=== PATIENT | female | born 1940 | race Caucasian/White ===

== ENCOUNTER 2017-11-14 08:45 | Outpatient (RCR) | payer MEDICARE, OTHER, SELFPAY ==
--- NOTE | 2017-11-14 09:00 | IE_ITS ---
Date: 11/14/17 Referring: ROSALINA Herrera M.D. Diagnosis: Neck pain P.T. Diagnosis: same, cervical spine DJD SUBJECTIVE: History of Present Illness: Joanie complains of a grinding sensation in her neck when she is turning. There is no significant pain associated with this. She has occasional occipital headache, but not necessarily more since she has noticed the crepitation. A 77 year old female who developed crepitation in her cervical spine a few months ago. Will occasionally interfere with her sleeping pattern. Pain Ratin/10 Current Level of Function: Independent with all ADL's, occasionally her sleep is disturbed when rolling and occasional headaches. Social: Lives alone, retired. Comorbidities: Hypertension, hyperlipidemia and vertigo. Falls in the last year: __X__ No ____Yes - How many? ____ - (if over 2, balance SM needs to be completed) Reported hospitalizations in the last year - __X__ No ____ Yes - Dates of admission/reason: Medications: Flonase, anti-hypertensives, Flovent, Meclizine, Diazepam prn. Quality of Life: ____ Excellent __X__ Good ____ Fair ____ Poor Standardized Measures: NDI score: __6%__ OBJECTIVE: Posture: Has a thoracic kyphosis, cervical lordosis and protracted scapula. Observation: (behavior, atrophy, skin color, etc.) Pleasant, no pain behavior noted. Palpation: Has increased tone throughout the PC3,4,5 R, lesser degree supraspinatus fossa. ROM: Her active cervical movements are 70 degrees rotation, sidebending is at 30 degrees with end range drawing throughout the corresponding soft tissue structures. Extension is at 45-50 degrees. AA in supine position rotation is 70-75 degrees, sidebending 45-50 It is difficult to straighten her cervical lordosis and her OA flexion is at 0 degrees. Her shoulder motion reveals good initiation of flexion/abduction, limited to 150 -155 degrees. Her thumbs are at about the T8 level when reaching behind her back. AAROM in supine position is full, other than ER on L at 80 degrees, causes some mild suprahumeral discomfort. Her elbow, forearm movements are full and painless. She has [place]berden nodes throughout the distal phalanges of her digits., Joint Accessory Motion: She has hypomobility with gliding to cervical spine, although there is also a considerable amount of splinting. Strength: Has full motor control, cuff is 5/5. Neuro: Reflexes symmetrical. Sensation intact, again motor 5/5. Special Tests: (-) pain with foraminal compression, or manual traction of cervical spine. Treatment: Consisted of the evaluation along with mobilization of the cervical and thoracic region. IE: [id number] Manual therapy: ([id number]). Direct treatment time: 60 MINS Total treatment time: 60 MINS ASSESSMENT: Patient is a 77-year-old female, referred for PT services with the diagnosis of Neck pain. Patient presents with clinical signs and symptoms consistent with DJD of the spine resulting in a thoracic kyphosis with cervical lordosis and mild limitation of her cervical spine, as demonstrated by the following impairment level findings: sleeping and possibly contributing to some occipital headaches. Patient is assessed as: __X__ Low 14681 ____ Moderate 91535 ____ High 40381 complexity, based on the following: History: (list): Recent cervical crepitation due to DJD, along with postural malalignments. See comorbidities and social history. Examination: (list): X See above for functional limitations and impairments. Presentation: Stable . X Evolving Unstable Decision-Making: X Low complexity Moderate complexity High complexity % Disability based on NDI of 6% __X__ Patient requires skilled PT intervention to remediate the above functional limitations to return to: __x__ Improve QOL G-Codes (fill in modifier after appropriate code): Patient's primary functional limitation is in the category of: __X__ Changing and maintaining body position: [id number] Projected goal: __x__ Changing and maintaining body position: [id number] STG: __6__ weeks. 1: Improve mobility of the thoracic and cervical spine in hopes to improve spinal alignment to unweight facet joints minimizing compressive loading to improve sleep and decrease headaches. LTG: __12__ weeks. 1: Improve quality of life. PLAN: Session today consisted of the evaluation along with unloading the cervical spine with manual traction, segmental gliding and AAROM with MET's into sidebending and rotation. I am careful to not elicit her vertigo type symptoms. I also perform PA glides to the thoracic spine and costovertebral articulations and issue her a written and illustrated home exercise program consisting of postural correction, gentle stretching of the cervical spine into sidebending and rotation. Emphasize the importance of doing this within limits of pain. Has a follow up in 2 weeks. Thank you for this referral. Please do not hesitate to contact me with any questions or concerns regarding this patient's plan of care. *Mar, please sign this evaluation if you are in agreement with the above stated plan of care. cc: ROSALINA Herrera
== END 2017-11-17 23:59 | disposition home or self-care (01) ==
LOC: PT 08:45
PROVIDERS: PCP Nurse Practitioner; Referring Provider Nurse Practitioner; Visit Provider Nurse Practitioner
DX: M54.2 Cervicalgia (principal); M50.30 Other cervical disc degeneration, unspecified cervical region
CPT/HCPCS: 97140; 97161

== ENCOUNTER 2017-12-22 08:30 | Outpatient (CLI) | payer MEDICARE, OTHER, SELFPAY ==
[2017-12-22 09:19] LABS: Hemoglobin A1C 6.7 % (4.5-6.2)
[2017-12-22 10:03] LABS: ALT 26 U/L (12-78); AST 24 U/L (15-37); Albumin 3.4 g/dL (3.4-5.0); Alkaline Phosphatase 84 U/L (46-116); Anion Gap 7.4 mmol/L (3-11); BUN 17 mg/dL (7-18); Bilirubin, Total 0.6 mg/dL (0.2-1.0); CO2 29.6 mmol/L (21.0-32.0); Calcium 8.6 mg/dL (8.5-10.1); Chloride 103 mmol/L (98-107); Cholesterol 130 mg/dL (50-200); Estimated GFR 48.16 (mL/min/1.73m2); Glucose 133 mg/dL (70-100); HDL Cholesterol 49 mg/dL (40-60); LDL CHOLESTEROL 68 mg/dL (<100); Sodium 140 mmol/L (136-145); Total Protein 6.4 g/dL (6.4-8.2); Triglyceride 115 mg/dL (30-150)
== END 2017-12-22 08:50 ==
PROVIDERS: PCP Nurse Practitioner; Visit Provider Nurse Practitioner
DX: I10 Essential (primary) hypertension (principal); E78.5 Hyperlipidemia, unspecified; E11.9 Type 2 diabetes mellitus without complications
CPT/HCPCS: 36415; 80053; 80061; 83721; 83036

== ENCOUNTER 2018-02-12 14:05 | Outpatient (CLI) | payer MEDICARE, OTHER, SELFPAY ==
[2018-02-12 15:23] LABS: Anion Gap 7.9 mmol/L (3-11); BUN 17 mg/dL (7-18); CO2 29.1 mmol/L (21.0-32.0); CREATININE 1.03 mg/dL (0.55-1.02); Calcium 9.5 mg/dL (8.5-10.1); Chloride 102 mmol/L (98-107); Estimated GFR 51.96 (mL/min/1.73m2); Glucose 145 mg/dL (70-100); Potassium 4.1 mmol/L (3.5-5.1); Sodium 139 mmol/L (136-145)
== END 2018-02-12 14:25 ==
PROVIDERS: PCP Nurse Practitioner; Visit Provider Nurse Practitioner
DX: R79.9 Abnormal finding of blood chemistry, unspecified (principal)
CPT/HCPCS: 36415; 80048

== ENCOUNTER 2018-05-03 01:57 | Outpatient (CLI) | payer MEDICARE, OTHER, SELFPAY ==
[2018-05-03 08:40] LABS: Anion Gap 10.7 mmol/L (3-11); BUN 21 mg/dL (7-18); CO2 28.3 mmol/L (21.0-32.0); Calcium 9.3 mg/dL (8.5-10.1); Chloride 103 mmol/L (98-107); Estimated GFR 48.16 (mL/min/1.73m2); Glucose 156 mg/dL (70-100); Potassium 3.9 mmol/L (3.5-5.1); Sodium 142 mmol/L (136-145)
== END 2018-05-03 02:17 ==
PROVIDERS: PCP Nurse Practitioner; Visit Provider Nurse Practitioner
DX: R79.9 Abnormal finding of blood chemistry, unspecified (principal)
CPT/HCPCS: 36415; 80048

== ENCOUNTER 2018-06-28 00:59 | Outpatient (CLI) | payer MEDICARE, OTHER, SELFPAY ==
[2018-06-28 08:38] LABS: Anion Gap 9.6 mmol/L (3-11); BUN 17 mg/dL (7-18); CO2 28.4 mmol/L (21.0-32.0); CREATININE 1.08 mg/dL (0.55-1.02); Chloride 103 mmol/L (98-107); Estimated GFR 49.19 (mL/min/1.73m2); Glucose 137 mg/dL (70-100); Potassium 4.3 mmol/L (3.5-5.1); Sodium 141 mmol/L (136-145)
== END 2018-06-28 01:19 ==
PROVIDERS: PCP Nurse Practitioner; Visit Provider Nurse Practitioner
DX: R94.4 Abnormal results of kidney function studies (principal)
CPT/HCPCS: 36415; 80048

== ENCOUNTER 2018-09-03 02:16 | Outpatient (CLI) | payer MEDICARE, OTHER, SELFPAY ==
--- NOTE | 2018-09-24 12:06 | ZIOP_ITS ---
DATE OF DICTATION: September 22, 2018 INDICATION: Palpitations. PRESCRIBING CLINICIAN: Mar Viera N.P. ENROLLMENT: 08/29/18 until 09/16/18 FINDINGS: 1. Baseline sinus rhythm, 52-122 bpm, average 73 bpm. 2. Rare PVC, < 1%, no VT. 3. Frequent PAC, 10.2%, frequent SVT runs (30), fastest 6 beats at 214 bpm, longest 15 beats at 128 bpm, no AF. 4. No pauses or bradycardia. 5. No symptoms recorded.
== END 2018-09-03 02:36 ==
PROVIDERS: PCP Nurse Practitioner; Visit Provider Nurse Practitioner
DX: R00.2 Palpitations (principal); I49.1 Atrial premature depolarization
CPT/HCPCS: 0296T

== ENCOUNTER 2018-12-24 02:40 | Outpatient (CLI) | payer MEDICARE, OTHER, SELFPAY ==
[2018-12-24 09:06] LABS: Hemoglobin A1C 6.8 % (4.5-6.2)
[2018-12-24 09:44] LABS: ALT 20 U/L (14-59); AST 19 U/L (15-37); Albumin 3.8 g/dL (3.4-5.0); Alkaline Phosphatase 82 U/L (46-116); Anion Gap 8.6 mmol/L (3-11); BUN 19 mg/dL (7-18); Bilirubin, Total 0.6 mg/dL (0.2-1.0); CO2 28.4 mmol/L (21.0-32.0); CREATININE 1.15 mg/dL (0.55-1.02); Calcium 9.1 mg/dL (8.5-10.1); Calculated LDL 76 mg/dL; Chloride 103 mmol/L (98-107); Cholesterol 148 mg/dL (50-200); Estimated GFR 45.64 (mL/min/1.73m2); Glucose 139 mg/dL (70-100); HDL Cholesterol 49 mg/dL (40-60); Potassium 4.1 mmol/L (3.5-5.1); Sodium 140 mmol/L (136-145); Triglyceride 118 mg/dL (30-150)
== END 2018-12-24 03:00 ==
PROVIDERS: PCP Nurse Practitioner; Visit Provider Nurse Practitioner
DX: E11.9 Type 2 diabetes mellitus without complications (principal); E78.5 Hyperlipidemia, unspecified; I10 Essential (primary) hypertension
CPT/HCPCS: 36415; 80053; 80061; 83036

== ENCOUNTER 2020-01-29 04:43 | Outpatient (CLI) | payer MEDICARE, OTHER, SELFPAY ==
[2020-01-29 10:47] LABS: ALT 21 U/L (14-59); AST 16 U/L (15-37); Albumin 3.8 g/dL (3.4-5.0); Alkaline Phosphatase 82 U/L (46-116); Anion Gap 8.3 mmol/L (3-11); BUN 20 mg/dL (7-18); Bilirubin, Total 0.7 mg/dL (0.2-1.0); CO2 28.7 mmol/L (21.0-32.0); CREATININE 1.17 mg/dL (0.55-1.02); Calcium 9.2 mg/dL (8.5-10.1); Chloride 102 mmol/L (98-107); Estimated GFR 44.62 (mL/min/1.73m2); Glucose 155 mg/dL (74-106); Potassium 4.2 mmol/L (3.5-5.1); Sodium 139 mmol/L (136-145)
== END 2020-01-29 05:03 ==
PROVIDERS: PCP Nurse Practitioner; Visit Provider Nurse Practitioner
DX: I10 Essential (primary) hypertension (principal)
CPT/HCPCS: 36415; 80053

== ENCOUNTER → 2020-02-25 10:27 | Outpatient (BNVA) | payer MEDICARE, OTHER, SELFPAY | PROVIDERS: PCP Nurse Practitioner; Referring Provider Nurse Practitioner; Visit Provider Surgery | DX: K64.8 Other hemorrhoids (principal); R10.10 Upper abdominal pain, unspecified; I10 Essential (primary) hypertension | CPT/HCPCS: 99212; 99213 ==

== ENCOUNTER 2020-08-18 00:56 | Outpatient (CLI) | payer MEDICARE, OTHER, SELFPAY ==
--- NOTE | 2020-08-18 07:15 | DI.NM_ITS ---
APPROVED REPORT Exam: Exercise Treadmill Patient Location: Out-Patient Room/Bed: Stress Nurse: Holley Del Rio RN Ordering Provider:QUINN BIRMINGHAM, Contact Number: [phone] BMI: 0 Baseline Rhythm: Sinus Rhythm Comment: inverted T waves in leads III and V3 Indications: ALBARRAN, Family history of CAD, [place], Palpitations. Medical History Medical History: ALBARRAN, DM II, OA, Obesity, HTN, GERD, Anxiety, HLD, Osteopenia, Asthma Cardiac Medications: Pantoprazole, Losartan, HCTZ, Atorvastatin, ASA, Flovent inhaler Allergies: Mushrooms, Simvastatin, Codeine, Sulfa, Lisinopril Cardiac Risk Factors: HTN, Hyperlipidemia, DM, FHX of CAD, Smoking (former), Asthma Previous Cardiac Procedures: None Pretest Chest Pain Characteristics: Exertional dyspnea, no chest pain Exercise History: Physically active, walks daily Physical Disabilities: None Lung Sounds: Clear to auscultation Heart Sounds: Regular Stress Test Details Test: Exercise stress testing was performed using a Kenn protocol. Nuclear Acquisition: Rest Tc-99m/Stress Tc-99m 1 day Rest Isotope: Tc-99m Sestamibi. Dose: 11.2 Date: 08/18/20 Injection Time: 0850 Stress Isotope: Tc-99m Sestamibi. Dose: 38.0 Date: 08/18/20 Injection Time: 1025 HR Resting HR Supine: 63 bpm Max Heart Rate (APMHR): 141.539518 bpm Resting HR Standin bpm Target HR (85% APMHR): 119.988089 bpm Max HR Achieved: 126 bpm % of APMHR: 89.36 Recovery HR: 70 bpm HR response to stress: Normal HR response to stress BP Resting BP Supine: 128/76 mmHg Resting BP Standin/72 mmHg Max BP: 180/60 mmHg Recovery BP: 144/74 mmHg BP response to stress: Normal blood pressure response to stress. ECG Resting ECG: Sinus Rhythm, inverted T waves in leads III and V3 Ectopy: None Stress ECG: Sinus Tachycardia ST Change: No significant ST segment changes noted Arrhythmia: occasional PAC Recovery ECG: Sinus Rhythm Recovery ST Change: No significant ST segment changes noted Recovery Arrhythmia: rare PVC, increasing frequency of PACs. Clinical Reason for Termination: Fatigue, Dyspnea Stress Symptoms: Dyspnea Exercise duration: 6 min03 sec Highest Stage Reached: Stage 2: 2.5 mph at 12% grade. Exercise capacity: 7.1 METs Rate Pressure Product: [id number] Stress ECG Conclusion 1. The patient exercised for 6 minutes (7 METS). The patient's blood pressure and heart rate augment ed appropriately. 2. Baseline T wave abnormalities make this ECG portion of the exam nondiagnostic. Stress Test Summary STAGE Time (mins) Speed (mph) Grade (%) HR BP SYMPTOMS METS Supine 63 128/76 Standing 68 142/78 1 3 1.7 10 109 166/62 4.6 2 6 2.5 12 125 Dyspnea. SpO2 99% 7 1 min recovery 98 180/60 3 min recovery 72 168/78 6 min recovery 70 144/74 MPI Conclusion Patient's ejection fraction was 66% with stress. There were no wall motion abnormalities. There was no evidence of ischemia on the imaging portion of the exam. This represents a normal SPECT stress test. Radiologist Interpretation Radiologist agrees with Web Development Instructor's Interpretation. Radiologist Interpretation by: Moise Posada MD Interpretation Date/Time: 08/18/2020 15:17:47
== END 2020-08-18 01:16 ==
PROVIDERS: PCP Nurse Practitioner; Visit Provider Nurse Practitioner
DX: R06.00 Dyspnea, unspecified (principal); Z82.49 Family history of ischemic heart disease and other diseases of the circulatory system; I25.2 Old myocardial infarction; R00.2 Palpitations; I10 Essential (primary) hypertension; E78.5 Hyperlipidemia, unspecified; E11.9 Type 2 diabetes mellitus without complications; Z87.891 Personal history of nicotine dependence; J45.909 Unspecified asthma, uncomplicated; I49.1 Atrial premature depolarization
CPT/HCPCS: 78452; 93016; 93018; 93017; J2785

== ENCOUNTER 2020-08-20 04:04 | Outpatient (CLI) | payer MEDICARE, OTHER, SELFPAY ==
--- NOTE | 2020-08-20 10:00 | NS.NUTBLAN_ITS ---
ASSESSMENT: Joanie (79 F) presents with referral for DM 2 education. She reports being diagnosed 5ys ago and is currently on no DM meds. She stated that she takes her BG 1x/day and this am FBG was 154mg/dl. Documentation reveals A1c 7.3% ( 08/04/20). Random fingerstick at this encounter revealed 134mg/dl. She stated her physical activity includes walking 2-3 miles/day. Joanie would benefit from a review of basic DM self management techniques in order to reduce her A1c to goal of <7.0%. Nutrition Diagnosis: Inconsistent CHO intake r/t DM2 AEB: A1C 7.3% . INTERVENTION: Educated patient on CHO counting techniques. Provided additional literature on same. Demonstrated and recommended Carbs and [employer] phone alex to help reiterate CHO counting. Recommended <60g/CHO/ per meal period. Reviewed and provided literature on desired BG ranges for PWD's. Set goal of A1c <7% in 30 days. Reviewed label reading and appropriate portion sizes for CHO intake. Discussed glycogen conversion by liver during sleeping hours resulting in elevated FBG's in am which was a concern for this patient. Suggested Healthy evening snack. Reviewed long-term complications associated with untreated DM. MONITOR/EVAL: Joanie has benefited from her daily walking and was receptive to regularly checking her BG and incorporating CHO counting and mindfulness r/t food choices. She is aware that she needs to monitor her CHO intake and BG levels to mitigate the potential for complications. She is stable at this time and understands that she may need medication ( metformin) if she is unable to get her A1c level below 7.0% Recommend f/u visit with Primary care for new A1c lab in 30 days. Time spent face to face: 1 hour/4 units
== END 2020-08-20 04:05 | disposition home or self-care (01) ==
LOC: DS 04:04
PROVIDERS: PCP Nurse Practitioner; Visit Provider Dietitian, Registered
DX: Z71.3 Dietary counseling and surveillance; E11.9 Type 2 diabetes mellitus without complications
CPT/HCPCS: 97802

== ENCOUNTER 2020-08-25 02:17 | Outpatient (CLI) | payer MEDICARE, OTHER, SELFPAY ==
--- NOTE | 2020-08-25 | DI.MAMMO_ITS ---
Exam(s) MAMMO SCREENING EXAM: MAMMO SCREENING CLINICAL HISTORY: SCREENING, Z12.39 TECHNIQUE: Bilateral full field digital CC and MLO mammographic images were obtained with 3D tomosyn thesis and utilizing computer aided detection (CAD). COMPARISON: Available for comparison. FINDINGS: Masses/Architectural Distortion: None seen. Microcalcifications: No suspicious pleomorphic-type are seen. Skin Thickening/Nipple Retraction: None. IMPRESSION: 1. No significant interval change with no specific features of malignancy noted. 2. Unless there is more urgent need, screening mammography is recommended, as per [employer] guidelines. BI-RADS Category 1 - Negative Breast Density - Category A - Almost entirely fatty Breast density category C or D implies that the patient has dense breast tissue. Dense breast tissue is very common and is not abnormal but dense breast tissue can make it harder to find cancer on a ma mmogram. Also, dense breast tissue may increase their breast cancer risk. This information about the result of the mammogram report was provided to the patient to raise their awareness. Use this report when you speak with the patient about their risks for breast cancer, which includes their family hist ory. At that time, you may recommend for more screening tests (Ultrasound or MRI) as they might be us eful based on their risk. A negative radiographic report should not delay biopsy if a dominant or clinically suspicious mass is present. Up to ten percent of cancers are not identified on mammography. A negative report may reinforce clinical impression. Adenosis and dense breasts may obscure an underlying neoplasm. False positive reports average 6 to 10%. Patient will receive a letter notifying them of these results.
== END 2020-08-25 02:37 ==
PROVIDERS: PCP Nurse Practitioner; Visit Provider Nurse Practitioner
DX: Z12.31 Encounter for screening mammogram for malignant neoplasm of breast (principal)
CPT/HCPCS: 77063; 77067

== ENCOUNTER 2020-11-05 03:02 | Outpatient (CLI) | payer MEDICARE, OTHER, SELFPAY ==
[2020-11-05 08:10] LABS: HCT 41.5 % (36.0-46.0); HGB 13.5 g/dL (11.2-15.7); MCH 29.7 pg (27.0-33.0); MCHC 32.5 % (32.0-36.0); MCV 91.4 fL (80-95); Platelet Count 323 10^3/uL (130-400); RBC 4.54 10^6/uL (3.93-5.22); RDW 13.1 % (11.7-14.6); RDW-SD 43.9 fL; WBC 8.93 10^3/uL (4.4-10.8)
[2020-11-05 08:35] LABS: Hemoglobin A1C 6.7 % (<5.7)
[2020-11-05 09:13] LABS: ALT 23 U/L (14-59); AST 14 U/L (15-37); Albumin 3.9 g/dL (3.4-5.0); Alkaline Phosphatase 68 U/L (46-116); Anion Gap 1.5 mmol/L (3-11); BUN 19 mg/dL (7-18); Bilirubin, Total 0.4 mg/dL (0.2-1.0); CO2 27.5 mmol/L (21.0-32.0); Calcium 9.3 mg/dL (8.5-10.1); Calculated LDL 75 mg/dL (<100); Chloride 106 mmol/L (98-107); Cholesterol 154 mg/dL (<200); Estimated GFR 53.35 (mL/min/1.73m2); Glucose 145 mg/dL (74-106); HDL Cholesterol 50 mg/dL (40-60); Sodium 135 mmol/L (136-145); Triglyceride 145 mg/dL (<150)
== END 2020-11-05 03:03 | disposition home or self-care (01) ==
LOC: LBO 03:02
PROVIDERS: PCP Nurse Practitioner; Visit Provider Nurse Practitioner
DX: I10 Essential (primary) hypertension (principal); E11.9 Type 2 diabetes mellitus without complications; E78.5 Hyperlipidemia, unspecified
CPT/HCPCS: 36415; 80053; 80061; 85027; 83036

== ENCOUNTER → 2020-12-15 13:55 | Outpatient (BNVA) | payer MEDICARE, OTHER, SELFPAY | PROVIDERS: PCP Nurse Practitioner; Referring Provider Nurse Practitioner; Visit Provider Surgery | DX: R10.10 Upper abdominal pain, unspecified (principal) | CPT/HCPCS: 99212 ==

== ENCOUNTER 2021-09-21 09:33 | Emergency (ER) | payer MEDICARE, OTHER, SELFPAY ==
[2021-09-21 09:44] VITALS: BP 170/75; PULSE 65; RESP 16; TEMP 36.3; O2SAT 98
--- NOTE | 2021-09-21 09:45 | RT.EKG_ITS ---
APPROVED REPORT Exam: Resting ECG Reason for Exam: epigastric pain Patient Location: E HR:60 bpm ECG Measurements Heart Rate 60 AXIS KS 199 P 53 QRSd 85 QRS 49 QT 408 T 32 QTc 406 Conclusion Sinus rhythm...normal P axis, V-rate 60- 99. Sinus. Normal axis. No STEMI. I have reviewed and interpreted ECG and agree with software generated interpretation.
[2021-09-21 10:11] LABS: Bilirubin Negative (Negative); Blood Trace-intact (Negative); Clarity Clear (Clear); Glucose Negative (Negative); Ketones Negative (Negative); Leukocyte Esterase Negative (Negative); Nitrite Negative (Negative); Urobilinogen 0.2 EU/dL (Up TO 0.2); pH 5.5 (5-8)
[2021-09-21 10:17] LABS: Bacteria Few HPF (Negative); Epithelial Cells Moderate HPF (Negative); WBC 0-2 HPF (0-5)
[2021-09-21 10:18] LABS: C & S Indicated? No/Sq. Contamination; Casts Negative LPF (Negative); Crystals Negative HPF (Negative); Mucus Negative (Negative)
--- NOTE | 2021-09-21 10:30 | DI.RAD_ITS ---
Exam(s) XR CHEST 2V PA LATERAL EXAM: XR CHEST 2V PA LATERAL CLINICAL HISTORY: nausea, epigastric discomfort, r/o acute disease. TECHNIQUE: 2D digital imaging was performed. COMPARISON: CR ABD FLAT UPRIGHT PA CHEST from 10/09/2012 FINDINGS: 2 views: Elevated right hemidiaphragm is unchanged from 2013. Heart size is normal. The mediastinum is not widened. Platelike atelectasis in the lower half of the right lung field is unchanged. No new infiltrates nor pleural effusions. No pneumothorax. No pulmonary edema. IMPRESSION: No acute pulmonary findings.Platelike atelectasis in the right lung base, probably scarring as unchan ged from 2013. DATA REPOSITORY: RADIATION DOSE DELIVERED:
--- NOTE | 2021-09-21 10:43 | ED.GENADUL_ITS ---
Discharge Plan Disposition Patient Disposition: HOME Condition: Improving Discharge Details Clinical Impression: Indigestion, Belching, Dyspepsia, Nausea Primary Care Provider: Mar Viera ED Provider: Malgorzata Simons Home Meds and New Rx's Prescriptions: New sucralfate [Carafate] 1 gram tablet 1 gm PO QACHS Qty: 14 0RF Continued atorvastatin 10 mg tablet 10 mg PO DAILY Qty: 90 3RF ascorbic acid (vitamin C) 500 MG tablet 500 mg PO DAILY vitamin B complex 1 EACH tablet 1 ea PO DAILY [id number]-afz-yfdq-bor 1 EACH tablet 1 ea PO DAILY Probiotic and Acidophilus 1 EACH capsule 1 ea PO DAILY cholecalciferol (vitamin D3) 1,000 UNIT tablet 1,000 unit PO DAILY aspirin [Adult Low Dose Aspirin] 81 mg tablet,delayed release (DR/EC) 81 mg PO Q48H nystatin 100,000 unit/gram powder 1 applic TP BID PRN (Reason: Rash abdominal folds.) Qty: 60 5RF fluticasone propionate 50 mcg/actuation spray,suspension 50 mcg NS DAILY Qty: 1 6RF Rx Instructions: 1 spray/nostril daily fluticasone propionate [Flovent HFA] 110 mcg/actuation HFA aerosol inhaler 1 puff Inhalation BID Qty: 36 3RF meclizine 25 mg tablet 25 mg PO DAILY PRN (Reason: vertigo) Qty: 20 12RF hydrochlorothiazide 25 mg tablet 25 mg PO DAILY Qty: 90 3RF (DME) blood sugar diagnostic Strip See Rx Instructions .ROUTE .MEDSUPPLY Qty: 100 3RF Rx Instructions: dispense One Touch Ultra test strips to test blood sugars daily to maintain AIC at 7 or less, E11.9 (DME) lancets [OneTouch Delica Lancets] 33 gauge misc 1 ea Miscellaneous DAILY Qty: 50 6RF Rx Instructions: to identify BS for DM E11.9 to keep A1c at or below 7 losartan 100 mg tablet 100 mg PO DAILY Qty: 90 3RF pantoprazole 40 mg tablet,delayed release (DR/EC) 40 mg PO DAILY Qty: 90 3RF No Action ondansetron 4 mg tablet,disintegrating 4 mg PO TID PRN (Reason: nausea and vomiting) Qty: 10 0RF Discharge Instructions Additional Instructions: Your lab work today is reassuring and shows no evidence of acute concerning or significant findings. A prescription for Carafate for your indigestion and upper abdominal discomfort and a prescription for Zofran for your nausea has been sent electronically to your pharmacy. Call your primary care doctor today to schedule a follow-up appointment for reevaluation within the next week and referral to general surgery if your symptoms do not improve or worsen for consideration for upper endoscopy if indicated. Return immediately to the emergency department if you develop any worsening or new concerning symptoms. Discharge Data Discharge Date/Time-TO BE ENTERED AT DEPARTURE: 09/21/21 14:05 Discharge Physician: Malgorzata Simons Medical Decision Making 81-year-old female with a history of hypertension, hyperlipidemia, GERD, diabetes, gallstone pancreatitis, cholecystectomy, appendectomy presents for 3 days of belching, nausea, indigestion and dyspepsia. EKG done on arrival due to patient's age and comorbidities and notes a rate of 60, sinus, normal axis and nondiagnostic. Blood pressure hypertensive at 170/75. She otherwise appears comfortable and nontoxic. Abdomen is soft and nontender. Her lungs are clear bilaterally. Suspect GERD, consider gastritis, PUD. History and presentation does not appear consistent with ACS, PE, dissection, AAA. Considering her age and history will obtain screening labs, chest x-ray and give IV Pepcid, IV Zofran, oral Carafate and GI cocktail and reassess. As she has no complaint of abdominal pain and her abdomen is soft and nontender, do not see indication for abdominal CT imaging and pt is agreeable with this plan at this time. Review of records note that in July 2017 patient had an EGD which noted: Severe inflammation throughout the stomach. No ulcerations were noted. The duodenum was normal. The esophagus was normal. The GE junction was at 35cm. Labs and imaging reviewed and unremarkable. Patient reassessed and she feels much better. She was able to take p.o. and has no further nausea and denies any abdominal pain at any time. Advised to follow-up with her primary care doctor for reevaluation and for referral to general surgery if her symptoms do not improve or worsen. A prescription for Carafate has been sent electronically to her pharmacy. She is advised to continue to take her daily pantoprazole. Advised to follow up with the primary care doctor for re-evaluation. Usual and customary return precautions given prior to discharge. Medical Records Medical records reviewed: Yes I reviewed the patient's medical records. Imaging Data Radiologic Study: Radiologist's impression: XR CHEST 2V PA ? LATERAL CLINICAL HISTORY: ? nausea, epigastric discomfort, r/o acute disease. ? TECHNIQUE:? 2D digital imaging was performed. COMPARISON:? CR ABD FLAT UPRIGHT PA CHEST from 10/09/2012 FINDINGS: 2 views: Elevated right hemidiaphragm is unchanged from 2013. Heart size is normal.? The mediastinum is not widened. Platelike atelectasis in the lower half of the right lung field is unchanged.? No new infiltrates nor pleural effusions.? No pneumothorax.? No pulmonary edema. IMPRESSION: No acute pulmonary findings.Platelike atelectasis in the right lung base, probably scarring as unchanged from 2013. Lab Data Lab results reviewed: Yes I reviewed the patient's lab results. Labs: Laboratory Tests Range/Units 09/21/21 09/21/21 09/21/21 10:01 11:18 11:18 WBC (4.4-10.8) 10^3/uL 8.20 RBC (3.93-5.22) 10^6/uL 4.43 Hgb (11.2-15.7) g/dL 13.2 Hct (36.0-46.0) % 40.2 MCV (80-95) fL 91 MCH (27.0-33.0) pg 29.8 MCHC (32.0-36.0) % 32.8 RDW (11.7-14.6) % 12.9 Plt Count (130-400) 10^3/uL 298 MPV (8.0-11.0) fL 11.3 H Immature Gran % 0.2 Neutrophils % 63.0 Lymphocytes % 25.5 Monocytes % 7.4 Eosinophils % 2.9 Basophils % 1.0 Nucleated RBC % (0.0-0.3) % 0.0 Absolute Neutrophils (1.2-6.7) 10^3/uL 5.16 Absolute Lymphocytes (1.2-3.4) 10^3/uL 2.09 Absolute Monocytes (0.1-0.8) 10^3/uL 0.61 Absolute Eosinophils (0.0-0.7) 10^3/uL 0.24 Absolute Basophils (0.0-0.2) 10^3/uL 0.08 Sodium (136-145) mmol/L 139 Potassium (3.5-5.1) mmol/L 3.9 Chloride (98-107) mmol/L 103 Carbon Dioxide (21.0-32.0) mmol/L 27.5 Anion Gap (3-11) mmol/L 8.5 BUN (7-18) mg/dL 16 Creatinine (0.55-1.02) mg/dL 1.2 H Estimated GFR/1.73 m2 (mL/min/1.73m2) 43.23 Glucose (74-106) mg/dL 131 H Calcium (8.5-10.1) mg/dL 9.2 Magnesium (1.8-2.4) mg/dL 1.9 Total Bilirubin (0.2-1.0) mg/dL 0.6 AST (15-37) U/L 16 ALT (14-59) U/L 20 Alkaline Phosphatase (46-116) U/L 72 Troponin I (<or=60) ng/L < 50 Total Protein (6.4-8.2) g/dL 7.1 Albumin (3.4-5.0) g/dL 3.8 Lipase (73-393) U/L 64 Urine Color (Yellow) Yellow Urine Clarity (Clear) Clear Urine pH (5-8) 5.5 Ur Specific [place] (1.005-1.025) 1.020 Urine Protein (Negative) mg/dL Negative Urine Ketones (Negative) mg/dL Negative Urine Blood (Negative) Trace-intact H Urine Nitrite (Negative) Negative Urine Bilirubin (Negative) Negative Urine Urobilinogen (Up TO 0.2) EU/dL 0.2 Ur Leukocyte Esterase (Negative) Negative Urine RBC (0-2) HPF 3-5 H Urine WBC (0-5) HPF 0-2 Ur Epithelial Cells (Negative) HPF Moderate Urine Crystals (Negative) HPF Negative Urine Bacteria (Negative) HPF Few Urine Casts (Negative) LPF Negative Urine Mucus (Negative) Negative Ur Culture Indicated? No/Sq. Contamination Urine Glucose (Negative) mg/dL Negative ECG Data Attestation: I personally reviewed and interpreted this ECG (s) as follows: Interpretation: Rate of 60, sinus, normal axis, no STEMI. HPI General Mode of arrival: ambulatory . Date/Time Provider Initiated Documentation: 09/21/21 09:51 . Limitations to Documentation: no limitations . Information obtained by: patient . HPI Narrative: Patient is an 80-year-old female with a history of hypertension, hyperlipidemia, GERD, PTSD, diabetes, asthma, gallstone pancreatitis, cholecystectomy, appendectomy who presents with 3 days of nausea, indigestion, belching and complaint of tasting food in my mouth . Patient states she takes pantoprazole for reflux but she took this morning. She denies any fever, vomiting, diarrhea, urinary symptoms, abdominal pain, chest pain, shortness of breath. She has had similar symptoms in the past with GERD but states this is more intense than previously. She denies any recent travel, recent antibiotics or other new medications. Related Data Home Medications Medication Instructions Recorded Confirmed ascorbic acid (vitamin C) 500 mg 500 mg PO DAILY 06/18/12 09/24/21 tablet pihrhit-T1-wma-Bf-mmsea-duev-boron 1 ea PO DAILY 06/18/12 09/24/21 600 mg-200 unit-40 mg-7.5 mg tablet vitamin B complex 1 ea PO DAILY 06/18/12 09/24/21 Lactobacillus comb 1 ea PO DAILY 10/24/14 09/24/21 no.5-BDJ-fwetiohnuh 300 million cell-250 mg capsule (Probiotic and Acidophilus) cholecalciferol (vitamin D3) 25 1,000 unit PO DAILY 01/25/17 09/24/21 mcg (1,000 unit) tablet aspirin 81 mg tablet,delayed 81 mg PO Q48H 07/09/18 09/24/21 release (Adult Low Dose Aspirin) nystatin 100,000 unit/gram topical 1 applic topical BID PRN Rash 12/19/18 09/24/21 powder abdominal folds. #60 grams fluticasone propionate 50 50 mcg NS DAILY #1 unit 03/30/20 09/24/21 mcg/actuation nasal spray,suspension atorvastatin 10 mg tablet 10 mg PO DAILY #90 tabs 11/18/20 09/24/21 fluticasone propionate 110 1 puff inhalation BID #36 grams 02/09/21 09/24/21 mcg/actuation HFA aerosol inhaler (Flovent HFA) meclizine 25 mg tablet 25 mg PO DAILY PRN vertigo #20 tabs 04/07/21 09/24/21 hydrochlorothiazide 25 mg tablet 25 mg PO DAILY #90 tabs 04/13/21 09/24/21 blood sugar diagnostic #100 ea 07/06/21 09/24/21 lancets 33 gauge ([facility] #[facility] ea 07/06/21 09/24/21 Lancets) losartan 100 mg tablet 100 mg PO DAILY #90 tab-caps 09/21/21 09/24/21 pantoprazole 40 mg tablet,delayed 40 mg PO DAILY #90 tabs 09/21/21 09/24/21 release sucralfate 1 gram tablet (Carafate) 1 gm PO QACHS #14 tabs 09/21/21 09/24/21 ondansetron 4 mg disintegrating 4 mg PO TID PRN nausea and 09/24/21 tablet vomiting #10 tabs Previous Rx's Medication Instructions Recorded nystatin 100,000 unit/gram topical 1 applic topical BID PRN Rash 12/19/18 powder abdominal folds. #60 grams fluticasone propionate 50 50 mcg NS DAILY #1 unit 03/30/20 mcg/actuation nasal spray,suspension atorvastatin 10 mg tablet 10 mg PO DAILY #90 tabs 11/18/20 fluticasone propionate 110 1 puff inhalation BID #36 grams 02/09/21 mcg/actuation HFA aerosol inhaler (Flovent HFA) meclizine 25 mg tablet 25 mg PO DAILY PRN vertigo #20 tabs 04/07/21 hydrochlorothiazide 25 mg tablet 25 mg PO DAILY #90 tabs 04/13/21 blood sugar diagnostic #100 ea 07/06/21 lancets 33 gauge ([facility] #50 ea 07/06/21 Lancets) losartan 100 mg tablet 100 mg PO DAILY #90 tab-caps 09/21/21 pantoprazole 40 mg tablet,delayed 40 mg PO DAILY #90 tabs 09/21/21 release sucralfate 1 gram tablet (Carafate) 1 gm PO QACHS #14 tabs 09/21/21 ondansetron 4 mg disintegrating 4 mg PO TID PRN nausea and 09/24/21 tablet vomiting #10 tabs Allergies Allergy/AdvReac Type Severity Reaction Status Date / Time mushroom Allergy Severe Anaphylaxsi Verified 09/24/21 16:02 s codeine Allergy Unknown as child Verified 09/24/21 16:02 Sulfa (Sulfonamide Allergy Unknown as child Verified 09/24/21 16:02 Antibiotics) lisinopril AdvReac Mild cough Verified 09/24/21 16:02 simvastatin AdvReac Mild 01/22/2017 Verified 09/24/21 16:02 joint pain General Stated Complaint: Abd Prob LACEY: 3 Review of Systems All systems reviewed & are unremarkable except as noted in HPI and below Constitutional Constitutional: Denies chills, Denies excessive sweating, Denies fatigue, Denies fever(s), Denies weakness and Denies weight loss Eyes Eyes: Reports system reviewed and no additional complaints, except as documented and Denies blurry vision ENT Ears, Nose, Mouth, and Throat: Denies vertigo, Denies dizziness, Denies otalgia, Denies nasal congestion, Denies sore throat and Denies throat swelling Cardiovascular Cardiovascular: Denies chest pain, Denies syncope, Denies rapid heart rate and Denies dyspnea Respiratory Respiratory: Denies chest congestion, Denies cough, Denies pain on inspiration and Denies dyspnea Gastrointestinal Gastrointestinal: Denies abdominal pain, Reports belching, Reports dyspepsia, Denies diarrhea, Reports nausea and Denies vomiting Genitourinary Genitourinary: Denies hematuria, Denies dysuria and Denies flank pain Musculoskeletal Musculoskeletal: Denies back pain and Denies joint swelling Integumentary/Breasts Skin/Breast: Denies lesions and Denies rash Neurologic Neurologic: Denies behavioral changes, Denies confusion, Denies vertigo, Denies dizziness, Denies syncope, Denies localized weakness and Denies weakness Psychiatric Psychiatric: Denies behavioral changes, Denies confusion and Denies depression Endocrine Endocrine: Denies excessive sweating and Denies fatigue Hematologic/Lymphatic Hematologic/Lymphatic: Denies easy bruising and Denies lymphadenopathy Allergic/Immunologic Allergic/Immunologic: Denies throat swelling PFSH All Active Problems Indigestion (Acute) Belching (Acute) Dyspepsia (Acute) Nausea (Acute) Postprandial nausea (Acute) Hypokalemia (Acute) ALBARRAN (dyspnea on exertion) (Acute) Benign paroxysmal positional vertigo of right ear (Acute 06/22/15) Essential hypertension (Acute 07/06/12) FRS 25% Osteoarthrosis (Acute 10/22/13) in Knee per Dr. Neville at [facility] RH Osteopenia (Acute 01/09/12) DEXA 12/2011 NL except forearm T -1.3 Vertigo (Acute 05/08/15) Diabetes mellitus (Chronic) Eosinophilic gastritis (Chronic) Insomnia (Chronic) PTSD (post-traumatic stress disorder) (Chronic) Abdominal bloating (Acute) [place] [facility] [place] (Ac[place]) Low back pain (Acute) Internal hemorrhoids (Acute) Hypertension (Chronic) Impaired fasting glucose (Acute 07/19/11) Hyperlipidemia (Acute 07/06/12) PCEq 15%; baseline LDL 149 Gastroesophageal reflux disease (Acute 07/19/11) Gallstone pancreatitis (Acute 10/26/12) lap cholecystectomy 09/2012 Dr Cox Esophageal reflux (Acute 07/19/11) Diabetes type 2, controlled (Acute 06/10/15) Asthma (Acute 12/03/12) intermittent Pancreatitis (Chronic 10/09/12) irst episode of pancreatitis of uncertain etiology. Benign hypertension (Chronic) Hyperlipidemia (Chronic) June 2012-Total cholesterol 232; triglycerides 147; LDL 148 and HDL 52--todays labs pending. Asthma (Chronic) Intermittent asthma. Diverticulitis (Acute 09/16/14) Osteoarthritis (Chronic) Esophageal reflux (Chronic) Chronic rhinitis (Chronic) Impaired fasting glucose (Chronic) Osteopenia (Chronic) H/O surgical procedure (Chronic) a. appendectomy as a child b. 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 Gallstone pancreatitis GERD (gastroesophageal reflux disease) Hyperlipidemia Obesity Stage I obesity with a BMI of 31 .0 Skin lesions Surgical History Cholecystectomy (10/11/12) EGD - MAC (08/01/17) History of appendectomy Family History Brother Heart disease pacemaker Neoplasm Kidney Social History Smoking/Tobacco Use Status: Former Tobacco Use Smoking risk assessment performed?: Yes Alcohol Intake: current Alcohol Intake frequency: holidays/special occasions only Drug use: Never Substance use type: does not use Household members: none Number of Children: 0 Current gender identity: female What type of physical activity do you participate in: walking and other Details: Alexis Chi 1x/week Duration: 30-45 minutes/day Frequency: 3-4 times per week Do you feel safe at home: Yes Do you feel safe in your relationship?: Yes Exam Const General: cooperative and no acute distress Orientation: alert, awake and oriented x3 HENMT Head: normal to inspection Ears: hearing grossly normal bilaterally, external ears normal and TM's normal bilaterally General nose exam: external nose normal Face and sinus: normal facial exam Mouth: oral mucosae normal Teeth and gingiva: dentition normal Throat: posterior oropharynx normal Eyes General: appearance normal, both eyes and all related structures Eyelids: eyelids normal Pupils: PERRL EOM: EOM intact bilaterally Neck Neck: normal visual inspection Lymphatic: no lymphadenopathy noted Chest Chest: normal inspection of the chest Resp Effort & Inspection: normal respiratory effort and able to speak in complete sentences Auscultation: clear to auscultation bilaterally Cardio Rate: regular rate Rhythm: regular rhythm GI Inspection: normal to inspection Palpation: soft, not firm, no guarding, no hepatosplenomegaly, no masses and nontender Auscultation: normal bowel sounds Back/Spine/Pelvis Back: no CVA tenderness Skin General skin exam: no rashes or lesions noted Neuro General: patient alert and patient awake Cognition: normal cognition Speech: speech normal Gait: normal gait Motor: muscle tone normal throughout Sensory Exam: no sensory deficits noted Extrem General: normal to inspection, full ROM and capillary refill normal Psych Appearance: grossly normal Mental Status: mental status grossly normal Speech and Movement: speech and movement normal Affect: normal affect Thought Process: normal Course Vital Signs Vital signs: Vital Signs Temperature 97.3 F L 09/21/21 09:44 Pulse 65 09/21/21 09:44 Respiratory Rate 16 09/21/21 09:44 Blood Pressure 170/75 H 09/21/21 09:44 Pulse Oximetry 98 09/21/21 09:44 Temperature 97.3 F L 09/21/21 09:44 Pulse 65 09/21/21 09:44 Respiratory Rate 16 09/21/21 09:44 Respiratory Effort 09/21/21 10:14 Blood Pressure 170/75 H 09/21/21 09:44 Blood Pressure Position Sitting 09/21/21 09:44 Pulse Oximetry 98 09/21/21 09:44 Oxygen Delivery Method Room Air 09/21/21 09:44 Oxygen Flow Rate 0 09/21/21 09:44 Lab/Test Results Lab/Test Results: Laboratory Tests Range/Units 09/21/21 10:01 Urine Color (Yellow) Yellow Urine Clarity (Clear) Clear Urine pH (5-8) 5.5 Ur Specific [place] (1.005-1.025) 1.020 Urine Protein (Negative) mg/dL Negative Urine Ketones (Negative) mg/dL Negative Urine Blood (Negative) Trace-intact H Urine Nitrite (Negative) Negative Urine Bilirubin (Negative) Negative Urine Urobilinogen (Up TO 0.2) EU/dL 0.2 Ur Leukocyte Esterase (Negative) Negative Urine RBC (0-2) HPF 3-5 H Urine WBC (0-5) HPF 0-2 Ur Epithelial Cells (Negative) HPF Moderate Urine Crystals (Negative) HPF Negative Urine Bacteria (Negative) HPF Few Urine Casts (Negative) LPF Negative Urine Mucus (Negative) Negative Ur Culture Indicated? No/Sq. Contamination Urine Glucose (Negative) mg/dL Negative
[2021-09-21] MEDS: Sucralfate 1 GM TAB PO (11:22)
[2021-09-21] MEDS: Ondansetron 4 MG/2 ML VIAL IVP (11:22)
[2021-09-21 11:23] LABS: Abs Immature Grans 0.02 10^3/uL (0.0-0.06); Absolute Basophil Count 0.08 10^3/uL (0.0-0.2); Absolute Eosinophil Count 0.24 10^3/uL (0.0-0.7); Absolute Lymphocyte Count 2.09 10^3/uL (1.2-3.4); Absolute Monocyte Count 0.61 10^3/uL (0.1-0.8); Absolute Neutrophil Count 5.16 10^3/uL (1.2-6.7); Eosinophils % 2.9; HCT 40.2 % (36.0-46.0); HGB 13.2 g/dL (11.2-15.7); Immature Grans % 0.2; Lymphocytes % 25.5; MCH 29.8 pg (27.0-33.0); MCHC 32.8 % (32.0-36.0); MCV 91 fL (80-95); MPV 11.3 fL (8.0-11.0); Monocytes % 7.4; Platelet Count 298 10^3/uL (130-400); RBC 4.43 10^6/uL (3.93-5.22); RDW 12.9 % (11.7-14.6); RDW-SD 43.1 fL
[2021-09-21] MEDS: Famotidine 20 MG/2 ML VIAL IVP (11:23)
[2021-09-21] MEDS: Normal Saline 500 ML IV (11:38)
[2021-09-21 11:41] LABS: ALT 20 U/L (14-59); AST 16 U/L (15-37); Albumin 3.8 g/dL (3.4-5.0); Alkaline Phosphatase 72 U/L (46-116); Anion Gap 8.5 mmol/L (3-11); BUN 16 mg/dL (7-18); Bilirubin, Total 0.6 mg/dL (0.2-1.0); CO2 27.5 mmol/L (21.0-32.0); CREATININE 1.2 mg/dL (0.55-1.02); Calcium 9.2 mg/dL (8.5-10.1); Chloride 103 mmol/L (98-107); Estimated GFR 43.23 (mL/min/1.73m2); Glucose 131 mg/dL (74-106); Lipase 64 U/L (73-393); Magnesium 1.9 mg/dL (1.8-2.4); Potassium 3.9 mmol/L (3.5-5.1); Sodium 139 mmol/L (136-145); Total Protein 7.1 g/dL (6.4-8.2); Troponin I < 50 ng/L (<or=60)
[2021-09-21 12:20] VITALS: BP 153/62; PULSE 62; RESP 14; O2SAT 99
--- NOTE | 2021-09-21 12:26 | NUR.NOTE ---
Nursing Note: patient trialling diandra aide and crackers at this time
[2021-09-21 13:33] VITALS: BP 145/59; PULSE 67; RESP 14; O2SAT 98
== END 2021-09-21 14:05 | disposition home or self-care (01) ==
PROVIDERS: Emergency Provider Physician Assistant; PCP Nurse Practitioner
DX: K30 Functional dyspepsia (principal); I10 Essential (primary) hypertension; E11.9 Type 2 diabetes mellitus without complications; J45.909 Unspecified asthma, uncomplicated; Z87.891 Personal history of nicotine dependence; Z79.51 Long term (current) use of inhaled steroids; Z79.82 Long term (current) use of aspirin; Z90.49 Acquired absence of other specified parts of digestive tract
CPT/HCPCS: 80053; 83690; 93005; 96361; 96374; 96375; 99284; 71046; 81003; 81015; 83735; 84484; 85025; 93010; 99285; J2405

== ENCOUNTER 2021-09-24 12:52 | Emergency (ER) | payer MEDICARE, OTHER, SELFPAY ==
[2021-09-24 12:53] VITALS: BP 158/86; PULSE 80; RESP 18; TEMP 36.8; O2SAT 99
[2021-09-24 13:57] LABS: Abs Immature Grans 0.02 10^3/uL (0.0-0.06); Absolute Basophil Count 0.08 10^3/uL (0.0-0.2); Absolute Eosinophil Count 0.15 10^3/uL (0.0-0.7); Absolute Lymphocyte Count 2.24 10^3/uL (1.2-3.4); Absolute Monocyte Count 0.76 10^3/uL (0.1-0.8); Absolute Neutrophil Count 5.48 10^3/uL (1.2-6.7); Basophils % 0.9; Eosinophils % 1.7; HGB 13.9 g/dL (11.2-15.7); Immature Grans % 0.2; Lymphocytes % 25.7; MCH 30.5 pg (27.0-33.0); MCHC 34.8 % (32.0-36.0); MCV 88 fL (80-95); MPV 11.1 fL (8.0-11.0); Monocytes % 8.7; Neutrophils % 62.8; Platelet Count 316 10^3/uL (130-400); RBC 4.56 10^6/uL (3.93-5.22); RDW 12.8 % (11.7-14.6); RDW-SD 41.6 fL; WBC 8.73 10^3/uL (4.4-10.8)
[2021-09-24] MEDS: Normal Saline 500 ML IV (14:08)
[2021-09-24] MEDS: FAMOTIDINE 20 MG in Normal Saline 100 ML 400 MG IVPB (14:09)
[2021-09-24] MEDS: Ondansetron 4 MG/2 ML VIAL IVP (14:09)
[2021-09-24 14:12] LABS: ALT 18 U/L (14-59); AST 13 U/L (15-37); Albumin 3.9 g/dL (3.4-5.0); Alkaline Phosphatase 72 U/L (46-116); Anion Gap 10.5 mmol/L (3-11); BUN 20 mg/dL (7-18); Bilirubin, Total 0.7 mg/dL (0.2-1.0); CO2 26.5 mmol/L (21.0-32.0); CREATININE 1.1 mg/dL (0.55-1.02); Calcium 9.5 mg/dL (8.5-10.1); Chloride 102 mmol/L (98-107); Estimated GFR 47.67 (mL/min/1.73m2); Glucose 112 mg/dL (74-106); Lipase 82 U/L (73-393); Potassium 3.4 mmol/L (3.5-5.1); Sodium 139 mmol/L (136-145); Total Protein 7.3 g/dL (6.4-8.2)
--- NOTE | 2021-09-24 15:30 | ED.GENADUL_ITS ---
Discharge Plan Disposition Patient Disposition: HOME Condition: Stable Discharge Details Clinical Impression: Postprandial nausea, Hypokalemia Primary Care Provider: Mar Viera ED Provider: Ezequiel Taylor Home Meds and New Rx's Prescriptions: Continued atorvastatin 10 mg tablet 10 mg PO DAILY Qty: 90 3RF ascorbic acid (vitamin C) 500 MG tablet 500 mg PO DAILY vitamin B complex 1 EACH tablet 1 ea PO DAILY Yg-V1-itt-sebr-kep-jyco-bor 1 EACH tablet 1 ea PO DAILY Probiotic and Acidophilus 1 EACH capsule 1 ea PO DAILY cholecalciferol (vitamin D3) 1,000 UNIT tablet 1,000 unit PO DAILY aspirin [Adult Low Dose Aspirin] 81 mg tablet,delayed release (DR/EC) 81 mg PO Q48H nystatin 100,000 unit/gram powder 1 applic TP BID PRN (Reason: Rash abdominal folds.) Qty: 60 5RF fluticasone propionate 50 mcg/actuation spray,suspension 50 mcg NS DAILY Qty: 1 6RF Rx Instructions: 1 spray/nostril daily fluticasone propionate [Flovent HFA] 110 mcg/actuation HFA aerosol inhaler 1 puff Inhalation BID Qty: 36 3RF meclizine 25 mg tablet 25 mg PO DAILY PRN (Reason: vertigo) Qty: 20 12RF hydrochlorothiazide 25 mg tablet 25 mg PO DAILY Qty: 90 3RF (DME) blood sugar diagnostic Strip See Rx Instructions .ROUTE .MEDSUPPLY Qty: 100 3RF Rx Instructions: dispense One Touch Ultra test strips to test blood sugars daily to maintain AIC at 7 or less, E11.9 (DME) lancets [OneTouch Delica Lancets] 33 gauge misc 1 ea Miscellaneous DAILY Qty: 50 6RF Rx Instructions: to identify BS for DM E11.9 to keep A1c at or below 7 losartan 100 mg tablet 100 mg PO DAILY Qty: 90 3RF sucralfate [Carafate] 1 gram tablet 1 gm PO QACHS Qty: 14 0RF ondansetron 4 mg tablet,disintegrating 4 mg PO TID PRN (Reason: nausea and vomiting) Qty: 10 0RF No Action pantoprazole 40 mg tablet,delayed release (DR/EC) 40 mg PO DAILY Qty: 90 3RF Discharge Instructions Instructions: Ondansetron (By mouth), Hypokalemia (ED), Acute Nausea and Vomiting (ED) Additional Instructions: Please maintain a clear liquid diet for the next few days. Please take medications as prescribed. Use Zofran 4 mg tablet once by mouth every 8 hours as needed for nausea. Please follow-up with your primary care physician next week. Please follow-up with general surgery for endoscopy. Return to the emergency department immediately for any worsening or new concerning symptoms. Referrals: [facility] [Provider Group] Mar Viera NP [Primary Care Provider] - Discharge Data Discharge Date/Time-TO BE ENTERED AT DEPARTURE: 09/24/21 16:30 Medical Decision Making 81-year-old female here with nausea with any attempted oral intake over the past week. Patient has no abdominal pain. Abdominal exam is benign. Patient was seen here in the emerge department 3 days ago and prescribed Carafate and Zofran and unfortunately is not able to take the Zofran because of insurance approval. Patient patient does have some mucous membranes. I am concerned about hypovolemia. Considered dehydration -labs reviewed and mild hypokalemia noted with potassium of 3.4. I will replete with oral potassium. Patient was reassessed after IV fluid and antiemetic and notes she is feeling much better. Patient was given p.o. challenge and tolerated. Plan will be for discharge with outpatient follow-up with PCP. She has s cheduled appointment next week. I will also refer to general surgery for EGD. Disposition decision was made weighing the risks and benefits of hospitalization versus outpatient treatment, the risk for further decompensation, and the patient's wishes. The patient was stable and requested discharge. Prior to discharge, my usual and customary return precautions were reviewed with the patient - this included follow-up instructions and reason to return to the emergency department if condition worsens, does not improve as expected, or other new concerns arise.. Medical Records Medical records reviewed: Yes I reviewed the patient's medical records. Medical records narrative: Review of records note that in July 2017 patient had an EGD which noted: Severe inflammation throughout the stomach. No ulcerations were noted. The duodenum was normal. The esophagus was normal. The GE junction was at 35cm. Lab Data Lab results reviewed: Yes I reviewed the patient's lab results. Labs: Laboratory Tests Range/Units 09/24/21 09/24/21 13:46 13:46 WBC (4.4-10.8) 10^3/uL 8.73 RBC (3.93-5.22) 10^6/uL 4.56 Hgb (11.2-15.7) g/dL 13.9 Hct (36.0-46.0) % 40.0 MCV (80-95) fL 88 MCH (27.0-33.0) pg 30.5 MCHC (32.0-36.0) % 34.8 RDW (11.7-14.6) % 12.8 Plt Count (130-400) 10^3/uL 316 MPV (8.0-11.0) fL 11.1 H Immature Gran % 0.2 Neutrophils % 62.8 Lymphocytes % 25.7 Monocytes % 8.7 Eosinophils % 1.7 Basophils % 0.9 Nucleated RBC % (0.0-0.3) % 0.0 Absolute Neutrophils (1.2-6.7) 10^3/uL 5.48 Absolute Lymphocytes (1.2-3.4) 10^3/uL 2.24 Absolute Monocytes (0.1-0.8) 10^3/uL 0.76 Absolute Eosinophils (0.0-0.7) 10^3/uL 0.15 Absolute Basophils (0.0-0.2) 10^3/uL 0.08 Sodium (136-145) mmol/L 139 Potassium (3.5-5.1) mmol/L 3.4 L Chloride (98-107) mmol/L 102 Carbon Dioxide (21.0-32.0) mmol/L 26.5 Anion Gap (3-11) mmol/L 10.5 BUN (7-18) mg/dL 20 H Creatinine (0.55-1.02) mg/dL 1.1 H Estimated GFR/1.73 m2 (mL/min/1.73m2) 47.67 Glucose (74-106) mg/dL 112 H Calcium (8.5-10.1) mg/dL 9.5 Total Bilirubin (0.2-1.0) mg/dL 0.7 AST (15-37) U/L 13 L ALT (14-59) U/L 18 Alkaline Phosphatase (46-116) U/L 72 Total Protein (6.4-8.2) g/dL 7.3 Albumin (3.4-5.0) g/dL 3.9 Lipase (73-393) U/L 82 HPI General Mode of arrival: ambulatory . Date/Time Provider Initiated Documentation: 09/24/21 13:20 . Limitations to Documentation: no limitations . Information obtained by: patient . HPI Narrative: 81yo female with history of GERD, presents with chief complaint of nausea. Patient notes that whenever she attempts to eat something she feels nauseous. Symptoms are severe. She notes she is worried that she is not getting enough nutritional intake. She has no associated vomiting. She has no associated pain in her abdomen or throat. She denies difficulty swallowing. Of note, patient was seen here in the emergency department on 09/21/2021 for same. She was prescribed Carafate and Zofran. She failed Carafate prescription has been taking but unfortunately pharmacy would not fill her Zofran prescription citing insurance approval needed. Related Data Home Medications Medication Instructions Recorded Confirmed ascorbic acid (vitamin C) 500 mg 500 mg PO DAILY 06/18/12 09/28/21 tablet kflpdor-O8-lfo-Ck-npqap-efpa-boron 1 ea PO DAILY 06/18/12 09/28/21 600 mg-200 unit-40 mg-7.5 mg tablet vitamin B complex 1 ea PO DAILY 06/18/12 09/28/21 Lactobacillus comb 1 ea PO DAILY 10/24/14 09/28/21 no.4-XEP-[id number] 300 million cell-250 mg capsule (Probiotic and Acidophilus) cholecalciferol (vitamin D3) 25 1,000 unit PO DAILY 01/25/17 09/28/21 mcg (1,000 unit) tablet aspirin 81 mg tablet,delayed 81 mg PO Q48H 07/09/18 09/28/21 release (Adult Low Dose Aspirin) nystatin 100,000 unit/gram topical 1 applic topical BID PRN Rash 12/19/18 09/28/21 powder abdominal folds. #60 grams fluticasone propionate 50 50 mcg NS DAILY #1 unit 03/30/20 09/28/21 mcg/actuation nasal spray,suspension atorvastatin 10 mg tablet 10 mg PO DAILY #90 tabs 11/18/20 09/28/21 fluticasone propionate 110 1 puff inhalation BID #36 grams 02/09/21 09/28/21 mcg/actuation HFA aerosol inhaler (Flovent HFA) meclizine 25 mg tablet 25 mg PO DAILY PRN vertigo #20 tabs 04/07/21 09/28/21 hydrochlorothiazide 25 mg tablet 25 mg PO DAILY #90 tabs 04/13/21 09/28/21 blood sugar diagnostic #100 ea 07/06/21 09/28/21 lancets 33 gauge (OneTouch Delica #50 ea 07/06/21 09/28/21 Lancets) losartan 100 mg tablet 100 mg PO DAILY #90 tab-caps 09/21/21 09/28/21 sucralfate 1 gram tablet (Carafate) 1 gm PO QACHS #14 tabs 09/21/21 09/28/21 ondansetron 4 mg disintegrating 4 mg PO TID PRN nausea and 09/24/21 09/28/21 tablet vomiting #10 tabs pantoprazole 40 mg tablet,delayed 40 mg PO DAILY #90 tabs 09/28/21 09/28/21 release Previous Rx's Medication Instructions Recorded nystatin 100,000 unit/gram topical 1 applic topical BID PRN Rash 12/19/18 powder abdominal folds. #60 grams fluticasone propionate 50 50 mcg NS DAILY #1 unit 03/30/20 mcg/actuation nasal spray,suspension atorvastatin 10 mg tablet 10 mg PO DAILY #90 tabs 11/18/20 fluticasone propionate 110 1 puff inhalation BID #36 grams 02/09/21 mcg/actuation HFA aerosol inhaler (Flovent HFA) meclizine 25 mg tablet 25 mg PO DAILY PRN vertigo #20 tabs 04/07/21 hydrochlorothiazide 25 mg tablet 25 mg PO DAILY #90 tabs 04/13/21 blood sugar diagnostic #100 ea 07/06/21 lancets 33 gauge (OneTouch Delica #50 ea 07/06/21 Lancets) losartan 100 mg tablet 100 mg PO DAILY #90 tab-caps 09/21/21 sucralfate 1 gram tablet (Carafate) 1 gm PO QACHS #14 tabs 09/21/21 ondansetron 4 mg disintegrating 4 mg PO TID PRN nausea and 09/24/21 tablet vomiting #10 tabs pantoprazole 40 mg tablet,delayed 40 mg PO DAILY #90 tabs 09/28/21 release Allergies Allergy/AdvReac Type Severity Reaction Status Date / Time mushroom Allergy Severe Anaphylaxsi Verified 09/28/21 14:49 s codeine Allergy Unknown as child Verified 09/28/21 14:49 Sulfa (Sulfonamide Allergy Unknown as child Verified 09/28/21 14:49 Antibiotics) lisinopril AdvReac Mild cough Verified 09/28/21 14:49 simvastatin AdvReac Mild 01/22/2017 Verified 09/28/21 14:49 joint pain General Stated Complaint: Abd Prob LACEY: 3 Review of Systems All systems reviewed & are unremarkable except as noted in HPI and below Constitutional Constitutional: Denies fever(s) Gastrointestinal Gastrointestinal: Reports as per HPI PFSH All Active Problems Indigestion (Acute) Belching (Acute) Dyspepsia (Acute) Nausea (Acute) Postprandial nausea (Acute) Hypokalemia (Acute) ALBARRAN (dyspnea on exertion) (Acute) Benign paroxysmal positional vertigo of right ear (Acute 06/22/15) Essential hypertension (Acute 07/06/12) FRS 25% Osteoarthrosis (Acute 10/22/13) in Knee per Dr. Neville at [facility] Osteopenia (Acute 01/09/12) DEXA 12/2011 NL except forearm T -1.3 Vertigo (Acute 05/08/15) Diabetes mellitus (Chronic) Eosinophilic gastritis (Chronic) Insomnia (Chronic) PTSD (post-traumatic stress disorder) (Chronic) Abdominal bloating (Acute) 08/30/18 [facility] Grief (Acute) Low back pain (Acute) Internal hemorrhoids (Acute) Hypertension (Chronic) Impaired fasting glucose (Acute 07/19/11) Hyperlipidemia (Acute 07/06/12) PCEq 15%; baseline LDL 149 Gastroesophageal reflux disease (Acute 07/19/11) Gallstone pancreatitis (Acute 10/26/12) lap cholecystectomy 09/2012 Dr Cox Esophageal reflux (Acute 07/19/11) Diabetes type 2, controlled (Acute 06/10/15) Asthma (Acute 12/03/12) intermittent Pancreatitis (Chronic 10/09/12) irst episode of pancreatitis of uncertain etiology. Benign hypertension (Chronic) Hyperlipidemia (Chronic) June 2012-Total cholesterol 232; triglycerides 147; LDL 148 and HDL 52--todays labs pending. Asthma (Chronic) Intermittent asthma. Diverticulitis (Acute 09/16/14) Osteoarthritis (Chronic) Esophageal reflux (Chronic) Chronic rhinitis (Chronic) Impaired fasting glucose (Chronic) Osteopenia (Chronic) H/O surgical procedure (Chronic) a. appendectomy as a child b. 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 Gallstone pancreatitis GERD (gastroesophageal reflux disease) Hyperlipidemia Obesity Stage I obesity with a BMI of 31 .0 Skin lesions Surgical History Cholecystectomy (10/11/12) EGD - MAC (08/01/17) History of appendectomy Family History Brother Heart disease pacemaker Neoplasm Kidney Social History Smoking/Tobacco Use Status: Former Tobacco Use Smoking risk assessment performed?: Yes Alcohol Intake: current Alcohol Intake frequency: holidays/special occasions only Drug use: Never Substance use type: does not use Household members: none Number of Children: 0 Current gender identity: female What type of physical activity do you participate in: walking and other Details: Alexis Chi 1x/week Duration: 30-45 minutes/day Frequency: 3-4 times per week Do you feel safe at home: Yes Do you feel safe in your relationship?: Yes Exam Const General: cooperative, no acute distress and well developed HENMT Mouth: moist mucous membranes Throat: posterior oropharynx normal Eyes Conjunctivae: normal conjunctivae Sclera: normal sclerae Neck Neck: trachea midline and supple Resp Auscultation: clear to auscultation bilaterally, no rales, no rhonchi and no wheezes Cardio Rate: regular rate and not tachycardic Rhythm: regular rhythm GI Palpation: soft, not firm, no guarding, no masses, not rigid and nontender Skin General skin exam: no rashes or lesions noted Neuro General: patient alert, patient awake and tone normal Psych Appearance: grossly normal Mental Status: mental status grossly normal Speech and Movement: speech and movement normal Course Vital Signs Vital signs: Vital Signs Temperature 36.8 C 09/24/21 12:53 Pulse 80 09/24/21 12:53 Respiratory Rate 18 09/24/21 12:53 Blood Pressure 158/86 H 09/24/21 12:53 Pulse Oximetry 99 09/24/21 12:53 Temperature 36.8 C 09/24/21 12:53 Temperature Source Temporal Artery Scan 09/24/21 12:53 Pulse 80 09/24/21 12:53 Respiratory Rate 18 09/24/21 12:53 Respiratory Effort Non-Labored 09/24/21 14:12 Blood Pressure 158/86 H 09/24/21 12:53 Blood Pressure Position Supine 09/24/21 12:53 Pulse Oximetry 99 09/24/21 12:53 Oxygen Delivery Method Room Air 09/24/21 12:53 Oxygen Flow Rate 0 09/24/21 12:53 Pain Level 0 09/24/21 12:53 Lab/Test Results Lab/Test Results: Laboratory Tests Range/Units 09/24/21 09/24/21 13:46 13:46 WBC (4.4-10.8) 10^3/uL 8.73 RBC (3.93-5.22) 10^6/uL 4.56 Hgb (11.2-15.7) g/dL 13.9 Hct (36.0-46.0) % 40.0 MCV (80-95) fL 88 MCH (27.0-33.0) pg 30.5 MCHC (32.0-36.0) % 34.8 RDW (11.7-14.6) % 12.8 Plt Count (130-400) 10^3/uL 316 MPV (8.0-11.0) fL 11.1 H Immature Gran % 0.2 Neutrophils % 62.8 Lymphocytes % 25.7 Monocytes % 8.7 Eosinophils % 1.7 Basophils % 0.9 Nucleated RBC % (0.0-0.3) % 0.0 Absolute Neutrophils (1.2-6.7) 10^3/uL 5.48 Absolute Lymphocytes (1.2-3.4) 10^3/uL 2.24 Absolute Monocytes (0.1-0.8) 10^3/uL 0.76 Absolute Eosinophils (0.0-0.7) 10^3/uL 0.15 Absolute Basophils (0.0-0.2) 10^3/uL 0.08 Sodium (136-145) mmol/L 139 Potassium (3.5-5.1) mmol/L 3.4 L Chloride (98-107) mmol/L 102 Carbon Dioxide (21.0-32.0) mmol/L 26.5 Anion Gap (3-11) mmol/L 10.5 BUN (7-18) mg/dL 20 H Creatinine (0.55-1.02) mg/dL 1.1 H Estimated GFR/1.73 m2 (mL/min/1.73m2) 47.67 Glucose (74-106) mg/dL 112 H Calcium (8.5-10.1) mg/dL 9.5 Total Bilirubin (0.2-1.0) mg/dL 0.7 AST (15-37) U/L 13 L ALT (14-59) U/L 18 Alkaline Phosphatase (46-116) U/L 72 Total Protein (6.4-8.2) g/dL 7.3 Albumin (3.4-5.0) g/dL 3.9 Lipase (73-393) U/L 82
[2021-09-24] MEDS: Potassium Chloride 20 MEQ TABCR PO (16:01)
[2021-09-24] MEDS: Ondansetron O.D.T. 4 MG TABEF, 3 TABS/BTL PO (16:19)
[2021-09-24 16:35] LABS: Bilirubin Negative (Negative); Blood Negative (Negative); Clarity Clear (Clear); Glucose Negative (Negative); Ketones 15 mg/dL (Negative); Leukocyte Esterase Negative (Negative); Nitrite Negative (Negative); Urobilinogen 0.2 EU/dL (Up TO 0.2); pH 5.5 (5-8)
== END 2021-09-24 16:30 | disposition home or self-care (01) ==
PROVIDERS: Emergency Provider Student in an Organized Health Care Education/Training Program; PCP Nurse Practitioner
DX: R11.0 Nausea (principal); E87.6 Hypokalemia
CPT/HCPCS: 36415; 80053; 83690; 96361; 96365; 96375; 99284; 81003; 85025; 99283; J2405

== ENCOUNTER 2021-10-11 03:35 | Outpatient (CLI) | payer MEDICARE, OTHER, SELFPAY ==
[2021-10-11 08:58] LABS: Hemoglobin A1C 6.5 % (<5.7)
[2021-10-11 09:11] LABS: ALT 19 U/L (14-59); AST 14 U/L (15-37); Albumin 3.6 g/dL (3.4-5.0); Alkaline Phosphatase 69 U/L (46-116); Anion Gap 9.1 mmol/L (3-11); BUN 13 mg/dL (7-18); Bilirubin, Total 0.9 mg/dL (0.2-1.0); CO2 28.9 mmol/L (21.0-32.0); CREATININE 1.2 mg/dL (0.55-1.02); Calculated LDL 54 mg/dL (<100); Chloride 104 mmol/L (98-107); Cholesterol 130 mg/dL (<200); Estimated GFR 43.12 (mL/min/1.73m2); Glucose 137 mg/dL (74-106); HDL Cholesterol 50 mg/dL (40-60); Sodium 142 mmol/L (136-145); Total Protein 6.8 g/dL (6.4-8.2); Triglyceride 132 mg/dL (<150)
[2021-10-11 09:19] LABS: Potassium 2.8 mmol/L (3.5-5.1)
[2021-10-11 20:48] LABS: Source Nasal/Nares
[2021-10-12 06:07] LABS: COVID-19 PCR Negative (Negative)
== END 2021-10-11 03:36 | disposition home or self-care (01) ==
LOC: LBO 03:35 → LBN 20:20
PROVIDERS: Surgery; PCP Nurse Practitioner; Referring Provider Nurse Practitioner; Visit Provider Nurse Practitioner
DX: E11.9 Type 2 diabetes mellitus without complications (principal); E78.5 Hyperlipidemia, unspecified; I10 Essential (primary) hypertension; Z20.822 Contact with and (suspected) exposure to COVID-19; Z01.818 Encounter for other preprocedural examination; R11.2 Nausea with vomiting, unspecified; K52.81 Eosinophilic gastritis or gastroenteritis; E86.0 Dehydration
CPT/HCPCS: 36415; 80053; 80061; 87635; 83036

== ENCOUNTER 2021-10-11 07:35 | Outpatient (CLI) | payer MEDICARE, OTHER, SELFPAY ==
--- OUTSIDE RECORDS SUMMARY | 2021-10-24 07:38 | XMS_ITS | Encounter Summary ---
:1940 Author Organization [facility] [place] [address] Care Team Providers Name Role Phone Mar Viera APRN Primary Care Provider Encounter Details Date Type Department Care Team Description 03/07/2019 Office Visit Gastroenterology at [facility] Sharifa Oconnor, Abdominal bloating [facility] [place] [address] [facility] [phone] [facility] [place] [address] Social History Tobacco Use Types Packs/Day Years Used Date Never Smoker Smokeless Tobacco: Never Used Alcohol Use Standard Drinks/Week Comments Yes 4 (1 standard drink = 0.6 oz pure alcoho l) Sex Assigned at Date Recorded Not on file documented as of this encounter Last Filed Vital Signs Vital Sign Reading Time Taken Comments Blood Pressure 170/96 03/07/2019 10:08 AM EST Pulse 92 03/07/2019 10:08 AM EST Temperature - - Respiratory Rate - - Oxygen Saturation - - Inhaled Oxygen Concentration - - Weight 87.4 kg (192 lb 9.6 oz) 03/07/2019 10:08 AM EST Height 167.6 cm (5' 6) 03/07/2019 10:08 AM EST Body Mass Index 31.09 03/07/2019 10:08 AM EST documented in this encounter Progress Notes Sharifa Oconnor MD - 03/07/2019 11:00 AM EST [facility] Division of Gastroenterology and Hepatology Outpatient Progress Note ID: 77-year-old woman with HTN, HLD, and asthma, followed in GI clinic for dysphagia, GERD, and eosinophilic gastritis. Interval events: - last seen in GI clinic in August; symptoms were well controlled at that time on protonix - never tried bentyl because she was nervous about the side effects - no dysphagia, no GERD symptoms since starting protonix - continues to have some gas at night time - rare hamburger doesn't cause dysphagia, but well cooked hamburger can cause problems so she just eats rare hamburger meat - weight is stable, appetite stable, no signs of GI blood loss, no N/V, no fevers or chills, no other constitutional symptoms Review of Systems: Constitutional: No weight loss HEENT: No visual changes, URI symptoms Cardio: No chest pain/palpitations Resp: No cough, no SOB Hem/Lymph: no new lumps or bumps on body GI: see HPI : no dysuria Skin: no new rashes Musculoskeletal: no new joint pains Neuro: no new numbness, weakness in extremities All other systems negative except as above in HPI No past medical history on file. Past Surgical History: Procedure Laterality Date ??? PRO COLONOSCOPY, DIAGNOSTIC N/A 12/01/2015 COLONOSCOPY, DIAGNOSTIC performed by Stefany Hartmann MD at [facility] ENDOSCOPY ??? PRO COLONOSCOPY, REMV LESN, SNARE N/A 12/01/2015 COLONOSCOPY, POLYPECTOMY, REMOVAL LESION BY SNARE performed by Stefany Hartmann MD at [facility] ENDOSCOPY Social History: reports that she has never smoked. She has never used smokeless tobacco. She reportsthat she drinks about 4.0 standard drinks of alcohol per week. She reports that she does not use drugs. Family History: Father of colon cancer, brother with malignant polyps. She had been undergoing q3 year colonoscopies because of this history, last in 2015, but with no further plans for surveillance. No other family history of GI malignancy. Current Outpatient Medications Medication Sig Dispense Refill ??? dicyclomine (BENTYL) 10 mg Capsule Take 1 capsule by mouth 4 times daily as needed. 90 capsule 3 ??? pantoprazole (PROTONIX) 40 mg Tablet, Delayed Release (E.C.) Take 1 tablet by mouth daily. 90 tablet 3 ??? meclizine (ANTIVERT) 25 mg Tablet Take 25 mg by mouth as needed. ??? albuterol sulfate (VENTOLIN INHL) Inhale into the lungs. ??? atorvastatin (LIPITOR) 10 mg Tablet Take 10 mg by mouth daily. ??? aspirin 81 mg Tablet, Delayed Release (E.C.) Take 81 mg by mouth every other day. ??? Ranitidine HCl (ZANTAC) 300 mg Capsule Take by mouth 2 times daily. ??? ascorbic acid, vitamin C, (VITAMIN C) 500 mg Tablet Take 500 mg by mouth daily. ??? b complex vitamins Capsule Take 1 capsule by mouth daily. ??? calcium-vitamin D3 600 mg calcium- 400 unit Tablet Take by mouth. ??? lactobacillus rhamnosus, GG, (CULTURELLE) 10 billion cell Capsule Take 1 capsule by mouth daily. ??? losartan (COZAAR) 25 mg Tablet Take 100 mg by mouth daily. ??? DIAZEPAM (VALIUM ORAL) Take by mouth. ??? hydrochlorothiazide (HYDRODIURIL) 25 mg Tablet Take 12.5 mg by mouth daily. ??? fluticasone (FLOVENT) 110 mcg/actuation Aerosol Inhale 1 puff into the lungs 2 times daily. ??? fluticasone (FLONASE) 50 mcg/actuation [place], Suspension 1 spray daily. No current facility-administered medications for this visit. Allergies Allergen Reactions ??? Codeine ??? Simvastatin Muscle ach ??? Sulfa (Sulfonamide Antibiotics) Physical Examination: Ht 167.6 cm (5' 6) Wt 87.4 kg (192 lb 9.6 oz) BMI 31.09 kg/m?? General: NAD HEENT: NC/AT, PERRL, anicteric sclera, MMM, no erythema or exudate Neck: soft, supple, no cervical LAD Chest: CTAB CVS:RRR, normal s1/s2, No MRG ABD: soft, NABS, NT/ND, No hepatosplenomegaly appreciated Rectal: Deferred Extremities: Warm and well perfused. No clubbing, cynanosis or edema Skin:No rash or lesion Neuro: AAOx3, Grossly non-focal. Labs: Reviewed in EDH/Scan Docs Lab Results Component Value Date WBC 10.2 (H) 03/12/2018 HGB 13.0 03/12/2018 HCT 38.5 03/12/2018 MCV 89.7 03/12/2018 PLATELET 311 03/12/2018 Chemistry No results found for: NA, K, CL, CO2, BUN, CREATININE No results found for: CALCIUM, ALKPHOS, AST, ALT, BILITOT No results found for: ALT, AST, GGT, ALKPHOS, BILITOT Past Endoscopy: EGD 08/01/17: [facility] Findings: severe inflammation throughout the stomach. No ulcerations were noted. The duodenum was normal. The esophagus was normal. The GE junction was at 35 cm. 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 ?- One 4 mm polyp in the sigmoid ?colon. Resected and retrieved. ?- One 5 mm polyp in the sigmoid ?colon. Resected and??retrieved. ?- Diverticulosis in the sigmoid ?colon, in the descending colon and in ?the ascending colon. Additional Testing: Reviewed available labs, imaging and endoscopy results in EDH/CIS as well as Scan Docs tab. IMPRESSION: 77-year-old woman with HTN, HLD, asthma, and GERD, here today for follow up. Her symptoms of dysphagia and GERD have resolved - recommend continuing PPI for now. If her symptoms were to recur, recommend a repeat EGD given her eosinophilic gastritis on last EGD (no esophageal biopsies were taken at that time), and hx of asthma and dysphagia. At this time she declines any further endoscopies, but understands that would be our recommendation. For her elevated BP, she is currently asymptomatic. Will prescribe a short course of Norvasc, and will contact PCP's office this afternoon for close follow up. She knows to go to the ED if she developsheadache, chest pain, lightheadedness. RECOMMENDATIONS: For GERD: - continue protonix - follow up with PCP For elevated BP: - will contact PCP's office today for close follow up - 5 days of norvasc, to be followed by PCP - knows to go to the ED if she develops headache, chest pain Patient will follow up with her PCP going forward. If she develops new/worsening GI symptoms, she will return to GI clinic. This patient was discussed with the attending, Dr. Templeton, at the time of her visit. Sharifa Oconnor MD [place] [address] P: [phone] F: [phone] CC Mar Viera APRN [address] [place] [address] ADDENDUM: PCP contacted this afternoon in regards to her high blood pressure, prior to this note being signed.She will be seen in their office tomorrow. documented in this encounter Plan of Treatment Upcoming Encounters Date Type Specialty Care Team Description 12/17/2021 Office Visit Dermatology Orlando Borrero MD [address] [facility] [place], [place] [address] (Wo rk) documented as of this encounter Visit Diagnoses Diagnosis Abdominal bloating Flatulence, eructation, and gas pain documented in this encounter Care Teams Edge Brusher Relationship Specialty Start Date End Date Mar Viera APRN PCP - General Internal Medicine 01/25/17 [address] [place] [address] documented as of this encounter
--- OUTSIDE RECORDS SUMMARY | 2021-10-24 07:38 | XMS_ITS | Encounter Summary ---
:[address] [facility] Address [address] [place] [address] Care Team Providers Name Role Phone Unknown, Provider Primary Care Provider Encounter Details Date Type Department Care Team Description 09/01/2005 Results Only [facility] - Lilliana Soriano son, Gertrude L, CORE ANALYST conversion [facility] [address] [place] [phone] (Wo rk) Social History Tobacco Use Types Packs/Day Years Used Date Never Assessed Sex Assigned at Date Recorded Not on file documented as of this encounter Plan of Treatment Not on filedocumented as of this encounter Procedures Procedure Name Priority Date/Time Associated Diagnosis Comme nts CYTOPATHOLOGY Routine 09/01/2005 0:00 EDT Results for this procedure are i n the results section . documented in this encounter Results CYTOPATHOLOGY (09/01/2005 0:00 EDT) Pathology Report: CYTOPATHOLOGY REPORT [facility] Reports generated via electronic interface contain everett ginal data; however they are lacking the format of the original re port. Caution should be taken when reading/interpreting unfo rmatted reports. Name: ? JOANIE LAROSE ? Accession #: ? [id number] : ? 1940 (Age: 64) ??F ?Collect Date: ? 08/18 Location: ? [facility] ? Receive Date : ? 09/06/2005 Provider: ?GERTRUDE GUEVARA CORE ANALYST Copy to: ? Specimen/Source: ? ThinPrep Pap Test, Cervix, processed on [employer] ThinPrep Imaging System, with manual evaluation Last Menstrual Period: ? 1989 Other: ? Additional clinical information: Cervical polyp 1cm HPVA - HPV testing requested if ASC-US on the current ThinPrep Pap test. ? SPECIMEN ADEQUACY ? Satisfactory for Evaluation - transformation zone component present GENERAL CATEGORIZATION ? Negative for Intraepithelial Lesion or Malignan cy ? Document reviewed and electronically signed by: ? SEVERO Haynse(ASCP)(IAC) ? Report Date: ??09/07/2005 16:26 End of Report Specimen Performing Organization Address City/State/ZIP Code Phon e Number [facility] [address] [place] [address] SERVICES [facility] [address] [place] [address] documented in this encounter Visit Diagnoses Not on filedocumented in this encounter Care Teams Pump Servicer Supervisor Relationship Specialty Start Date End Date Unknown, Provider, PCP - General 12/07/09 07/27/16 documented as of this encounter
--- OUTSIDE RECORDS SUMMARY | 2021-10-24 07:38 | XMS_ITS | Encounter Summary ---
:1940 Author Organization [facility] Address [address] [place] [address] Care Team Providers Name Role Phone Unavailable Primary Care Provider Unavailable Encounter Details Date Type Department Care Team Description 06/12/2003 Results Only [facility] - Lilliana Soriano son, Gertrude Givens, HOTEL MANAGER conversion [address] [place] [phone] (Wo rk) Social History Tobacco Use Types Packs/Day Years Used Date Never Assessed Sex Assigned at Date Recorded Not on file documented as of this encounter Plan of Treatment Not on filedocumented as of this encounter Procedures Procedure Name Priority Date/Time Associated Diagnosis Comme nts CYTOPATHOLOGY Routine 06/12/2003 0:00 EST Results for this procedure are i n the results section . documented in this encounter Results CYTOPATHOLOGY (06/12/2003 0:00 EST) Pathology Report: CYTOPATHOLOGY REPORT [facility] Reports generated via electronic interface contain everett ginal data; however they are lacking the format of the original re port. Caution should be taken when reading/interpreting unfo rmatted reports. Name: ? JOANIE LAROSE ? Accession #: ? [id number] : ? 1940 (Age: 62) ??F ?Collect Date: ? 05/19 Location: ? [facility] ? Receive Date : ? 06/17/2003 Provider: ?GERTRUDE GUEVARA HOTEL MANAGER Copy to: ? Specimen/Source: ?ThinPrep Pap Test, Cervix/ Endocervix Last Menstrual Period: ? 1991 ? SPECIMEN ADEQUACY ? Satisfactory for Evaluation - transformation zone component present GENERAL CATEGORIZATION ? Negative for Intraepithelial Lesion or Malignan cy ? Document reviewed and electronically signed by: ? SEVERO Bauer(ASCP) ? Report Date: ??06/20/2003 10:01 End of Report Specimen Performing Organization Address City/State/ZIP Code Phon e Number [facility] [address] [place] [address] SERVICES [facility] [address] [place] [address] documented in this encounter Visit Diagnoses Not on filedocumented in this encounter
--- OUTSIDE RECORDS SUMMARY | 2021-10-24 07:38 | XMS_ITS | Encounter Summary ---
:1940 Author Organization [facility] Address [address] [place] [address] Care Team Providers Name Role Phone Unavailable Primary Care Provider Unavailable Encounter Details Date Type Department Care Team Description 11/27/2009 Results Only [facility] Rita Guevara, POLE FRAMER Laboratory Services - [address] [address] [place] [address] [phone] Social History Tobacco Use Types Packs/Day Years Used Date Never Assessed Sex Assigned at Date Recorded Not on file documented as of this encounter Plan of Treatment Not on filedocumented as of this encounter Procedures Procedure Name Priority Date/Time Associated Diagnosis Comme [facility] CYTOPATHOLOGY Routine 11/27/2009 0:00 EDT Results for this procedure are i n the results section . documented in this encounter Results CYTOPATHOLOGY (11/27/2009 0:00 EDT) Pathology Report: CYTOPATHOLOGY REPORT ? [facility] Reports generated via electr onic interface contain original data; ? however they are lacking the format of the original report. ? Caution should be taken when reading/interpreting unformatted reports. ? Name: ? JOANIE LAROSE ? Accession #: ? [id number] ? : ? 1940 (Age: 69) ??F ?Collect Date: ? 11/27/2009 ? Location: ? [facility] ? R eceive Date: ? 11/30/2009 ? Provider: KURT L GUEVARA POLE FRAMER ? Copy to: ? Final Report ? SPECIMEN ADEQUACY ? Satisfactory for Eval uation ? - transformation zone compon ent present ? GENERAL CATEGORIZATION ? Negative for Intraepi thelial Lesion or Malignancy ? Last Menstural Period: 1992 ? Other: Additional clinical i nformation: cervical polpy present ? HPVDX - HPV testing requeste d regardless of diagnosis on current ThinPrep Pap ?? test. ? Specimen/Source: ??Pap Test, Cervix, ThinPrep Imaging System with manual ? evaluation ? Document reviewed and electr onically signed by: ? Stan Rivers, [place] (ASCP) ? Report ??Date: 14/ 2010 13:41 ? HPV with Pap Test ? Date Ordered: ? 0 12/01/2009 ? Status: ?? Signed Out ?Date Complete: ? 12/04/2009 ? By: ??User Misys ? Date Reported: ? 12/04/2009 ? Interpretation ? RESULT: Negative for HPV typ es 16, 18, 31, 33, 35, 39, 45, 51, ??with ? dysplasia and some cervical cancers. ? Comments ? Document reviewed and electr onically signed by: ? User Misys ? Report date: 12/04/06 01 ? By the signature above, the attending physician certifies that he/she has ? personally conducted a gross and/or microscopic examination of the described ? specimens and rendered or co nfirmed the above diagnosis. ? End of Report ? Specimen Performing Organization Address City/State/ZIP Code Phon e Number [facility] [address] [place] [address] SERVICES [facility] [address] [place] [address] documented in this encounter Visit Diagnoses Not on filedocumented in this encounter
--- OUTSIDE RECORDS SUMMARY | 2021-10-24 07:38 | XMS_ITS | Encounter Summary ---
:1940 Author Organization [facility] [place] [address] Care Team Providers Name Role Phone Mar Viera APRN Primary Care Provider Encounter Details Date Type Department Care Team Description 04/03/2018 Refill Gastroenterology at [facility] Hailee Pedro Gastritis, [facility] [place] [address] Social History Tobacco Use Types Packs/Day Years Used Date Never Smoker Smokeless Tobacco: Never Used Alcohol Use Standard Drinks/Week Comments Yes 4 (1 standard drink = 0.6 oz pure alcoho l) Sex Assigned at Date Recorded Not on file documented as of this encounter Miscellaneous Notes Addendum Note - Carolyn Gonsales RN - 04/09/2018 11:36 AM EST Addended by: CAROLYN GONSALES on: 04/09/2018 11:36 AM Modules accepted: Orders Telephone Encounter - Carolyn Gonsales RN - 04/09/2018 11:26 AM EST The Prescription Advantage Program (discounted bass prices for certain drugs here at Pharmacy) has pantoprazole 40mg on it and 90 tabs would be $14. ??Unfortunately pantoprazole 20mg is not on thisprogram and is expensive through our pharmacy. ??There is not a special wang for 20mg bid dosing. ??OCM might be able to help pay for it for the patient. ??Or it might be worth checking somewhere suchas [facility] to see if it's maybe on their list of discounted drugs. ?? Telephone Encounter - Carolyn Gonsales RN - 04/05/2018 3:[address] Oconnor: I sent in a prescription for Protonix- she can stop omeprazole and try and Protonix instead, especially since omeprazole initially worked for her. I can't get through to her on the phone, will try again tomorrow. I'm also happy to see her again in clinic 04/12 or 04/19. Insurance still not paying for ppi bid dosing. Will d/w provider. Telephone Encounter - Hailee Pedro - 04/03/2018 4:57 PM EST Shelia sawyer [facility] called. Dr. Oconnor called in prescription for pantoprazole 20mg X2 a day and insurance wont cover it. Asking if it can be written for 40mg once a day. 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
--- OUTSIDE RECORDS SUMMARY | 2021-10-24 07:38 | XMS_ITS | Encounter Summary ---
:1940 Author Organization [facility] [place] [address] Care Team Providers Name Role Phone Mar Viera APRN Primary Care Provider Reason for Visit Reason Onset Date Comments Medication Refill 06/05/2018 Encounter Details Date Type Department Care Team Description 06/05/2018 Refill Gastroenterology at [facility] Sharifa Oconnor, Gastritis, [facility] [place] [address] [facility] [phone] GASTROENTEROLOGY [place], [place] [address] Social History Tobacco Use Types Packs/Day Years Used Date Never Smoker Smokeless Tobacco: Never Used Alcohol Use Standard Drinks/Week Comments Yes 4 (1 standard drink = 0.6 oz pure alcoho l) Sex Assigned at Date Recorded Not on file documented as of this encounter Plan of Treatment Upcoming Encounters Date Type Specialty Care Team Description 12/17/2021 Office Visit Dermatology Orlando Borrero MD [address] [address] DERMATOLOGY [place], [place] [address] (Wo rk) documented as of this encounter Visit Diagnoses Diagnosis Gastritis, eosinophilic Eosinophilic gastritis, 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
--- OUTSIDE RECORDS SUMMARY | 2021-10-24 07:38 | XMS_ITS | Encounter Summary ---
:1940 Author Organization [facility] [place] [address] Care Team Providers Name Role Phone Mar Viera APRN Primary Care Provider Encounter Details Date Type Department Care Team Description 04/03/2018 Orders Only Gastroenterology at [facility] [place] [phone] GASTROENTEROLOGY DEPT [place], [place] [address] (Wo rk) Social History Tobacco Use Types [...] Office Visit Dermatology Orlando Borrero MD [address] [facility] [address] DERMATOLOGY [place], [place] [address] (Wo rk) documented as of this encounter Visit Diagnoses Not on filedocumented in this encounter Care Teams Combat Systems Engineer Relationship Specialty Start Date End Date Mar Viera APRN PCP - General Internal Medicine 01/25/[address] [place] [id number] documented as of this encounter
--- OUTSIDE RECORDS SUMMARY | 2021-10-24 07:38 | XMS_ITS | Encounter Summary ---
:1940 Author Organization [facility] Address [address] [place] [address] Care Team Providers Name Role Phone Mar Viera PATROL SUPERVISOR Primary Care Provider Encounter Details Date Type Department Care Team Description 10/14/[address] [facility] Reid Mason Enc ounter for other Pathology & MD general examination Laboratory Medicine - [address] [place] [address] [address] [facility] [address] [place], [place] [address] Social History Tobacco Use Types Packs/Day Years Used Date Never Assessed Sex Assigned at Date Recorded Not on file documented as of this encounter Plan of Treatment Not on filedocumented as of this encounter Procedures Procedure Name Priority Date/Time Associated Diagnosis Comme nts SURGICAL PATHOLOGY Today 10/14/2021 10:55 Encounter for othe r Results for this EDT general examination procedur e are in the results section. documented in this encounter Results SURGICAL PATHOLOGY (10/14/2021 10:55 EDT) Note to Patient The following [facility] MED[facility] pathology results have CENTER been interpreted by LABORATORY your pathologist and SERVICES may be available to you before your health provider has had the opportunity to review them. Please allow time for your provider to receive these results and explore management options, if applicable. Final Diagnosis A. STOMACH, ANTRUM, BIOPSY: [facility] MEDICA L - Gastric antral mucosa with reactive (chemical) gastr opathy. CENTER - Negative for Helicobacter pylori microorganism s on H&E stained sections. LABORATORY SERVICES B. STOMACH, BODY, BIOPSY: - Gastric body mucosa with no specific pathologic feat ures. C. GASTROESOPHAGEAL JUNCTION, POLYP, BIOPSY: - Benign hyperplastic polyp. - Background fundic type mucosa with no specific patho logic features. Attestation There was significant [facility] MEDICAL Electr onically resident/fellow CENTER signed by Jose Raul ricardo, involvement in the LABORATORY MD Nasreen on diagnostic evaluation SERVICES 10/19/19 22 at 1827 of this case. By the signature below, the attending physician certifies that they have personally conducted a gross and/or microscopic examination of the described specimens and rendered or confirmed the above diagnosis. Clinical History Esophagitis; R/O H. [facility] MEDICAL Pylori; R/O malignancy CENTER (endometrial polyp) LABORATORY SERVICES Gross Description A. [facility] Received in formalin evelio d with proper patient identification (initials B, B) and antrum Bx are 2 fragments of high soft tissue (each averaging 0.2 x 0.2 x 0.2 cm). The specimen is entirely submitted in A1. CENTER LABORATORY B. SERVICES Received in formalin evelio d with proper patient identification (initials B, B) and body of stomach Bx are 2 fragments of high soft tissue (0.3 x 0.2 x 0.2 cm and 0.5 x 0.3 x 0.2 cm). The specimen is entirely submitted in B1. C. Received in formalin evelio d with proper patient identification (initials B, B) and GE junction polyp is a single fragment of high soft tissue (0.4 x 0.3 x 0.2 cm). The specimen is entirely submitted in C1. KENY WAGNER([facility]) 10/15/2021 8:45 Resident/Fellow: Shelby Harris MD [facility] Performing Lab [facility] Scanned Images [facility] Specimen Tissue - Specimen from stomach obtained by total gastrectomy (specimen) Tissue specimen (specimen) - Gastric/Sto mach, Body Tissue specimen (specimen) - Specimen fr om stomach obtained by total gastrectomy (specimen) Performing Organization Address City/State/ZIP Code Phon e Number [facility] [address] [place] [address] SERVICES documented in this encounter Visit Diagnoses Diagnosis Encounter for other general examination documented in this encounter Care Teams Roll Threader Operator Relationship Specialty Start Date End Date Mar Viera ALIYA PCP - General 07/28/16 documented as of this encounter
--- OUTSIDE RECORDS SUMMARY | 2021-10-24 07:38 | XMS_ITS | Encounter Summary ---
:1940 Author Organization [facility] Address [address] [place] [address] Care Team Providers Name Role Phone Unavailable Primary Care Provider Unavailable Encounter Details Date Type Department Care Team Description 12/16/1999 Results Only [facility] - Lilliana Soriano son, Gertrude Givens, CLIP BOLTER AND WRAPPER conversion [address] [place] [phone] (Wo rk) Social History Tobacco Use Types Packs/Day Years Used Date Never Assessed Sex Assigned at Date Recorded Not on file documented as of this encounter Plan of Treatment Not on filedocumented as of this encounter Procedures Procedure Name Priority Date/Time Associated Diagnosis Comme nts CYTOPATHOLOGY Routine 12/16/1999 0:00 EDT Results for this procedure are i n the results section . documented in this encounter Results CYTOPATHOLOGY (12/16/1999 0:00 EDT) Pathology Report: CYTOPATHOLOGY REPORT [facility] Reports generated via electronic interface contain everett ginal data; however they are lacking the format of the original re port. Caution should be taken when reading/interpreting unfo rmatted reports. Name: ? JOANIE LAROSE ? Accession #: ? [id number] : ? 1940 (Age: 59) ??F ?Collect Date: ? 11/19 Location: ? [facility] ? Receive Date : ? 12/20/1999 Provider: ?GERTRUDE GUEVARA CLIP BOLTER AND WRAPPER Copy to: ? Specimen/Source: ?ThinPrep Pap Test, Cervix Last Menstrual Period: ? 1991 Previous Gynecologic Pathology: ? Yes Other: ? Additional clinical information: Cervical polyp. ? SPECIMEN ADEQUACY ? Satisfactory for evaluation. GENERAL CATEGORIZATION ? Within Normal Limits ? Document reviewed and electronically signed by: ? SEVERO Urbina(ASCP) ? Report Date: ??12/22/1999 11:22 End of Report Specimen Performing Organization Address City/State/ZIP Code Phon e Number [facility] [address] [place] [address] SERVICES [facility] [address] [place] [address] documented in this encounter Visit Diagnoses Not on filedocumented in this encounter
--- OUTSIDE RECORDS SUMMARY | 2021-10-24 07:38 | XMS_ITS | Encounter Summary ---
:1940 Author Organization [facility] [place] [address] Care Team Providers Name Role Phone Mar Viera APRN Primary Care Provider Reason for Visit Reason Onset Date Comments Dysphagia 06/06/2018 Encounter Details Date Type Department Care Team Description 06/06/2018 Telephone Gastroenterology at [facility] [place] [address] Social History Tobacco Use Types Packs/Day Years Used Date Never Smoker Smokeless Tobacco: Never Used Alcohol Use Standard Drinks/Week Comments Yes 4 (1 standard drink = 0.6 oz pure alcoho l) Sex Assigned at Date Recorded Not on file documented as of this encounter Miscellaneous Notes Telephone Encounter - Carolyn Nieves RN - 06/06/2018 4:06 PM EDT Attempted to call patient to follow up on her refill request for pantoprazole. Phone connection was poor. Second attempt to call, phone rang with no answer or voice mail. documented in this encounter Plan of Treatment Upcoming Encounters Date Type Specialty Care Team Description 12/17/2021 Office Visit Dermatology Orlando Borrero MD [address] [place] [address] DERMATOLOGY [place], [place] [address] (Wo rk) documented as of this encounter Visit Diagnoses Not on filedocumented in this encounter Care Teams Roll Bucker Relationship Specialty Start Date End Date Mar Viera APRN PCP - General Internal Medicine 01/25/[address] [place] [address] documented as of this encounter
--- OUTSIDE RECORDS SUMMARY | 2021-10-24 07:38 | XMS_ITS | Encounter Summary ---
:1940 Author Organization [facility] [place] [address] Care Team Providers Name Role Phone Mar Viera APRN Primary Care Provider Encounter Details Date Type Department Care Team Description 04/03/2018 Telephone Gastroenterology at [facility] Sharifa Oconnor MD [facility] [place] [address] GASTROENTEROLOGY DEPT [phone] [place], [place] [address] (Wo rk) Social History Tobacco Use Types Packs/Day Years Used Date Never Smoker Smokeless Tobacco: Never Used Alcohol Use Standard Drinks/Week Comments Yes 4 (1 standard drink = 0.6 oz pure alcoho l) Sex Assigned at Date Recorded Not on file documented as of this encounter Miscellaneous Notes Telephone Encounter - Sharifa Oconnor MD - 04/03/2018 4:46 PM EST Attempted to reach Ms. Larose, who called in earlier today, but unable to reach by phone. She is having recurrence of abdominal pain after initially responding to omeprazole. Recommend switching to a different PPI, since she initially responded well to this class of medication. Protonix prescription sent to her pharmacy, will continue to attempt to reach by phone. documented in this encounter Plan of Treatment Upcoming Encounters Date Type Specialty Care Team Description 12/17/2021 Office Visit Dermatology Orlando Borrero MD [address] [facility] DERMATOLOGY [place], [place] [address] (Wo rk) documented as of this encounter Visit Diagnoses Not on filedocumented in this encounter Care Teams Rn Faculty Relationship Specialty Start Date End Date Mar Viera APRN PCP - General Internal Medicine 01/25/[address] [place] [address] documented as of this encounter
--- OUTSIDE RECORDS SUMMARY | 2021-10-24 07:38 | XMS_ITS | Encounter Summary ---
:1940 Author Organization [facility] Address [address] [place] [address] Care Team Providers Name Role Phone Unavailable Primary Care Provider Unavailable Encounter Details Date Type Department Care Team Description 10/02/2008 Orders Only [facility] Rita Burgess, ALIYA Laboratory Services - Madeleine GRIFFIN [address] [address] [place] [address] [phone] Social History Tobacco Use Types Packs/Day Years Used Date Never Assessed Sex Assigned at Date Recorded Not on file documented as of this encounter Plan of Treatment Not on filedocumented as of this encounter Procedures Procedure Name Priority Date/Time Associated Diagnosis Comme nts CYTOPATHOLOGY Routine 10/02/2008 0:00 EDT Results for this procedure are i n the results section . documented in this encounter Results CYTOPATHOLOGY (10/02/2008 0:00 EDT) Pathology Report: CYTOPATHOLOGY REPORT ? [facility]ENE [facility] ? LAB Reports generated via electr onic interface contain original data; ? however they are lacking the format of the original report. ? Caution should be taken when reading/interpreting unformatted reports. ? Name: ? JOANIE LAROSE ? Accession #: ? [id number] ? : ? 1940 (Age: 68) ??F ?Collect Date: ? 10/02/2008 ? Location: ? [facility] ? Receive Date: ? 10/03/2008 ? Provider: ?KURT L R LUZINSON NURSING HOME PHYSICIAN ? Copy to: ? Specimen/Source: ? Pap Test, Cervix, ThinPrep Imaging System with manual ?? evaluation ? Last Menstrual Period: ? 1992 ? Other: ? HPVA - HPV testing requested if ASC-US on the current ThinPrep Pap test. ? SPECIMEN ADEQUACY ? Satisfactory for Eval uation ? - transformation zone compon ent present ? GENERAL CATEGORIZATION ? Negative for Intraepi thelial Lesion or Malignancy ? Document reviewed and electr onically signed by: ? Gwendolyn Mitch, CT(ASCP ) ? Report Date: ??07/21/ 2009 09:48 ? End of Report ? Specimen Performing Organization Address City/State/ZIP Code Phon e Number [facility] [address] [place] [address] SERVICES [facility] [address] [place] [address] documented in this encounter Visit Diagnoses Not on filedocumented in this encounter
--- OUTSIDE RECORDS SUMMARY | 2021-10-24 07:38 | XMS_ITS | Encounter Summary ---
:1940 Author Organization [facility] Address [address] [facility] [place] [address] Care Team Providers Name Role Phone Unknown, Provider Primary Care Provider Encounter Details Date Type Department Care Team Description 07/22/2016 Results Only [facility]- Mack Alfonso PA [phone] [facility] [facility] [place] [address] (Wo rk) Social History Tobacco Use Types Packs/Day Years Used Date Never Assessed Sex Assigned at Date Recorded Not on file documented as of this encounter Plan of Treatment Not on filedocumented as of this encounter Procedures Procedure Name Priority Date/Time Associated Diagnosis Comme nts SURGICAL PATHOLOGY Routine 07/22/2016 9:20 EDT Re sults for this procedure are i n the results section. documented in this encounter Results SURGICAL PATHOLOGY (07/22/2016 9:20 EDT) Pathology Report: SURGICAL PATHOLOGY REPORT [facility] Reports generated via electronic interface contain everett ginal data; LABORATORY however they are lacking the format of the original re port. SERVICES Caution should be taken when reading/interpreting unfo rmatted reports. Name: ? JOANIE LAROSE ? Accession #: ? [id number] ? : ? 1940 (Age: 75 ) ??F ? Collect Date: ? 07/22/2016 ? Location: ? [facility] ? Receive Date: ? 7 ? Provider: MACK BUSTILLO Copy to: QUINN [place] GARAGE DOOR SERVICE TECHNICIAN ? Final Pathologic Diagnosis: SKIN OF NECK, SHAVE BIOPSY: - Seborrheic keratosis, inflamed. ??See comment. Comment: The findings are those of a seborrheic keratosis, best appreciated on deeper sections. ??(Dr. Ruiz)/[facility] Document reviewed and electronically signed by: LALY RUIZ MD Report ??Date: 07/26/2016 14:48 By the signature above, the attending physician certif ies that he/she has personally conducted a gross and/or microscopic examin ation of the described specimens and rendered or confirmed the above diagnosi s. Specimen(s) Received: Neck nevus of unknown behavior Clinical History: Neck nevus of unknown behavior Gross Description: ? Received in formalin labelled with proper patient identification (initials B, B) and excision of neck nevus of unknown behavior is a shave biopsy of white-high skin (1.1 x 0.5 x 0.1 cm). There is an off center white brown mottled papule that measures 0.4 x 0 .3 x 0.2 cm. The margin is inked blue. Bisected and submitted in 1. Andrea Feldman 07/25/2016 12:48 PM End of Report Specimen Performing Organization Address City/State/ZIP Code Phon e Number [facility] [address] [place] [address] SERVICES documented in this encounter Visit Diagnoses Not on filedocumented in this encounter Care Teams Mill Operator Head Relationship Specialty Start Date End Date Unknown, Provider, PCP - General 12/07/09 07/27/16 documented as of this encounter
--- OUTSIDE RECORDS SUMMARY | 2021-10-24 07:38 | XMS_ITS | Encounter Summary ---
:1940 Author Organization [facility] [address] Care Team Providers Name Role Phone Mar Viera APRN Primary Care Provider Encounter Details Date Type Department Care Team Description 10/13/2020 Hospital [place] [address] Social History Tobacco Use Types Packs/Day Years Used Date Never Smoker Smokeless Tobacco: Never Used Alcohol Use Standard Drinks/Week Comments Yes 4 (1 standard drink = 0.6 oz pure alcoho l) Sex Assigned at Date Recorded Not on file documented as of this encounter Medications at Time of Discharge Medication Sig Dispensed Refills Start Date End Date OneTouch Delica Plus Lancet USE TO TEST BLOOD 0 0 09/01/2020 33 gauge Misc SUGAR DIRECTED losartan (COZAAR) 100 mg TAKE 1 TABLET BY 0 08/21 Tablet MOUTH DAILY pantoprazole EC (Protonix) 40 Take 1 tablet by 90 tablet 3 06/05/2019 mg Tablet, Delayed Release mouth daily. (E.C.)Indications: Gastritis, eosinophilic meclizine (ANTIVERT) 25 mg Take 25 mg by 0 Tablet mouth as needed. atorvastatin (LIPITOR) 10 mg Take 10 mg by 0 Tablet mouth daily. aspirin 81 mg Tablet, Delayed Take 81 mg by 0 Release (E.C.) mouth every other day. ascorbic acid, vitamin C, Take 500 mg by 0 (VITAMIN C) 500 mg Tablet mouth daily. b complex vitamins Capsule Take 1 capsule by 0 mouth daily. calcium-vitamin D3 600 mg Take by mouth. 0 calcium- 400 unit Tablet lactobacillus rhamnosus, GG, Take 1 capsule by 0 (CULTURELLE) 10 billion cell mouth daily. Capsule DIAZEPAM (VALIUM ORAL) Take by mouth. 0 hydrochlorothiazide Take 12.5 mg by 0 (HYDRODIURIL) 25 mg Tablet mouth daily. fluticasone (FLOVENT) 110 Inhale 1 puff into 0 mcg/actuation Aerosol the lungs 2 times daily. fluticasone (FLONASE) 50 1 spray daily. 0 mcg/actuation [place], Suspension documented as of this encounter Plan of Treatment Upcoming Encounters Date Type Specialty Care Team Description 12/17/2021 Office Visit Dermatology Orlando Borrero MD [address] DERMATOLOGY [place], [place] [address] (Wo rk) documented as of this encounter Procedures Procedure Name Priority Date/Time Associated Diagnosis Comme nts SURGICAL PATHOLOGY Routine 10/13/2020 2:00 PM Res ults for this REPORT EDT procedure are i n the results section. documented in this encounter Results Surgical Pathology Report (10/13/2020 2:00 PM EDT) Component Value Ref Test Analysis Performed At [facility] Range Method Time Signature Surgical [id number] ? Location: [facility] Report The signing pathologist has (i) examined the relevant preparation(s) for the [facility] specimen(s) and (ii) rendered or confirmed the diagnosis(es) . HOSPITAL [facility]ORY . ?Surgic al Pathology DIAGNOSIS Right upper anterior chest, skin shave biopsy: - ??Basal cell carcinoma, rooney perficial and nodular types, ?? close to the specimen edges ?? in the examined planes of section Electronically signed by: ?Reinaldo Hernandez MD Verified: ??10/20/2020 10:12 ??Dermatopathologist Performed at: ??-[facility] Dept. of Pathology, [place], [place] SPECIMEN(S) SUBMITTED A - R upper anterior chest, skin shave biopsy CLINICAL INFORMATION Pearly papule, tx'ed and shave c&d; BCCA/SCCA SPECIMEN PROCESSING A - Labeled/Fixative: R upper anterior chest, formalin. Quantity/Size: ??Single, 1.1 x 1.0 x 0.1 cm. Tissue Description: Shave of a high, glistening skin papule. Sections/Processing: Inked, serially sectioned and entirely submitted in 2 casie ettes as follows: ?A1: ??Tips ?A2: ??Body with papule ??mark Specimen (Source) Anatomical Collection Method Collection Time Re ceived Time Location / / Volume Laterality 10/13/2020 2:00 PM EDT Orlando Borrero MD PATHOLOGY/CYTOLOGY ORDERABLE S Performing Organization Address City/State/[place] [address] documented in this encounter Visit Diagnoses Not on filedocumented in this encounter Care Teams Rn Obgyn Relationship Specialty Start Date End Date Mar Viera APRN PCP - General Internal Medicine 01/25/17 [address] [place] [address] documented as of this encounter
--- OUTSIDE RECORDS SUMMARY | 2021-10-24 07:38 | XMS_ITS | Encounter Summary ---
:1940 Author Organization [facility] [place] [address] Care Team Providers Name Role Phone Mar Viera APRN Primary Care Provider Reason for Visit Reason Comments Follow-up suture removal Encounter Details Date Type Department Care Team Description 04/09/2020 Office Visit Dermatology at Orlando Davis, History of basal cell carcinoma; Kenji ORTEGA Visit for suture removal [address] Steven [address] DERMATOLOGY [place], [place] [address] [phone] Social History Tobacco Use Types Packs/Day Years Used Date Never Smoker Smokeless Tobacco: Never Used Alcohol Use Standard Drinks/Week Comments Yes 4 (1 standard drink = 0.6 oz pure alcoho l) Sex Assigned at Date Recorded Not on file documented as of this encounter Progress Notes Orlando Davis MD - 04/09/2020 10:30 AM EST Problem: Follow-up for suture removal and biopsy results Joanie follows up and we do not yet have the biopsy report back from her left lateral neck excision site. She had no problems postoperatively. Physical examination reveals excellent healing of the site. 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 Await biopsy results 2. Sutures today removed 3. Return to clinic in 6 months for repeat check and thereafter will likely be able to space visits out again. CC: Mar Viera APRN documented in this encounter Miscellaneous Notes Addendum Note - Orlando Davis MD - 04/09/2020 10:30 AM EST Addended by: ORLANDO DAVIS on: 04/10/2020 08:34 AM Modules accepted: Level of Service documented in this encounter Plan of Treatment Upcoming Encounters Date Type Specialty Care Team Description 12/17/2021 Office Visit Dermatology Orlando Davis MD [address] [facility] DERMATOLOGY [place], [place] [address] (Wo rk) documented as of this encounter Visit Diagnoses Diagnosis History of basal cell carcinoma Personal history of other malignant neop lasm of skin Visit for suture removal Encounter for removal of sutures documented in this encounter Care Teams Used Car Lot Attendant Relationship Specialty Start Date End Date Mar Viera APRN PCP - General Internal Medicine 01/25/17 [address] [place] [address] documented as of this encounter
--- OUTSIDE RECORDS SUMMARY | 2021-10-24 07:38 | XMS_ITS | Encounter Summary ---
:1940 Author Organization [facility] [place] [address] Care Team Providers Name Role Phone Mar Viera APRN Primary Care Provider Reason for Visit Reason Onset Date Comments Medication Refill 06/02/2019 Encounter Details Date Type Department Care Team Description 06/02/2019 Refill [facility]ology at [facility] Tiff Rosado Gastritis, [facility] [place] [address] [facility] [phone] GASTROENTEROLOGY DEPT [place], [place] [address] Social History Tobacco Use Types [...] Office Visit Dermatology Orlando Borrero MD [address] DERMATOLOGY [place], [place] [address] (Wo rk) documented as of this encounter Visit Diagnoses Diagnosis Gastritis, eosinophilic Eosinophilic gastritis, 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
--- OUTSIDE RECORDS SUMMARY | 2021-10-24 07:38 | XMS_ITS | Encounter Summary ---
:1940 Author Organization [facility] [place] [address] Care Team Providers Name Role Phone Mar Viera APRN Primary Care Provider Reason for Visit Reason Comments Follow-up Encounter Details Date Type Department Care Team Description 04/02/2020 Procedure visit Dermatology at Orlando Borrero, [facility] Kenji ORTEGA cell carcinoma [address] [place], [place] DERMATOLOGY [address] [place], [place] [phone] [address] Social History Tobacco Use Types Packs/Day Years Used Date Never Smoker Smokeless Tobacco: Never Used Alcohol Use Standard Drinks/Week Comments Yes 4 (1 standard drink = 0.6 oz pure alcoho l) Sex Assigned at Date Recorded Not on file documented as of this encounter Progress Notes Orlando Borrero MD - 04/02/2020 2:15 PM EST Clinical impression: 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 Informed verbal consent was obtained. Skin surface was prepared with 4% chlorhexidine and draped in usual sterile manner. Local anesthesiawith 1% lidocaine, 1 / 100,000 epinephrine and 0.1 mEq/mL bicarbonate. A #15 blade and 3 mm margins,an excision was carried out around the triangularly shaped tumor. Undermining performed peripherally. An A toT closure was performed with the apex of the triangle pointing inferiorly on this left lateral neck site. Redundant tissue was removed at the more anterior end of the base of the A toT closure.Following completion of the surgery, the suture line measured 5 cm x 2 cm. Layered closure was performed, specimen pathology. Wound dressed, wound care reviewed CC: Follow-up in 1 week for suture removal and biopsy results. CC: Mar Viera APRN documented in this encounter Plan of Treatment Upcoming Encounters Date Type Specialty Care Team Description 12/17/2021 Office Visit Dermatology Orlando Borrero MD [address] [place] [address] DERMATOLOGY [place], [place] [address] (Wo rk) documented as of this encounter Visit Diagnoses Diagnosis History of basal cell carcinoma Personal history of other malignant neop lasm of skin documented in this encounter Care Teams Bacteriologist Soil Relationship Specialty Start Date End Date Mar Viera APRN PCP - General Internal Medicine 01/25/17 [address] [place] [address] documented as of this encounter
--- OUTSIDE RECORDS SUMMARY | 2021-10-24 07:38 | XMS_ITS | Encounter Summary ---
:1940 Author Organization [facility] [place] [address] Care Team Providers Name Role Phone Mar Viera APRN Primary Care Provider Encounter Details Date Type Department Care Team Description 06/06/2018 Abstract Gastroenterology at [facility] Carolyn Nieves, [place] [address] Social History Tobacco Use Types Packs/Day Years Used Date Never Smoker Smokeless Tobacco: Never Used Alcohol Use Standard Drinks/Week Comments Yes 4 (1 standard drink = 0.6 oz pure alcoho l) Sex Assigned at Date Recorded Not on file documented as of this encounter Plan of Treatment Upcoming Encounters Date Type Specialty Care Team Description 12/17/2021 Office Visit Dermatology Orlando Borrero MD [address] DERMATOLOGY [place], [place] [address] (Wo rk) documented as of this encounter Visit Diagnoses Not on filedocumented in this encounter Care Teams Dean Of Faculty Relationship Specialty Start Date End Date Mar Viera APRN PCP - General Internal Medicine 01/25/17 [address] [place], [place] [address] documented as of this encounter
--- OUTSIDE RECORDS SUMMARY | 2021-10-24 07:38 | XMS_ITS | Clinical Summary ---
:1940 Author Organization [facility] Address [address] [place] [address] Care Team Providers Name Role Phone Mar Viera RETAIL LOAN ORIGINATOR Primary Care Provider Encounters Date Type Specialty Care Team Description 10/14/2021 Lab Requisition Clinical Laboratory Reid Mason, En counter for other general examina tion from Last 3 Months Social History Tobacco Use Types Packs/Day Years Used Date Never Assessed Sex Assigned at Date Recorded Not on file Plan of Treatment Health Maintenance Due Date Last Done Comments COVID-19 Vaccine (#1) 03/26/1941 Fall Risk Screening 2005 Procedures Procedure Name Priority Date/Time Associated Diagnosis Comme nts SURGICAL PATHOLOGY Today 10/14/2021 10:55 Encounter for othe r Results for this EDT general examination procedur e are in the results section. from Last 3 Months Results SURGICAL PATHOLOGY (10/14/2021 10:55 EDT) Note to Patient The following [facility] pathology results have CENTER been interpreted by LABORATORY your pathologist and SERVICES may be available to you before your health provider has had the opportunity to review them. Please allow time for your provider to receive these results and explore management options, if applicable. Final Diagnosis A. STOMACH, ANTRUM, BIOPSY: [facility] - Gastric antral mucosa with reactive (chemical) gastr opathy. CENTER - Negative for Helicobacter pylori microorganism s on H&E stained sections. LABORATORY SERVICES B. STOMACH, BODY, BIOPSY: - Gastric body mucosa with no specific pathologic feat ures. C. GASTROESOPHAGEAL JUNCTION, POLYP, BIOPSY: - Benign hyperplastic polyp. - Background fundic type mucosa with no specific patho logic features. Attestation There was significant [facility] Electr onically resident/fellow CENTER signed by Jose Raul ricardo, involvement in the LABORATORY MD Nasreen on diagnostic evaluation SERVICES 10/19/19 22 at 1827 of this case. By the signature below, the attending physician certifies that they have personally conducted a gross and/or microscopic examination of the described specimens and rendered or confirmed the above diagnosis. Clinical History Esophagitis; R/O H. [facility] Pylori; R/O malignancy CENTER (endometrial polyp) LABORATORY SERVICES Gross Description A. [facility] Received in formalin evelio d with [...] specimen is entirely submitted in C1. KENY WAGNER([facility]) 10/15/2021 8:45 Resident/Fellow: Shelby Harris MD [facility] SERVICES Performing Lab [facility] Scanned Images [facility] SERVICES Specimen Tissue - Specimen from stomach obtained by total gastrectomy (specimen) Tissue specimen (specimen) - Gastric/Sto mach, Body Tissue specimen (specimen) - Specimen fr om stomach obtained by total gastrectomy (specimen) Performing Organization Address City/State/ZIP Code Phon e Number [facility] [address] [place] [address] SERVICES from Last 3 Months Insurance Payer Benefit Plan Subscriber ID Effective Phone Address Typ e / Group Dates [employer] OF M[employer] OF [id number] 2005-[id number] [place] [address] MEDICARE MEDICARE A/B [id number] 2005-Sahil Mcclure [address] Medicare nt [address] [place] [id number] Joanie Larose Personal/Family Self [address] [place] [address] Joanie Larose Personal/Family Self [address] [place] [address] Joanie Larose Personal/Family Self [address] [place] [address] Care Teams Speedometer Mechanic Relationship Specialty Start Date End Date Mar Viera NP PCP - General 07/28/16
--- OUTSIDE RECORDS SUMMARY | 2021-10-24 07:38 | XMS_ITS | Encounter Summary ---
:1940 Author Organization [facility] Address [address] [place] [address] Care Team Providers Name Role Phone Unavailable Primary Care Provider Unavailable Encounter Details Date Type Department Care Team Description 02/05/2002 Results Only [facility] Lilliana Soriano son, Gertrude Givens, CERTIFIED NUTRITIONIST conversion [address] [place] [phone] (Wo rk) Social History Tobacco Use Types Packs/Day Years Used Date Never Assessed Sex Assigned at Date Recorded Not on file documented as of this encounter Plan of Treatment Not on filedocumented as of this encounter Procedures Procedure Name Priority Date/Time Associated Diagnosis Comme nts CYTOPATHOLOGY Routine 02/05/2002 0:00 EST Results for this procedure are i n the results section . documented in this encounter Results CYTOPATHOLOGY (02/05/2002 0:00 EST) Pathology Report: CYTOPATHOLOGY REPORT [facility] Reports generated via electronic interface contain everett ginal data; however they are lacking the format of the original re port. Caution should be taken when reading/interpreting unfo rmatted reports. Name: ? JOANIE LAROSE ? Accession #: ? [id number] : ? 1940 (Age: 61) ??F ?Collect Date: ? 01/18 Location: ? [facility] ? Receive Date : ? 02/07/2002 Provider: ?GERTRUDE GUEVARA CERTIFIED NUTRITIONIST Copy to: ? Specimen/Source: ?ThinPrep Pap Test, Cervix/ Endocervix Last Menstrual Period: ? 1989' ? SPECIMEN ADEQUACY ? Satisfactory for Evaluation - transformation zone component present GENERAL CATEGORIZATION ? Negative for Intraepithelial Lesion or Malignan cy ? Document reviewed and electronically signed by: ? Tracy Horn, SEVERO(ASCP)(IAC) ? Report Date: ??02/12/2002 17:23 End of Report Specimen Performing Organization Address City/State/ZIP Code Phon e Number [facility] [address] [place] [address] SERVICES [facility] [address] [place] [address] documented in this encounter Visit Diagnoses Not on filedocumented in this encounter
--- OUTSIDE RECORDS SUMMARY | 2021-10-24 07:38 | XMS_ITS | Encounter Summary ---
:1940 Author Organization [facility] Address [address] [place] [address] Care Team Providers Name Role Phone Mar Viera FIELD ADMINISTRATOR Primary Care Provider Encounter Details Date Type Department Care Team Description 08/01/2017 Results Only [facility] Jeff Corey, [address] [place] [address] (Wo rk) Social History Tobacco Use Types Packs/Day Years Used Date Never Assessed Sex Assigned at Date Recorded Not on file documented as of this encounter Plan of Treatment Not on filedocumented as of this encounter Procedures Procedure Name Priority Date/Time Associated Diagnosis Comme nts SURGICAL PATHOLOGY Routine 08/01/2017 15:41 Resul ts for this EDT procedure are i n the results section. documented in this encounter Results SURGICAL PATHOLOGY (08/01/2017 15:41 EDT) Pathology Report: SURGICAL PATHOLOGY REPORT [facility] Reports generated via electronic interface contain everett ginal data; LABORATORY however they are lacking the format of the original re port. SERVICES Caution should be taken when reading/interpreting unfo rmatted reports. Name: ? JOANIE LAROSE ? Accession #: ? [id number] ? : ? 1940 (Age: 76 ) ??F ? Collect Date: ? 08/01/2017 ? Location: ? [facility] ? Receive Date: ? 08/02/19 18 ? Provider: JEFF COREY MD Copy to: MAR VIERA FIELD ADMINISTRATOR ? Final Pathologic Diagnosis: STOMACH, ANTRUM, BIOPSY: - Eosinophilic Gastritis. COMMENT: This gastric biopsy shows superficial dense lamina propria eosinophilic infiltrates with glandular involvement, including scat tered eosinophilic microabscesses, in a background of stromal edema and m ild reactive foveolar hyperplasia. ??No Helicobact er pylori organisms are identified. The differential diagnosis of this unusual pattern of injury includes: the mucosal variant of idiopathic eosinophilic gastroenteritis, drug-in duced eosinophilia, parasitic infestation, food allergy, and seasonal/geographic zari iation. Clinical and serologic correlation is required t o establish a more definitive diagnosis. ? Document reviewed and electronically signed by: RG DWYER MD Report ??Date: 08/02/2017 15:54 By the signature above, the attending physician certif ies that he/she has personally conducted a gross and/or microscopic examin ation of the described specimens and rendered or confirmed the above diagnosi s. Specimen(s) Received: Bx gastric antrum Clinical History: GERD; R/O H. pylori Gross Description: ? Received in formalin labelled with proper patient identification (initials B, B) and bx gastric antrum are two fragments of high-pink tissue measuring 0.3 x 0.3 x 0.2 cm. The specimens are submitted entirely i n 1. KENY Vaughn ([facility]) 08/01/2017 3:57 PM End of Report Specimen Performing Organization Address City/State/ZIP Code Phon e Number [facility] [address] [place] [address] SERVICES documented in this encounter Visit Diagnoses Not on filedocumented in this encounter Care Teams Polysomnography Technologist Relationship Specialty Start Date End Date Mar Viera NP PCP - General 07/28/16 documented as of this encounter
--- OUTSIDE RECORDS SUMMARY | 2021-10-24 07:38 | XMS_ITS | Encounter Summary ---
:1940 Author Organization [facility] [place] [address] Care Team Providers Name Role Phone Mar Viera APRN Primary Care Provider Reason for Visit Reason Comments Skin Check Consultation (Routine) - Closed Specialty Diagnoses / Procedures Referred By Contact Refer red To Contact Dermatology Diagnoses Disorder of the skin and subcutaneous tissue, unspecified AK (?) LT Neck, SK's on Scalp that are Very Itchy; Est. Patient-Notes Received Mar Viera APRN Hammer, Charles J, MD Procedures Consult [address] [place], [place] DERMATOLOGY [address] [place] [phone] Fax: Referral ID Status Reason Start Date Expiration Date Visits V isits Requested Authorized [id number] Closed Consult, Test 02/05/2020 08/04/2020 1 1 & Treat PCP Updated and/or Approved Encounter Details Date Type Department Care Team Description 03/27/2020 Office Visit Dermatology at Orlando Borrero [place] (rena Phillip MD keratosis) [address] [facility] [address] DERMATOLOGY [place], [place] [address] [phone] Social History Tobacco Use Types Packs/Day Years Used Date Never Smoker Smokeless Tobacco: Never Used Alcohol Use Standard Drinks/Week Comments Yes 4 (1 standard drink = 0.6 oz pure alcoho l) Sex Assigned at Date Recorded Not on file documented as of this encounter Progress Notes Orlando Borrero MD - 03/27/2020 3:15 PM EST Abdomen: New lesions of concern Joanie follows up with us after last seeing me in 2013. She referred back to me by Mar Viera. Patient has developed some new lesions on her face and on the left lateral neck. Physical examination reveals a pleasant 79-year-old woman who has actinic keratoses on the upper forehead left worship right nasal sidewall and nasal tip. A total of 6 sites are noted. She has a pearly triangular papule centimeter on an edge on the left lateral neck concerning for probable BCCA. Examination of her scalp is unremarkable. She has number of seborrheic keratoses present throughout the thinning parietal scalp. Assessment plan: Actinic keratosis, facial 1. 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 We will schedule 45-minute appointment for excision of this in the near future. 2. Reassured patient about the largely nonmetastatic nature of the suspected tumor. 3. Answered patient questions about surgery. CC: Mar Viera APRN documented in this encounter Plan of Treatment Upcoming Encounters Date Type Specialty Care Team Description 12/17/2021 Office Visit Dermatology Orlando Borrero MD [address] [facility] DERMATOLOGY [place], [place] [address] (Wo rk) documented as of this encounter Visit Diagnoses Diagnosis AK (actinic keratosis) Actinic keratosis documented in this encounter Care Teams Dramatic Coach Relationship Specialty Start Date End Date Mar Viera APRN PCP - General Internal Medicine 01/25/17 [address] [place] [address] documented as of this encounter
--- OUTSIDE RECORDS SUMMARY | 2021-10-24 07:38 | XMS_ITS | Encounter Summary ---
:1940 Author Organization [facility] Address [address] [place] [address] Care Team Providers Name Role Phone Unknown, Provider Primary Care Provider Encounter Details Date Type Department Care Team Description 12/07/2009 Results Only [facility] Gertrude Campbell MD Laboratory Services - [address] [place] [address] [address] [place] [address] Social History Tobacco Use Types Packs/Day Years Used Date Never Assessed Sex Assigned at Date Recorded Not on file documented as of this encounter Plan of Treatment Not on filedocumented as of this encounter Procedures Procedure Name Priority Date/Time Associated Diagnosis Comme nts SURGICAL PATHOLOGY Routine 12/07/2009 0:00 EDT Re sults for this procedure are i n the results section. documented in this encounter Results SURGICAL PATHOLOGY (12/07/2009 0:00 EDT) Pathology Report: SURGICAL PATHOLOGY REPORT ? JASSI DEJESUS Reports generated via electr Digilab interface contain original data; ? LAB however they are lacking the format of the original report. ? Caution should be taken when reading/interpreting unformatted reports. ? Name: ? THUAN, JOANIE M ? Accession #: ? [id number] ? : ? 1940 (Age: 69) ??F ? Collec t Date: ? 12/07/2009 ? Location: ? [facility] ? R eceive Date: ? 12/07/2009 ? Provider: GERTRUDE ADRIAN MD ? Copy to: GERTRUDE L GUEVARA N P ? KADEEM MEIERDIERCKS MD ? Final Pathologic Diagnosis: ? Cervix, polyp, biopsy : ? 1. ?Adenofibrom a. ??See comment. ? 2. ? Fragments of atroph ic squamous epithelia and endocervical glands. ? Comment: ? Although controversy exists with respect to the above diagnosis in some ? quarters, there is no eviden t cytological atypia nor mitoses in the stroma to ?? entertain a diagnosis of low grade adenosarcoma. Hence close clinical ? correlation and follow-up is advised. This case was reviewed at the departmental consultation conference. Padma villalobos were examined. The office of Dr Loredo ?? Adrian was called on December 11, 2009. ??(Dr. Laurent)/[facility] ? Document reviewed and electr onically signed by: ? Lawrence Hayes ? Report ??Date: 12/11/2009 15 :49 ? By the signature above, the attending physician certifies that he/she has ? personally conducted a gross and/or microscopic examination of the described ? specimens and rendered or co nfirmed the above diagnosis. ? Specimen(s) Received: ? Cervical polyp ? Clinical History: ? Cervical polyp ? Gross Description: ? Received in formalin labelled Thuan, Joanie and cervical polyp is a ?? 2.5 x 2.0 x 0.7 cm aggregate of multiple fragments of pink-high tissue admixed ?? with mucus and blood. ??The specimen is filtered and entirely submitted as (A1) ?? and (A2). ??(Yony Leonardo)/ljn ? End of Report ? Specimen Performing Organization Address City/State/ZIP Code Phon e Number [facility] [address] [place] [address] SERVICES [facility] [address] [place] [address] documented in this encounter Visit Diagnoses Not on filedocumented in this encounter Care Teams Seed Cleaning Machine Operator Relationship Specialty Start Date End Date Unknown, Provider, PCP - General 12/07/09 07/27/16 documented as of this encounter
--- OUTSIDE RECORDS SUMMARY | 2021-10-24 07:38 | XMS_ITS | Clinical Summary ---
:1940 Author Organization [facility] [place] [address] Care Team Providers Name Role Phone Mar Viera APRN Primary Care Provider Allergies Active Allergy Reactions Severity Noted Date Comments Codeine 01/28/2014 Simvastatin 08/30/2018 Muscle ach Sulfa (Sulfonamide Antibiotics) 4 Medications Medication Sig Dispensed Refills Start Date End Date Status hydrochlorothiazide Take 12.5 mg 0 Active (HYDRODIURIL) 25 mg Tablet by mouth daily. fluticasone (FLOVENT) 110 Inhale 1 puff 0 Active mcg/actuation Aerosol into the lungs 2 times daily. fluticasone (FLONASE) 50 1 spray daily. 0 Active mcg/actuation [place], Suspension DIAZEPAM (VALIUM ORAL) Take by mouth. 0 Active meclizine (ANTIVERT) 25 mg Take 25 mg by 0 Active Tablet mouth as needed. atorvastatin (LIPITOR) 10 Take 10 mg by 0 Active mg Tablet mouth daily. aspirin 81 mg Tablet, Take 81 mg by 0 Active Delayed Release (E.C.) mouth every other day. ascorbic acid, vitamin C, Take 500 mg by 0 Active (VITAMIN C) 500 mg Tablet mouth daily. b complex vitamins Capsule Take 1 capsule 0 Active by mouth daily. calcium-vitamin D3 600 mg Take by mouth. 0 Active calcium- 400 unit Tablet lactobacillus rhamnosus, Take 1 capsule 0 Active GG, (CULTURELLE) 10 by mouth billion cell Capsule daily. pantoprazole EC (Protonix) Take 1 tablet 90 tablet 3 0 Active 40 mg Tablet, Delayed by mouth Release (E.C.)Indications: daily. Gastritis, eosinophilic OneTouch Delica Plus USE TO TEST 0 09/01/2020 Active Lancet 33 gauge Misc BLOOD SUGAR DIRECTED losartan (COZAAR) 100 mg TAKE 1 TABLET 0 08/21/2020 Active Tablet BY MOUTH DAILY Active Problems Problem Noted Date AK (actinic keratosis) 01/28/2014 Social History Tobacco Use Types Packs/Day Years Used Date Never Smoker Smokeless Tobacco: Never Used Alcohol Use Standard Drinks/Week Comments Yes 4 (1 standard drink = 0.6 oz pure alcoho l) Sex Assigned at Date Recorded Not on file Last Filed Vital Signs Vital Sign Reading Time Taken Comments Blood Pressure 170/96 03/07/2019 10:08 AM EST Pulse 92 03/07/2019 10:08 AM EST Temperature - - Respiratory Rate 17 12/01/2015 12:15 PM EDT Oxygen Saturation 97% 12/01/2015 12:15 PM EDT Inhaled Oxygen Concentration - - Weight 87.4 kg (192 lb 9.6 oz) 03/07/2019 10:08 AM EST Height 167.6 cm (5' 6) 03/07/2019 10:08 AM EST Body Mass Index 31.09 03/07/2019 10:08 AM EST Plan of Treatment Upcoming Encounters Date Type Specialty Care Team Description 12/17/2021 Office Visit Dermatology Orlando Borrero MD [address] [place] [address] D[place]OLOGY [place], [place] [address] (Wo rk) Health Maintenance Due Date Last Done Comments Covid-19 Vaccine (#1) 1945 Tdap adult 09/24/1959 Tetanus vaccine 09/24/1959 Zoster vaccine (1 of 2) 1990 Advance Directive 09/24/1995 Bone Density Scan 2005 Pneumoccocal Vaccine: 65+ (1 - PCV) 2005 Influenza (Flu) vaccine (1 of 1 - Influenza standard 11/18/2021 series) Insurance Payer Benefit Plan / Subscriber ID Effective Dates Phone Addre ss Type Group MEDICARE MEDICARE PART [id number] 2005-[employer] [phone] [place] [id number] [employer] [place] [id number] 2005-[place] [place] [id number] Care Teams Marble Carver Relationship Specialty Start Date End Date Mar Viera APRN PCP - General Internal Medicine 01/25/17 [facility] [address] [address] [place] [address]
--- OUTSIDE RECORDS SUMMARY | 2021-10-24 07:38 | XMS_ITS | Encounter Summary ---
:1940 Author Organization [facility] Address [address] [place] [address] Care Team Providers Name Role Phone Unknown, Provider Primary Care Provider Encounter Details Date Type Department Care Team Description 07/22/2016 Hospital Encounter [facility]- Madeleine Unknown, Provider, [facility] [address] [facility] [phone] [place] [address] (Work) [phone] Social History Tobacco Use Types Packs/Day Years Used Date Never Assessed Sex Assigned at Date Recorded Not on file documented as of this encounter Discharge Disposition Disposition Code Departure Means Destination Home or Self Senior Care documented in this encounter Plan of Treatment Not on filedocumented as of this encounter Visit Diagnoses Not on filedocumented in this encounter Care Teams Snake Charmer Relationship Specialty Start Date End Date Unknown, Provider, PCP - General 12/07/09 07/27/16 documented as of this encounter
--- OUTSIDE RECORDS SUMMARY | 2021-10-24 07:39 | XMS_ITS | Encounter Summary ---
:1940 Author Organization [facility] [place] [address] Care Team Providers Name Role Phone Samson Chavarria MD Primary Care Provider [phone] Reason for Visit Reason Comments Skin Check Encounter Details Date Type Department Care Team Description 01/28/2014 [facility] [place] (rena Phillip MD keratosis) [address] [facility] Steven B DERMATOLOGY [place], [place] [id number] [phone] Social History Tobacco Use Types Packs/Day Years Used Date Never Smoker Sex Assigned at Date Recorded Not on file documented as of this encounter Patient Instructions Patient InstructionsRicarda Putnam LPN - 01/28/2014 3:41 PM EST Images from the original note were not included. [facility] Actinic Keratosis: After Your Visit Your Care Instructions Actinic keratosis is a condition that develops in sun-exposed skin. It is not skin cancer, but it can turn into skin cancer if it is not removed. Actinic keratoses, also called solar keratoses, are small red, brown, or skin-colored scaly patches. They are most common on the face, neck, hands, and forearms. Your doctor can remove these growths by freezing or scraping them off or by putting medicines on them. Follow-up care is a allen part of your treatment and safety. Be sure to make and go to all appointments, and call your doctor if you are having problems. It's also a good idea to know your test results and keep a list of the medicines you take. How can you care for yourself at home? ?? If your doctor removes the growth, clean the area with soap and water 2 times a day unless your doctor gives you different instructions. Don't use hydrogen peroxide or alcohol, which can slow healing. ?? You may cover the wound with a thin layer of petroleum jelly, such as Vaseline, and a nonstick bandage. To prevent actinic keratosis ?? Always wear sunscreen on exposed skin. Make sure the sunscreen blocks ultraviolet rays (both UVA and UVB) and has a sun protection factor (SPF) of at least 15. Use it every day, even when it is cloudy. Some doctors may recommend a higher SPF, such as 30. ?? Wear long sleeves, a hat, and pants if you are going to be outdoors for a long time. ?? Avoid the sun between 10 a.m. and 4 p.m., the peak time for UV rays. ?? Do not use tanning booths or sunlamps. When should you call for help? Watch closely for changes in your health, and be sure to contact your doctor if: ?? The areas that were treated are red, drain pus, or have red streaks leading from them. ?? You see other growths that do not go away. ?? You do not get better as expected. Where can you learn more? Visit our health information library at [email or web address] You can also view health information on [employer], your personal patient account. Log in or sign up today. Enter L364 in the search box to learn more about Actinic Keratosis: After Your Visit. ?? [id number] [employer]. Care instructions adapted under license by [facility]. This care instruction is for use with your licensed healthcare professional. If you have questionsabout a medical condition or this instruction, always ask your healthcare professional. [employer] disclaims any warranty or liability for your use of this information. Content Version: 9.9.149047; Last Revised: May 01, 2012 documented in this encounter Progress Notes Orlando Borrero MD - 01/28/2014 3:52 PM EST Problem: Actinic keratoses. Joanie is a 73-year-old woman who is referred today by Dr. Chavarria for evaluation and treatment of actinic keratoses. She states that she has lived for a long time on [facility] and has had a fair amount of sun over the years. She has never had any problems or prior history of skin cancer she states. Physical examination reveals a blue-eyed, fair-skinned woman who has actinic keratoses across the forehead, on the bridge of the nose, and near the left jehovah's witness. Otherwise, careful examination of the head and neck, hands, arms, forearms, and her back is benign with the exception of one actinic on the left mid back. Assessment and Plan: Actinic keratoses. a. LN2 times two applied to each of four sites. b. Patient reassured about remainder of benign skin examination. c. I encouraged ongoing sun avoidance precautions, which the patient is now following. d. I recommended return to clinic p.r.n. at the patient's request or that of Dr. Samson Chavarria. COPY: Samson Chavarria M.D. documented in this encounter Plan of Treatment Upcoming Encounters Date Type Specialty Care Team Description 12/17/2021 Office Visit Dermatology Orlando Borrero MD [address] [facility] DERMATOLOGY [place], [place] [address] (Wo rk) documented as of this encounter Visit Diagnoses Diagnosis AK (actinic keratosis) Actinic keratosis documented in this encounter Care Teams Slide Fasteners Inspector Relationship Specialty Start Date End Date Samson Chavarria MD PCP - General 02/09/10 12/27/16 [address] [place] [address] documented as of this encounter
--- OUTSIDE RECORDS SUMMARY | 2021-10-24 07:39 | XMS_ITS | Encounter Summary ---
:1940 Author Organization [facility] [place] [address] Care Team Providers Name Role Phone Mar Viera APRN Primary Care Provider Reason for Visit Reason Onset Date Comments Prior Authorization 03/14/2018 Encounter Details Date Type Department Care Team Description 03/14/2018 Telephone Gastroenterology at [facility] Gil, Prior Authorization [facility] [place] [address] [place] [address] Social History Tobacco Use Types Packs/Day Years Used Date Never Smoker Smokeless Tobacco: Never Used Alcohol Use Standard Drinks/Week Comments Yes 4 (1 standard drink = 0.6 oz pure alcoho l) Sex Assigned at Date Recorded Not on file documented as of this encounter Miscellaneous Notes Telephone Encounter - Linda Cordero LNA - 03/14/2018 10:15 AM EST Medication Prior Authorization [facility] Gastroenterology / [place] [address] Subscriber Insurance: [employer] Phone: Fax: Insurance ID: Physician: Sharifa Oconnor Return Pharmacy: [facility] Fax: Medication Requested: Omeprazole Strength: 20mg Frequency: Twice Daily Disp.: 60 Refills: 5 Currently taking: Diagnosis for this medication: GERD ICD-10 code: K21.9 Prior medications trialed in this patient: Zantac Medication: Outcome/Adverse Reactions: Treatment Failure Decision: Tracking number/Case number/Reference number: Effective date: Start: End: documented in this encounter Plan of Treatment Upcoming Encounters Date Type Specialty Care Team Description 12/17/2021 Office Visit Dermatology Orlando Borrero MD [address] [facility] DERMATOLOGY [place], [place] [address] (Wo rk) documented as of this encounter Visit Diagnoses Not on filedocumented in this encounter Care Teams Green Building Energy Engineer Relationship Specialty Start Date End Date Mar Viera APRN PCP - General Internal Medicine 01/25/17 [address] [place] [address] documented as of this encounter
--- OUTSIDE RECORDS SUMMARY | 2021-10-24 07:39 | XMS_ITS | Encounter Summary ---
:1940 Author Organization [facility] [place] [address] Care Team Providers Name Role Phone Mar Viera APRN Primary Care Provider Reason for Visit Reason Onset Date Comments Medication Refill 03/15/2018 Encounter Details Date Type Department Care Team Description 03/15/2018 Refill G[facility]ology at [facility] Snow Orozco [facility] [place] [phone] Social History Tobacco Use Types Packs/Day Years Used Date Never Smoker Smokeless Tobacco: Never Used Alcohol Use Standard Drinks/Week Comments Yes 4 (1 standard drink = 0.6 oz pure alcoho l) Sex Assigned at Date Recorded Not on file documented as of this encounter Miscellaneous Notes Telephone Encounter - Snow Orozco, [facility] - 03/15/2018 1:36 PM EST ----- Message from KD Mireles sent at 03/15/2018 1:30 PM EST ----- Regarding: FW: Medication Alt? ----- Message ----- From: Sharifa Oconnor MD Sent: 03/15/2018 1:29 PM To: KD Mireles Subject: RE: Medication Alt? Yes, that would be great, thank you ----- Message ----- From: Linda Cordero LNA Sent: 03/15/2018 12:43 PM To: Sharifa Oconnor MD Subject: Medication Alt? Will not approve 20mg twice daily. Do you want her to take 40mg once daily? documented in this encounter Plan of Treatment Upcoming Encounters Date Type Specialty Care Team Description 12/17/2021 Office Visit Dermatology Orlando Borrero MD [address] [facility] DERMATOLOGY [place], [place] [address] (Wo rk) documented as of this encounter Visit Diagnoses Not on filedocumented in this encounter Care Teams Operations Technician Relationship Specialty Start Date End Date Mar Viera APRN PCP - General Internal Medicine 01/25/17 [address] [place] [address] documented as of this encounter
--- OUTSIDE RECORDS SUMMARY | 2021-10-24 07:39 | XMS_ITS | Encounter Summary ---
:1940 Author Organization [facility] [place] [address] Care Team Providers Name Role Phone Samson Chavarria MD Primary Care Provider [phone] Encounter Details Date Type Department Care Team Description 12/01/2015 Hospital Encounter Gastroenterology at [facility] [place] [address] [facility] [phone] [facility] [place], [place] [address] Social History Tobacco Use Types Packs/Day Years Used Date Never Smoker Alcohol Use Standard Drinks/Week Comments Yes 4 (1 standard drink = 0.6 oz pure alcoho l) Sex Assigned at Date Recorded Not on file documented as of this encounter Last Filed Vital Signs Vital Sign Reading Time Taken Comments Blood Pressure 159/70 12/01/2015 12:15 PM EDT Pulse 75 12/01/2015 11:45 AM EDT Temperature - - Respiratory Rate 17 12/01/2015 12:15 PM EDT Oxygen Saturation 97% 12/01/2015 12:15 PM EDT Inhaled Oxygen Concentration - - Weight 88.5 kg (195 lb) 12/01/2015 10:26 AM EDT Height 165.1 cm (5' 5) 12/01/2015 10:26 AM EDT Body Mass Index 32.45 12/01/2015 10:26 AM EDT documented in this encounter Discharge Instructions Discharge InstructionsYamilet Zeng RN - 12/01/2015 12:07 PM EDT Colonoscopy and polyp removal What to expect after the procedure You may feel a little more gassy or bloated than usual, this is normal. You should expect the return of normal bowel function in the next 2 to 3 days. Because some polyps were removed, you may see a little blood with the next few bowel movements, this should be a small amount ( less than a few tablespoons) and will resolve on it's own. ACTIVITY Because of the sedation that you received Your judgement and reaction time are effected ?? Go home and rest for the remainder for the day. You may resume your normal activities tomorrow ?? Change from one position to the next slowly because you may lose your balance unexpectedly. ?? Be careful on stairs, as you may be unsteady. ?? Avoid strenuous activity for 48 to 72 hrs FOR THE NEXT 24 HRS ?? DO NOT DRIVE OR OPERATE MACHINERY ?? DO NOT DRINK ALCOHOLIC BEVERAGES ?? DO NOT SIGN LEGAL DOCUMENTS ?? If you are a smoker: DO NOT SMOKE WHILE YOU ARE ALONE Diet ?? Start by eating small portions of foods that ordinarily will not upset your stomach, avoid gas producing foods for the next few days. ?? Be gentle with what you choose to start with ?? Drink plenty of fluids ( unless your doctor has told you not to). ?? A soft diet may be helpful for the next 3 days as this may help to keep the stools soft Medicines Avoid medicines that influence the way your blood clots for the next week. These would include anti-inflammatory medicine, such as ibuprofen( Advil, Motrin) and naproxen ( Aleve). If you need something for discomfort, Tylenol (Acetaminophen) is safe if used as directed. Your Doctor will tell you whento restart your prescribed blood thinners The IV site-- slight tenderness, or redness is normal, you can use warm compresses if you get concerned. If the tenderness +/or redness increases or foul drainage and a red streak occurs, please contact your PCP immediately. When should you call for help? Call 911 anytime you think you may need emergency care. For example If you pass out (loss of consciousness) If you pass maroon or bloody stools If you have severe belly pain Call your healthcare provider or seek immediate medical care if: Your stools are black or tar like Your stools have streaks of blood that is more pronounced with each BM You have belly pain, or your belly is swollen and firm You vomit You have a fever You are very dizzy Watch closely for changes in your health, and be sure to contact your doctor if you have any problems. Your Doctor will let you know when you will need your next colonoscopy. The results of your test andyour risk for colorectal cancer will help your doctor decide how often you need to be checked. Monday-Monday Same Day Endo [phone] Otherwise contact [phone] and ask to speak to the contracting support specialist monkey keeper Follow up care is a allen part of your treatment and safety. Be sure to make and go to all appointments, and call your doctor if you are having problems. Discharge instructions reviewed with patient who expresses understanding [facility] Colonoscopy: What to Expect at Home Your Recovery After you have a colonoscopy, you will stay at the clinic for 1 to 2 hours until the medicines wear off. Then you can go home. But you will need to arrange for a ride. Your doctor will tell you when you can eat and do your other usual activities. Your doctor will talk to you about when you will need your next colonoscopy. Your doctor can help you decide how often you need to be checked. This will depend on the results of your test and your riskfor colorectal cancer. After the test, you may be bloated or have gas pains. You may need to pass gas. If a biopsy was doneor a polyp was removed, you may have streaks of blood in your stool (feces) for a few days. This care sheet gives you a general idea about how long it will take for you to recover. But each person recovers at a different pace. Follow the steps below to get better as quickly as possible. How can you care for yourself at home? Activity ?? Rest when you feel tired. ?? You can do your normal activities when it feels okay to do so. Diet ?? Follow your doctor's directions for eating. ?? Unless your doctor has told you not to, drink plenty of fluids. This helps to replace the fluids that were lost during the colon prep. ?? Do not drink alcohol. Medicines ?? If polyps were removed or a biopsy was done during the test, your doctor may tell you not to takeaspirin or other anti-inflammatory medicines for a few days. These include ibuprofen (Advil, Motrin)and naproxen (Aleve). Other instructions ?? For your safety, do not drive or operate machinery until the medicine wears off and you can thinkclearly. Your doctor may tell you not to drive or operate machinery until the day after your test. ?? Do not sign legal documents or make major decisions until the medicine wears off and you can think clearly. The anesthesia can make it hard for you to fully understand what you are agreeing to. Follow-up care is a allen part of your treatment and safety. Be sure to make and go to all appointments, and call your doctor if you are having problems. It's also a good idea to know your test results and keep a list of the medicines you take. When should you call for help? Call 911 anytime you think you may need emergency care. For example, call if: ?? You passed out (lost consciousness). ?? You pass maroon or bloody stools. ?? You have severe belly pain. Call your doctor now or seek immediate medical care if: ?? Your stools are black and tarlike. ?? Your stools have streaks of blood, but you did not have a biopsy or any polyps removed. ?? You have belly pain, or your belly is swollen and firm. ?? You vomit. ?? You have a fever. ?? You are very dizzy. Watch closely for changes in your health, and be sure to contact your doctor if you have any problems. Where can you learn more? Visit our health information library at [email or web address] You can also view health information on [employer], your personal patient account. Log in or sign up today. Enter E264 in the search box to learn more about Colonoscopy: What to Expect at Home. ?? [id number] [employer]. Care instructions adapted under license by [facility]. This care instruction is for use with your licensed healthcare professional. If you have questionsabout a medical condition or this instruction, always ask your healthcare professional. [employer] disclaims any warranty or liability for your use of this information. Content Version: 10.4.985300; Current as of: January 31, 2014 documented in this encounter Medications at Time of Discharge Medication Sig Dispensed Refills Start Date End Date DIAZEPAM (VALIUM ORAL) Take by mouth. 0 hydrochlorothiazide Take 12.5 mg by 0 (HYDRODIURIL) 25 mg Tablet mouth daily. fluticasone (FLOVENT) 110 Inhale 1 puff 0 mcg/actuation Aerosol into the lungs 2 times daily. fluticasone (FLONASE) 50 1 spray daily. 0 mcg/actuation [place], Suspension losartan (COZAAR) 25 mg Take 100 mg by 0 10/13/2020 Tablet mouth daily. SIMVASTATIN ORAL Take by mouth. 0 08/18 documented as of this encounter H&P Notes Stefany Hartmann MD - 12/01/2015 11:01 AM EDT Gastroenterology and Hepatology Pre-Procedure History and Physical Exam Procedure: Colonoscopy: Indication: rectal bleeding PROBLEM LIST Patient Active Problem List Diagnosis Code ??? AK (actinic keratosis) L57.0 HISTORY OF PRESENT ILLNESS Joanie Larose is a 75 y.o. y/o who presents for colonoscopy to evaluate rectal bleeding. The patient states that she sees light pink blood on toilet paper when she wipes and wonders if its hemorrhoids. FH notable for mother with CRC age 79 and brother with polyps. Niece with Crohn's disease. MEDICATIONS No current facility-administered medications on file prior to encounter. Current Outpatient Prescriptions on File Prior to Encounter Medication Sig Dispense Refill ??? hydrochlorothiazide (HYDRODIURIL) 25 mg Tablet Take 25 mg by mouth daily. ??? fluticasone (FLOVENT) 110 mcg/actuation Aerosol Inhale 1 puff into the lungs 2 times daily. ??? fluticasone (FLONASE) 50 mcg/actuation [place], Suspension 1 spray daily. PHYSICAL EXAM: GEN: Alert, cooperative, pleasant and in NAD HEENT: Airway examined, oropharyngeal clear without lesions Mallampati Score: II (soft palate, uvula, fauces visible) Neck: Supple, no lymphadenopathy or masses LUNGS: Clear to auscultation HEART: Regular rate and rhythm, normal S1, S2 ABDOMEN: Normal bowel sounds, soft, non tender, non distended EXT: No clubbing, cyanosis or edenoma NEURO: No focal deficits RECENT LABS No results found for this or any previous visit (from the past 24 hour(s)). ASSESSMENT AND PLAN Joanie Larose is a 75 y.o. y/o who presents for endoscopy. Risks and benefits of the procedure explained to the patient. We discussed in depth possible risks include reaction to anesthesia, bleeding,infection, perforation, bruising of other organs in the body, and/or other unforseen complication. All of the patients questions were answered. Patient wishes to proceed and consent was signed. Proceed with the planned endoscopic procedure. ASA 2 - Patient with mild systemic disease with no functional limitations Sedation Plan: moderate (conscious sedation) Stefany Hartmann MD Gastroenterology attending Pager [phone] documented in this encounter Plan of Treatment Upcoming Encounters Date Type Specialty Care Team Description 12/17/2021 Office Visit Dermatology Orlando Borrero MD [address] [place] [address] DERMATOLOGY [place], [place] [address] (Wo rk) documented as of this encounter Procedures Procedure Name Priority Date/Time Associated Comments Diagnosis SURGICAL PATHOLOGY Routine 12/01/2015 11:55 Resul ts for this REPORT AM EDT procedure are i n the results section. SPECIMEN TO PATHOLOGY Routine 12/01/2015 11:55 Re sults for this AM EDT procedure are i n the results section. COLONOSCOPY, 12/01/2015 11:02 Rectal bleeding POLYPECTOMY, REMOVAL AM EDT LESION BY SNARE (WRVU 4.67) COLONOSCOPY, 12/01/2015 11:02 Rectal bleeding DIAGNOSTIC AM EDT COLONOSCOPY Routine 12/01/2015 10:58 Results for this AM EDT procedure are i n the results section. documented in this encounter Results Surgical Pathology Report (12/01/2015 11:55 AM EDT) Component Value Ref Test Analysis Performed At [facility] Method Time Signature Surgical [id number] ? Location: 4T; EA; A CHERYL Pathology MICKEY Report The signing pathologist has (i) examined the relevant preparation(s) for the [facility] specimen(s) and (ii) rendered or confirmed the diagnosis(es) . [facility] . ?Surgic al Pathology DIAGNOSIS Sigmoid colon, ??polypectomy: - Two hyperplastic polyps. ??Multiple deeper levels examined. CR-PX Electronically signed by: ??Jose Edmondson MD Verified: ??12/08/2015 ?Pathologist CLINICAL INFORMATION Specimen Submitted: A - Sigmoid colon polyps (diminutive) x2 Clinical History: Screening colonoscopy Clinical Diagnosis: Same SPECIMEN PROCESSING A - Labeled/Fixative: Sigmoid colon polyps and, formalin. Quantity/Size: Two, averaging 0.4 cm. Tissue Description: Polypoid, yellow-high tissues. Sections/Processing: (T1) ??ejr Specimen (Source) Anatomical Collection Method Collection Time Re ceived Time Location / / Volume Laterality 12/01/2015 11:55 AM EDT Stefany Hartmann MD PATHOLOGY/CYTOLOGY ORDERABLE S Performing Organization Address City/[facility]/ZIP Code Phon e Number [address] Specimen to Pathology (surgical or derm) (12/01/2015 11:55 AM EDT) Specimen Anatomical Collection Method Collection Time Receive d Time (Source) Location / / Volume Laterality AP Specimen 12/01/2015 11:55 12/01/2015 AM EDT 11:55 AM EDT Narrative [facility] - 12/01/2015 11:55 AM EDT Specimen requisition ordered. ??Separate Pathology report to follow Stefany Hartmann MD PATHOLOGY/CYTOLOGY ORDERABLE S Performing Organization Address City/State/ZIP [place] [address] COLONOSCOPY (12/01/2015 10:58 AM EDT) [facility] gist Method Time Signature COLONOSCOPY [facility] Endoscopy Procedure Date: 12/01/2015 10:58 AM ? Patient Name: Joanie Larose ? Date of : 1940 ? Age: 75 ? Order #: [id number] ? Instrument Name: [id number] ? Procedure: ? Colonoscopy Indications: ? Screening for colorectal malignant ? neoplasm Providers: ? Stefany Hartmann MD, Deidra Copeland ? Khalif, MD, Lakesha Jett RN, Opal ? Elliot Padilla, Photocopy Operator Referring MD: ?Samson Chavarria MD Medicines: ? Fentanyl 225 micrograms IV, Midazo subramanian ? 4.5 mg IV Complications: ? No immediate complications. Procedure: ? Pre-Anesthesia Assessment: ? - Prior to the procedure, a H istory ? and Physical was performed, a nd ? patient medications and aller gies ? were reviewed. The patient is ? competent. The risks and bene fits of ? the procedure and the sedatio n ? options and risks were discus sed with ? the patient. All questions we re ? answered and informed consent was ? obtained. Patient identificat ion and ? proposed procedure were verif ied by ? the physician in the pre-proc edure ? area in the endoscopy suite. Mental ? Status Examination: alert and ? oriented. Airway Examination: normal ? oropharyngeal airway and neck ? mobility. Respiratory Examina tion: ? clear to auscultation. CV ? Examination: normal. ASA Grad e ? Assessment: II - A patient wi th mild ? systemic disease. After revie wing the ? risks and benefits, the patie nt was ? deemed in satisfactory condit ion to ? undergo the procedure. The an esthesia ? plan was to use moderate leyda tion / ? analgesia (conscious sedation ). ? Immediately prior to administ ration ? of medications, the patient w as ? re-assessed for adequacy to r eceive ? sedatives. The heart rate, ? respiratory rate, oxygen satu rations, ? blood pressure, adequacy of p ulmonary ? ventilation, and response to care ? were monitored throughout the ? procedure. The physical statu s of the ? patient was re-assessed after the ? procedure. ? The procedure, indications, b enefits, ? risks and alternatives were e xplained ? to the patient. Specifically ? discussed were potential ? complications including, but not ? limited to, bleeding, perfora tion, ? infection, missing a cancer, and ? adverse medication reactions. The ? patient was placed in the lef t ? lateral decubitus position, a nd a ? digital rectal exam was perfo rmed. ? The Colonoscope was inserted in the ? anus and under direct visuali zation, ? advanced to the cecum, identi fied by ? appendiceal orifice and ileoc ecal ? valve. Careful inspection was made as ? the colonoscope was withdrawn . The ? colonoscopy was performed wit hout ? difficulty. The patient fabián ated the ? procedure well. The quality o f the ? bowel preparation was evaluat ed using ? the BBPS (Moody Bowel Prepar ation ? Scale) with scores of: Right Colon = ? 2, Transverse Colon = 3 and L eft ? Colon = 2. The total BBPS sco re ? equals 7. The quality of the bowel ? preparation was good. Scope ? withdrawal time was 17 minute s. ? Findings: ? The perianal exam findings include non-thrombosed ? external hemorrhoids. Retroflexed views of the rectum ? were attempted but not performed due to narrowed ? rectum. ? A 4 mm polyp was found in the sigmoid colon. The ? polyp was sessile. The polyp was removed with a cold ? snare. Resection and retrieval were complete. ? A 5 mm polyp was found in the sigmoid colon. The ? polyp was sessile. The polyp was removed with a cold ? snare. Resection and retrieval were complete. ? Multiple large-mouthed diverticula were found in the ? sigmoid colon, in the descending colon and in the ? ascending colon. ? Impression: ?- Non-thrombosed external hemorrho ids ? found on perianal exam. ? - One 4 mm polyp in the sigmo id ? colon. Resected and retrieved . ? - One 5 mm polyp in the sigmo id ? colon. Resected and retrieved . ? - Diverticulosis in the sigmo id ? colon, in the descending colo n and in ? the ascending colon. Recommendation: ?- Await pathology results. ? - If pathology shows adenomas , ? consider repeat colonoscopy f or ? surveillance if health permit s ? however risks may outweigh be nefits ? at that time given age and ? co-morbidities. ? - High fiber diet (5 servings of ? fresh fruits, vegetables and whole ? grains daily). ? Stefany Hartmann MD 12/01/2015 11:59:59 AM Number of Addenda: 0 Note Initiated On: 12/01/2015 10:58 AM Specimen (Source) Anatomical Collection Method Collection Time Re ceived Time Location / / Volume Laterality 12/01/2015 10:58 AM EDT Samson Chavarria MD GENERAL SURGICAL ORDERABLES Performing Organization Address City/State/ZIP Code Phon e Number [employer] documented in this encounter Visit Diagnoses Not on filedocumented in this encounter Active and Recently Administered Medications Times are shown in EDT. PRN Medication Order 11/29/2015 11/30/2015 12/01/2015 fentaNYL 50 mcg/mL multi-dose injection (CANCELED) 7139 (Given - Provider: Hakeem Arroyo RN)1112 (Given - Provider: Hakeem Arroyo, RN)1117 (Given - Provider: Hakeem Arroyo RN)1120 (Given - Provider: Hakeem Arroyo, RN)1131 (Given - Provider: Hakeem Arroyo RN) ONCE PRN, Starting 12/01/15 at 1109, Until Tu12/01/15 at 1436, Intra- Operative (Intra-Procedure), Routine midazolam (PF) (VERSED) 1 mg/mL multi-dose injection (CANCELED) 1109 (Given - Provider: Hakeem Arroyo, RN)1112 (Given - Provider: Hakeem Arroyo, RN)1117 (Given - Provider: Hakeem Arroyo RN)1120 (Given - Provider: Hakeem Arroyo RN)1131 (Given - Provider: Hakeem Arroyo, RN) ONCE PRN, Starting 12/01/15 at 1109, Until Mon12/01/15 at 1436, Intra- Operative (Intra-Procedure), Routine documented in this encounter Care Teams Branch Service Leader Relationship Specialty Start Date End Date Samson Chavarria MD PCP - General 02/09/10 12/27/16 [address] [place] [address] documented as of this encounter
--- OUTSIDE RECORDS SUMMARY | 2021-10-24 07:39 | XMS_ITS | Encounter Summary ---
:1940 Author Organization [facility] [place] [address] Care Team Providers Name Role Phone Samson Chavarria MD Primary Care Provider [phone] Encounter Details Date Type Department Care Team Description 12/01/2015 Surgery Gastroenterology [place] [facility] Stefany Hartmann COLONOSCOPY, [facility] [place] [address] [facility] [phone] DR GASTROENTEROLOGY [place] [id number] Social History Tobacco Use Types Packs/Day Years [...] to be checked. Monday-Monday Same Day Endo [phone]-[id number] Otherwise contact [phone] and ask to speak to the artist's model production line assembler Follow up care is a allen part of your treatment and safety. Be sure to make and go to all appointments, and call your doctor if you are having problems. Discharge instructions reviewed with patient who expresses understanding [facility] Colonoscopy: What to Expect at Home Your [...] more? Visit our health information library at [email or web address] You can also view health information on [employer], your personal patient account. Log in or sign up today. Enter E264 in the search box to learn more about Colonoscopy: What to Expect at Home. ?? [id number] SmartRx, Liquid Bronze. Care instructions adapted under license by [facility]. This care instruction is for use with your licensed healthcare professional. If you have questionsabout a medical condition or this instruction, always ask your healthcare professional. [employer] disclaims any warranty or liability for your use of this information. Content Version: 10.4.236797; Current as of: January 31, 2014 documented [...] (FLONASE) 50 1 spray daily. 0 mcg/actuation O[place], Suspension losartan (COZAAR) 25 mg Take 100 [...] times daily. ??? fluticasone (FLONASE) 50 mcg/actuation [place], Suspension 1 spray daily. PHYSICAL EXAM: GEN: [...] sedation) Stefany Hartmann MD Gastroenterology attending Pager [phone] documented in this encounter Plan of Treatment Upcoming Encounters Date Type Specialty Care Team Description 12/17/2021 Office Visit Dermatology Orlando Borrero MD [address] [facility] DERMATOLOGY [place], [place] [address] (Wo rk) documented as [...] Component Value Ref Test Analysis Performed At [facility] Range Method Time Signature Surgical [id number] ? Location: 4T; EA; [facility] Report The signing pathologist has (i) examined [...] Organization Address City/State/ZIP Code Phon e Number [address] Specimen to Pathology (surgical or derm) (12/01/2015 11:55 AM EDT) Specimen Anatomical Collection Method Collection Time Receive d Time (Source) Location / / Volume Laterality AP Specimen 12/01/2015 11:55 12/01/2015 AM EDT 11:[address] [facility] - 12/01/2015 11:55 AM EDT Specimen requisition ordered. ??Separate Pathology report to follow Stefany Hartmann MD PATHOLOGY/CYTOLOGY ORDERABLE S Performing Organization Address City/State/[place] [address] COLONOSCOPY (12/01/2015 10:58 AM EDT) [facility] gist Method Time Signature COLONOSCOPY [facility] Endoscopy Procedure Date: 12/01/2015 10:58 AM ? Patient Name: Joanie Larose ? Date of : 1940 ? Age: 75 ? Order #: [id number] ? Instrument Name: [id number] ? Procedure: ? Colonoscopy Indications: ? Screening for colorectal malignant ? neoplasm Providers: ? Stefany Hartmann MD, Deidra Copeland ? MD Khalif, Lakesha Jett, RN, Opal ? Elliot Padilla, Instructor Apparel Manufacture Referring MD: ?Samson Chavarria MD Medicines: ? [...] was evaluat ed using ? the BBPS ([place] Bowel Prepar ation ? Scale) with scores [...] Diagnoses Not on filedocumented in this encounter Administered Medications Inactive Administered Medications - up to 3 most recent administrations Medication Order MAR Action Action Date Dose Rate Site fentaNYL 50 mcg/mL multi-dose Given 12/01/2015 11:31 AM EDT 25 m cg injection ONCE PRN, Starting on e 12/01/15 at 1109, Until Mon12/01/15 at 1436, Intra-Operative (Intra-Procedure), Routine Given 12/01/2015 11:20 AM EDT 50 mcg Given 12/01/2015 11:17 AM EDT 50 mcg midazolam (PF) (VERSED) 1 mg/mL multi-dose Given 12/01/2015 11:31 AM EDT 0.5 mg injection ONCE PRN, Starting on Mon12/01/15 at 1109, Until Mon12/01/15 at 1436, Intra-Operative (Intra-Procedure), Routine Given 12/01/2015 11:20 AM EDT 1 mg Given 12/01/2015 11:17 AM EDT 1 mg documented in this encounter Active and Recently Administered Medications Times are shown in EDT. PRN Medication Order 11/29/2015 11/30/2015 12/01/2015 fentaNYL 50 mcg/mL multi-dose injection (CANCELED) 1109 (Given - Provider: Hakeem Arroyo RN)1112 (Given - Provider: Hakeem Arroyo RN)1117 (Given - Provider: Hakeem Arroyo RN)1120 (Given - Provider: Hakeem Arroyo RN)1131 (Given - Provider: Hakeem Arroyo RN) ONCE PRN, Starting e 12/01/15 at 1109, Until Mon12/01/15 at 1436, Intra- Operative (Intra-Procedure), Routine midazolam (PF) (VERSED) 1 mg/mL multi-dose injection (CANCELED) 1109 (Given - Provider: Hakeem Arroyo RN)1112 (Given - Provider: Hakeem Arroyo RN)1117 (Given - Provider: Hakeem Arroyo RN)1120 (Given - Provider: Hakeem Arroyo, RN)1131 (Given - Provider: Hakeem Arroyo RN) ONCE PRN, Starting e 12/01/15 at 1109, Until Mon12/01/15 at 1436, Intra- Operative (Intra-Procedure), Routine documented in this encounter Care Teams Audiologist Relationship Specialty Start Date End Date Samson Chavarria MD PCP - General 02/09/10 12/27/16 [address] [place] [address] documented as of this encounter
--- OUTSIDE RECORDS SUMMARY | 2021-10-24 07:39 | XMS_ITS | Encounter Summary ---
:1940 Author Organization [place] [address] Care Team Providers Name Role Phone Mar Viera APRN Primary Care Provider Encounter Details Date Type Department Care Team Description 03/15/2018 Telephone Gastroenterology at [facility] Sharifa [place]connor [place] [address] GASTROENTEROLOGY DEPT [phone] [place], [place] [address] (Wo rk) Social History Tobacco Use Types Packs/Day Years Used Date Never Smoker Smokeless Tobacco: Never Used Alcohol Use Standard Drinks/Week Comments Yes 4 (1 standard drink = 0.6 oz pure alcoho l) Sex Assigned at Date Recorded Not on file documented as of this encounter Miscellaneous Notes Telephone Encounter - Sharifa Oconnor MD - 03/15/2018 1:33 PM EST Spoke with Ms. Larose about her recent lab work: no evidence of peripheral eosinophilia. She remainssymptom free, plans to start taking PPI as soon as she picks it up from the pharmacy. documented in this encounter Plan of Treatment Upcoming Encounters Date Type Specialty Care Team Description 12/17/2021 Office Visit Dermatology Orlando Borrero MD [address] [facility] DERMATOLOGY [place], [place] [address] (Wo rk) documented as of this encounter Visit Diagnoses Not on filedocumented in this encounter Care Teams Quarter Trimmer Relationship Specialty Start Date End Date Mar Viera APRN PCP - General Internal Medicine 01/25/[address] [place] [address] documented as of this encounter
--- OUTSIDE RECORDS SUMMARY | 2021-10-24 07:39 | XMS_ITS | Encounter Summary ---
:1940 Author Organization [facility] [place] [address] Care Team Providers Name Role Phone Mar Viera APRN Primary Care Provider Reason for Visit Consultation (Routine) - Specialty Diagnoses / Procedures Referred By Contact Refer red To Contact Gastroenterology Diagnoses EOSINOPHILIC GASTRITIS , NAUSEA AND VOMITING Mar Viera APRN [facility] [address] [place] [place] [id number] [place] [phone] Fax: Referral ID Status Reason Start Date Expiration Date Visits V isits Requested Authorized [id number] Consult, 01/01/2018 01/01/2019 1 1 [facility] Encounter Details Date Type Department Care Team Description 03/12/2018 Office Visit Gastroenterology at [facility] Sharifa Oconnor, Eosinophilic [facility] Blaine bloom MD esophagitis ([place] [address] [facility]) [phone] [place] [address] Social History Tobacco Use Types Packs/Day Years Used Date Never Smoker Smokeless Tobacco: Never Used Alcohol Use Standard Drinks/Week Comments Yes 4 (1 standard drink = 0.6 oz pure alcoho l) Sex Assigned at Date Recorded Not on file documented as of this encounter Last Filed Vital Signs Vital Sign Reading Time Taken Comments Blood Pressure 170/70 03/12/2018 12:46 PM EST Pulse 67 03/12/2018 12:46 PM EST Temperature - - Respiratory Rate - - Oxygen Saturation - - Inhaled Oxygen Concentration - - Weight 88.7 kg (195 lb 8 oz) 03/12/2018 12:46 PM EST Height 165.1 cm (5' 5) 03/12/2018 12:46 PM EST Body Mass Index 32.53 03/12/2018 12:46 PM EST documented in this encounter Progress Notes Sharifa Oconnor MD - 03/12/2018 1:00 PM EST [facility] Division of Gastroenterology and Hepatology Outpatient Consultation Reason for Visit: dysphagia, eosinophilic gastritis Referred by Mar Viera History of Present Illness: Joanie Larose is a 77-year-old woman with HTN, HLD, asthma, and GERD, 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 She's had many years of reflux symptoms, which responded well to a PPI 15-20 years ago but then recurred after she stopped the medication. She also reports several years of occasional dysphagia to solid/dry foods. These episodes would always resolve spontaneously. She was started on Zantac 300 mg BID with some improvement in symptoms last year, and then referred for an EGD which she underwent in July at [facility]. The EGD was significant for gastritis, which was biopsied. 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 No biopsies of the esophagus were taken, and per report the esophagus appeared normal on exam. Since then, she has continued to take BID Zantac. She has had no further episodes of dysphagia. She does continue to have reflux symptoms 2-3 times a week. No fevers/chills, no weight loss (had lost several pounds earlier in the year while on a diet, which was intentional), no nausea/vomiting, no other systemic symptoms. No NSAID use, no heavy ETOH use. Review of Systems: Constitutional: No weight loss [...] DIAGNOSTIC performed by Stefany Hartmann MD at [facility] ENDOSCOPY ??? PRO COLONOSCOPY, REMV LESN, SNARE N/A 12/01/2015 COLONOSCOPY, POLYPECTOMY, REMOVAL LESION BY SNARE performed by Stefany Hartmann MD at [facility] ENDOSCOPY Social History: reports that has never smoked. She does not have any smokeless tobacco history on file. She reports that she drinks about 2.4 oz of alcohol per week. She reports that she does not use drugs. Family History: Father of colon cancer, brother with malignant polyps. She had been undergoing q3 year colonoscopies because of this history, last in 2015, but with no further plans for surveillance. No other family history of GI malignancy. Current Outpatient Medications Medication Sig Dispense Refill ??? losartan (COZAAR) 25 mg Tablet Take 25 mg by mouth daily. ??? SIMVASTATIN ORAL Take by mouth. ??? DIAZEPAM (VALIUM ORAL) Take by mouth. ??? hydrochlorothiazide (HYDRODIURIL) 25 mg Tablet Take 25 mg by mouth daily. ??? fluticasone (FLOVENT) 110 mcg/actuation Aerosol Inhale 1 puff into the lungs 2 times daily. ??? fluticasone (FLONASE) 50 mcg/actuation [place], Suspension 1 spray daily. No current facility-administered medications for this visit. Allergies Allergen Reactions ??? Codeine ??? Sulfa (Sulfonamide Antibiotics) Physical Examination: BP 170/70 Pulse 67 Ht 165.1 cm (5' 5) Wt 88.7 kg (195 lb 8 oz) BMI 32.53 kg/m?? General: NAD HEENT: NC/AT, PERRL, anicteric sclera, MMM, no erythema or exudate Neck: soft, supple, no cervical LAD Chest: CTAB CVS:RRR, normal s1/s2, No MRG ABD: soft, NABS, NT/ND, No hepatosplenomegaly appreciated Rectal: Deferred Extremities: Warm and well perfused. No clubbing, cynanosis or edema Skin:No rash or lesion Neuro: AAOx3, Grossly non-focal. Labs: Reviewed in EDH/Scan Docs No results found for: WBC, HGB, HCT, MCV, PLATELET Chemistry No results found for: NA, K, CL, CO2, BUN, CREATININE No results found for: CALCIUM, ALKPHOS, AST, ALT, BILITOT No results found for: ALT, AST, GGT, ALKPHOS, BILITOT Past Endoscopy: EGD 08/01/17: [facility] Findings: severe inflammation throughout the stomach. No ulcerations were noted. The duodenum was normal. The esophagus was normal. The GE junction was at 35 cm. Pathology: eosinophilic gastritis Colonoscopy 12/01/15: Impression: ??- Non-thrombosed external hemorrhoids [...] woman with HTN, HLD, asthma, and GERD, referred to Gastroenterology Clinic for diagnosisof eosinophilic gastritis and ongoing reflux symptoms. Fortunately she is no longer having dysphagia. She may have elevated eosinophils in the setting of untreated inflammation: we recommend a trial ofBID PPI for her symptoms as the next step in management, and avoidance of all NSAIDs. Given her asthma history as well as intermittent dysphagia, she could have eosinophilic esophagitis/gastrititis (noesophageal biopsies were taken on her EGD), and if her symptoms don't improve on a BID PPI, would recommend swallowed budesonide as the next step in management, in addition to consideration of referralto an tailer in to discuss a food elimination diet. Although less likely, will also check a CBC w/dif today to evaluate for peripheral eosinophilia. RECOMMENDATIONS: - CBC w/ dif to evaluate for peripheral eosinophilia - start BID PPI - stop ranitidine - avoid all NSAIDs - if symptoms don't improve over the next several months, recommend swallowed budesonide as the nextstep in management - if dysphagia returns, or if she develops any worrisome symptoms such as unintentional weight loss,would recommend repeat EGD with biopsies Follow up in GI clinic in 3-4 months, sooner if needed This patient was discussed with the attending, Dr. Zhu, at the time of her visit. Sharifa Oconnor MD Fellow [place] [address] P: [phone] F: [phone] CC Mar Viera, BLOOD SPLATTER ANALYST [address] [place] [address] Bradley Zhu MD - 03/12/2018 1:00 PM EST I discussed the care of Ms. Wilkinson with Dr. Oconnor and I agree with the assessment and plan as outlined in the note from today. documented in this encounter Plan of Treatment Upcoming Encounters Date Type Specialty Care Team Description 12/17/2021 Office Visit Dermatology Orlando Borrero MD [address] [facility] DERMATOLOGY [place], [place] [address] (Wo rk) documented as of this encounter Procedures Procedure Name Priority Date/Time Associated Diagnosis Comme nts HEMOGRAM Routine 03/12/2018 1:35 PM Eosinophilic Results f or this EST esophagitis procedure are i n the results section. DIFFERENTIAL, Routine 03/12/2018 1:35 PM Eosinophilic Results for this AUTOMATED EST esophagitis procedure are i n the results section. CBC (WITH DIFF) Routine 03/12/2018 1:35 PM Eosinophilic EST esophagitis documented in this encounter Results (ABNORMAL) Differential, Automated (03/12/2018 1:35 PM EST) [facility] Method Time Signature Neutrophils % 60.4 % [facility] Neutr Abs (ANC) 6.14 (H) 1.70 - [facility] 6.10 [facility] x10(3)/[facility] LABORATORY Lymphocytes % 27.3 % [facility] Lymphocytes Abs 2.8 0.9 - 3.2 [facility] x10(3)/[facility] LABORATORY Monocytes % 8.0 % [facility] Monocyte Abs 0.8 0.3 - 0.9 [facility] x10(3)/[facility] LABORATORY Eosinophils % 3.2 % [facility] Eosinophils Abs 0.3 0.0 - 0.4 [facility] x10(3)/[facility] LABORATORY Basophils % 0.7 % [facility] Basophils Abs 0.1 0.0 - 0.1 [facility] x10(3)/[facility] LABORATORY Immature Gran % 0.40 % [facility] Comment: Immature granulocytes(IG's)percentage an d absolute count will include metamyelocytes, myelocytes, and promyelo cytes. Blood smears from CBCs yielding IG's will be scanned manually for concor dance. If this scan disagrees with the automated IG or if promyelocytes are not ed, a manual differential will be performed. Sujata Gran Abs 0.04 0.00 - 0.04 x10(3)/[facility] MAR Y [facility] LABORATORY Specimen Anatomical Collection Method Collection Time Receive d Time (Source) Location / / Volume Laterality Blood specimen 03/12/2018 1:35 PM 018 1:51 (specimen) EST PM EST Resulting Agency Comment Spec In Lab Sharifa Oconnor MD HEMATOLOGY ORDERABLES Performing Organization Address City/State/[place] [address] (ABNORMAL) Hemogram (03/12/2018 1:35 PM EST) Analysis Performed At Patho logist Time Signature WBC 10.2 (H) 4.0 - 9.5 [facility] x10(3)/[facility] LABORATORY RBC 4.29 4.00 - [facility] 5.21 [facility] x10(6)/[facility] LABORATORY Hemoglobin 13.0 11.7 - [facility]dL [facility] Hematocrit 38.5 35.7 - [facility] 45.8 % [facility] MCV 89.7 82.6 - [facility] 94.4 [facility] LABORATORY MCH 30.3 27.1 - [facility] 32.0 pg [facility] MCHC 33.8 31.7 - [facility] 35.0 gm/dL [facility] Platelets 311 145 - 357 [facility] x10(3)/[facility] LABORATORY RDWSD 43.0 37.0 - [facility] MICKEY 46.0 [facility] LABORATORY RDWCV 13.2 11.5 - [facility]KEY 14.1 % [facility] MPV 11.1 7.6 - 12.9 [facility] LABORATORY nRBC % Auto 0.0 % [facility] nRBC Abs Auto 0.000 0.000 - [facility] 0.000 [facility] x10(3)/[facility] LABORATORY Specimen Anatomical Collection Method Collection Time Receive d Time (Source) Location / / Volume Laterality Blood specimen 03/12/2018 1:35 PM 018 1:51 (specimen) EST PM EST Resulting Agency Comment Spec In Lab Sharifa Oconnor MD HEMATOLOGY ORDERABLES Performing Organization Address City/State/[place] [address] documented in this encounter Visit Diagnoses Diagnosis Eosinophilic esophagitis - Primary documented in this encounter Care Teams Quarry Supervisor Open Pit Relationship Specialty Start Date End Date Mar Viera APRN PCP - General Internal Medicine 01/25/[address] [place] [address] documented as of this encounter
== END 2021-10-11 07:36 | disposition home or self-care (01) ==
LOC: LBO 10-24 07:36
PROVIDERS: PCP Nurse Practitioner; Visit Provider Surgery
DX: R11.2 Nausea with vomiting, unspecified (principal); K52.81 Eosinophilic gastritis or gastroenteritis; E86.0 Dehydration
CPT/HCPCS: 99215

== ENCOUNTER 2021-10-12 03:21 | Outpatient (CLI) | payer MEDICARE, OTHER, SELFPAY | END 2021-10-12 03:22 | disposition home or self-care (01) | LOC: LBO 03:21 | PROVIDERS: PCP Nurse Practitioner; Visit Provider Surgery ==

== ENCOUNTER 2021-10-14 09:03 | Day surgery (SDC) | payer MEDICARE, OTHER, SELFPAY ==
[2021-10-14 09:15] VITALS: BP 185/65; PULSE 65; RESP 16; TEMP 36.5; O2SAT 100
--- NOTE | 2021-10-14 09:31 | ANES.PREOP_ITS ---
General Info Date of Service Date Performed: 10/14/21 Height: 5 ft 6 in Weight: 73.8 kg Body Mass Index (BMI): 26.2 Surgical Procedure: Operation Date: 10/14/21 10:35 Proposed Procedure Side Surgeon p Gastroscopy Reid Mason MD Meds Allergies and Home Medications Allergies Allergy/AdvReac Type Severity Reaction Status Date / Time mushroom Allergy Severe Anaphylaxsi Verified 10/14/21 09:14 s codeine Allergy Unknown as child Verified 10/14/21 09:14 Sulfa (Sulfonamide Allergy Unknown as child Verified 10/14/21 09:14 Antibiotics) lisinopril AdvReac Mild cough Verified 10/14/21 09:14 simvastatin AdvReac Mild 01/22/2017 Verified 10/14/21 09:14 joint pain Home Medication Medication Instructions Recorded ascorbic acid (vitamin C) 500 mg 500 mg PO DAILY 06/18/12 tablet ucfnysg-I9-hcg-Nt-nmykn-lhdf-boron 1 ea PO DAILY 06/18/12 600 mg-200 unit-40 mg-7.5 mg tablet vitamin B complex 1 ea PO DAILY 06/18/12 Lactobacillus comb 1 ea PO DAILY 10/24/14 no.6-TXX-ocgzdagbcr 300 million cell-250 mg capsule (Probiotic and Acidophilus) cholecalciferol (vitamin D3) 25 1,000 unit PO DAILY 01/25/17 mcg (1,000 unit) tablet aspirin 81 mg tablet,delayed 81 mg PO Q48H 07/09/18 release (Adult Low Dose Aspirin) fluticasone propionate 50 50 mcg NS DAILY #1 unit 03/30/20 mcg/actuation nasal spray,suspension atorvastatin 10 mg tablet 10 mg PO DAILY #90 tabs 11/18/20 fluticasone propionate 110 1 puff inhalation BID #36 grams 02/09/21 mcg/actuation HFA aerosol inhaler (Flovent HFA) meclizine 25 mg tablet 25 mg PO DAILY PRN vertigo #20 tabs 04/07/21 hydrochlorothiazide 25 mg tablet 25 mg PO DAILY #90 tabs 04/13/21 blood sugar diagnostic #100 ea 07/06/21 lancets 33 gauge (OneTouch Delica #50 ea 07/06/21 Lancets) sucralfate 1 gram tablet (Carafate) 1 gm PO QACHS #14 tabs 09/21/21 ondansetron 4 mg disintegrating 4 mg PO TID PRN nausea and 09/24/21 tablet vomiting #10 tabs pantoprazole 40 mg tablet,delayed 40 mg PO DAILY #90 tabs 09/28/21 release losartan 100 mg tablet 100 mg PO DAILY #90 tab-caps 10/04/21 potassium chloride 20 mEq See Rx Instructions PO DAILY #36 10/12/21 tablet,extended release tabs PFSH Active Problems Active Problems: Problem Status Onset Code Indigestion K30 Belching R14.2 Dyspepsia R10.13 Nausea R11.0 Postprandial nausea R11.0 Hypokalemia E87.6 ALBARRAN (dyspnea on exertion) R06.00 Diabetes mellitus E11.9 Eosinophilic gastritis K52.81 Abdominal bloating R14.0 Gastroesophageal reflux disease 07/19/11 K21.9 Medical History Medical History Asthma Intermittent asthma. 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 Esophageal reflux (07/19/11) Essential hypertension (07/06/12) FRS 25% Gallstone pancreatitis Gallstone pancreatitis (10/26/12) lap cholecystectomy 09/2012 Dr Cox GERD (gastroesophageal reflux disease) Grief Hyperlipidemia June 2012-Total cholesterol 232; triglycerides 147; LDL 148 and HDL 52--todays labs pending. Hyperlipidemia (07/06/12) PCEq 15%; baseline LDL 149 Impaired fasting glucose (07/19/11) Insomnia Internal hemorrhoids Low back pain Obesity Stage I obesity with a BMI of 31 .0 Osteoarthritis Osteoarthrosis (10/22/13) in Knee per Dr[facility] Neville at [facility] Osteopenia (01/09/12) DEXA 12/2011 NL except forearm T -1.3 Pancreatitis (10/09/12) irst episode of pancreatitis of uncertain etiology. PTSD (post-traumatic stress disorder) Skin lesions Vertigo (05/08/15) Surgical History Surgical History Cholecystectomy (10/11/12) EGD - MAC (08/01/17) H/O surgical procedure a. appendectomy as a child b. lap brock 2013 after having gallstone pancreatitis History of appendectomy Tobacco Smoking/Tobacco Use Status: Former Tobacco Use Alcohol Alcohol Intake: current Alcohol intake frequency: holidays/special occasions only Substance Use Substance use: Never Substance use type: does not use Vital Signs and Lab Results Vital Signs Most Recent Vital Signs in EMR: Most Recent Vital Signs Temp Pulse Resp BP Pulse Ox 36.5 C 65 16 185/65 H 100 10/14/21 09:15 10/14/21 09:15 10/14/21 09:15 10/14/21 09:15 10/14/21 09:15 Lab Results Blood Type / Crossmatch: No Data to Display Complete Blood Count: White Blood Count 8.73 10^3/uL (4.4-10.8) 09/24/21 13:46 Red Blood Count 4.56 10^6/uL (3.93-5.22) 09/24/21 13:46 Hemoglobin 13.9 g/dL (11.2-15.7) 09/24/21 13:46 Hematocrit 40.0 % (36.0-46.0) 09/24/21 13:46 Platelet Count 316 10^3/uL (130-400) 09/24/21 13:46 Complete Metabolic Panel: Sodium Level 142 mmol/L (136-145) 10/11/21 08:31 Potassium Level 2.8 mmol/L (3.5-5.1) L* 10/11/21 08:31 Chloride Level 104 mmol/L (98-107) 10/11/21 08:31 Carbon Dioxide Level 28.9 mmol/L (21.0-32.0) 10/11/21 08:31 Blood Urea Nitrogen 13 mg/dL (7-18) 10/11/21 08:31 Creatinine 1.2 mg/dL (0.55-1.02) H 10/11/21 08:31 Estimated GFR/1.73 m2 43.12 (mL/min/1.73m2) 10/11/21 08:31 Magnesium Level 1.9 mg/dL (1.8-2.4) 09/21/21 11:18 Calcium Level 9.0 mg/dL (8.5-10.1) 10/11/21 08:31 Albumin 3.6 g/dL (3.4-5.0) 10/11/21 08:31 Glucose Level 137 mg/dL (74-106) H 10/11/21 08:31 Hemoglobin A1c 6.5 % (<5.7) H 10/11/21 08:31 Liver Function Panel: Alanine Aminotransferase (ALT/SGPT) 19 U/L (14-59) 10/11/21 08: 31 Aspartate Amino Transf (AST/SGOT) 14 U/L (15-37) L 10/11/21 08: 31 Coagulation Panel: No Data to Display Cardiac Panel: Troponin I < 50 ng/L (<or=60) 09/21/21 Arterial Blood Gas: No Data to Display Venous Blood Gas: No Data to Display Pancreas Panel: Lipase 82 U/L (73-393) 09/24/21 13:46 Thyroid Panel: No Data to Display Infectious Disease: Coronavirus (COVID-19)(PCR) Negative (Negative) 10/11/21 14:30 Coronavirus 2019 Source Nasal/Nares 10/11/21 14:30 Blood Cultures: No Data to Display Toxicology Panel: No Data to Display Imaging and Studies Imaging and Studies Study information below may be from another EMR and interpreted by another provider. Please see original notes in EMR for more complete details. EKG Summary: DATE/TIME OF SERVICE: 09/21/21 0957 : 1PERFORMING LOCATION: ER APPROVED REPORT Exam: Resting ECG Reason for Exam: epigastric pain Patient Location: E HR:60 bpm ECG Measurements Heart Rate 60 AXIS WA 199 P 53 QRSd 85 QRS 49 QT 408 T32 QTc 406 Conclusion Sinus rhythm...normal P axis, V-rate 60- 99. Stress Test Summary: 09/07: Clinical Reason for Termination: Fatigue, Dyspnea Stress Symptoms: Dyspnea Exercise duration: 6 min03 sec Highest Stage Reached: Stage 2: 2.5 mph at 12% grade. Exercise capacity: 7.1 METs Rate Pressure Product: 75200 Stress ECG Conclusion 1. The patient exercised for 6 minutes (7 METS). The patient's blood pressure and heart rate augmented appropriately. 2. Baseline T wave abnormalities make this ECG portion of the exam nondiagnostic. MPI Conclusion Patient's ejection fraction was 66% with stress. There were no wall motion abnormalities. There was no evidence of ischemia on the imaging portion of the exam. This represents a normal SPECT stress test. Anesthesia Assessment and Plan Anesthesia History Personal History: No History of Anesthesia Complications Family History: No Family History of Anesthesia Complications Exercise Tolerance Exercise Tolerance: Metabolic Equivalents>4 Pertinent Negatives Pertinent Negatives: No Symptoms of GERD and No Major Cardiovascular Symptoms or Complaints Cardiac & Pulmonary Exam Cardiac Exam: Normal S1/S2 Heart Sounds Pulmonary Exam: Clear Bilateral Breath Sounds Implantable Cardiac Device Does patient have a Pacemaker or an ICD?: No Airway Exam Known Difficult Airway: No Mallampati Class: 1 Mouth Opening: Normal (> 3cm) Thyromental Distance: Greater than 3 cm Neck Range of Motion: Full ROM Neck Circumference: Normal Teeth Condition: Removable Dentures/Plates Upper and Removable Dentures/Plates L zacharyer ASA Classification ASA Score: ASA 2 Emergency Case?: No NPO Status NPO Status: NPO Clears >2 hours, Solids >8 hours Anesthesia Plan Resuscitation Status: Full Code Anesthesia Technique: General Anesthesia Airway Planned: Natural Airway Monitors Used: Standard Monitors
[2021-10-14 09:35] VITALS: BMI 26.2
[2021-10-14] MEDS: Lactated Ringers 1,000 ML 80 ML IV (09:38)
--- NOTE | 2021-10-14 10:55 | STOM_PTH ---
PATIENT: Joanie Larose LOC: [facility] U#:[id number] AGE/SX: 81/F ROOM: RE10/14/[address]: Reid Mason MD : [id number] BED: DIS: 10/14/2021 SPEC #: [id number] RECD: 10/14/21 13:01 STATUS: TIFFANIE RE #: [id number] NELLY: 10/14/21 10:[address]: Reid Mason DEPT: Surgical Specimen RECD BY: Kezia Guajardo ENTERED: 10/14/21 13:04 SP TYPE: STOMACH OTHR DR: Mar Viera APRN Tissues: 1 - STOMACH BIOPSY 2 - STOMACH BIOPSY 3 - ESOPHAGUS BIOPSY Procedures: GROSS AND MICRO LEVEL 4 Comments: [id number]
[2021-10-14 11:04] VITALS: BP 161/66; PULSE 74; RESP 17; TEMP 36.3; O2SAT 98
--- NOTE | 2021-10-14 11:10 | W.PM.ENDDOP ---
Date of service: 10/14/21 Time of Service: 11:10 Endoscopy Report DATE OF PROCEDURE: 10/14/21 PRE-OP DIAGNOSIS: esophagitis POST-OP DIAGNOSIS: other (gastric polyp) PROCEDURE: EGD SURGEON: Reid Mason ANESTHESIA TYPE: General:No Airway ESTIMATED BLOOD LOSS: 25 PATHOLOGY: other (gastric biopsies, GE junction polyp) COMPLICATIONS: None DISPOSITION: same day INDICATIONS: esophagitis PROCEDURE START TIME: 10:51 PROCEDURE END TIME: 11:00 COLONOSCOPY RETRACTION TIME: 9 FINDINGS: Polyp at the gastroesophageal junction PROCEDURE DESCRIPTION: After the initiation of monitored anesthetic care, and with the assistance of a bite block, I advanced a standard gastroscope through the mouth past the hypopharynx and into the esophagus.? Under the direct vision of the scope, I advanced down the esophagus into the stomach.? Once I entered the stomach, I performed a brief inspection, followed by retroflexion towards the gastric cardia.? There was a singular large polyp along the fold of the GE junction. I was able to remove this in its entirety with biopsy forceps.? After that, I gently advanced the scope around the incisura angularis and examined the pylorus.? This also appeared normal.? Next, I advanced the scope through the pylorus into the duodenum.? The mucosa was pink and healthy appearing.? There were no abnormalities.? I was able to visualize bile draining into the duodenum through the ampulla Vater. ?Next, I began retracting the endoscope.? Again, I returned to the stomach which was carefully examined once again.? I performed random biopsies of the antrum and body of the stomach for consideration of Helicobacter pylori. I then gently desufflated some of the stomach, and withdrew the endoscope into the distal esophagus. I did not appreciate any signs of Bernal's esophagitis, stricture, or diverticula. ?Finally, I withdrew the scope along the length of the esophagus taking great care to examine the entirety of the mucosa.? I did not appreciate any abnormalities.
--- NOTE | 2021-10-14 11:14 | W.PM.DSUDISC ---
Discharge Plan Disposition Patient Disposition: HOME Condition: Good Discharge Details Reason For Visit: egd Attending Provider: Reid Mason Primary Care Provider: Mar Viera Home Meds and New Rx's Prescriptions: Continued pantoprazole 40 mg tablet,delayed release (DR/EC) 40 mg PO DAILY Qty: 90 3RF losartan 100 mg tablet 100 mg PO DAILY Qty: 90 3RF atorvastatin 10 mg tablet 10 mg PO DAILY Qty: 90 3RF ascorbic acid (vitamin C) 500 MG tablet 500 mg PO DAILY vitamin B complex 1 EACH tablet 1 ea PO DAILY [id number] 1 EACH tablet 1 ea PO DAILY Probiotic and Acidophilus 1 EACH capsule 1 ea PO DAILY cholecalciferol (vitamin D3) 1,000 UNIT tablet 1,000 unit PO DAILY aspirin [Adult Low Dose Aspirin] 81 mg tablet,delayed release (DR/EC) 81 mg PO Q48H fluticasone propionate 50 mcg/actuation spray,suspension 50 mcg NS DAILY Qty: 1 6RF Rx Instructions: 1 spray/nostril daily fluticasone propionate [Flovent HFA] 110 mcg/actuation HFA aerosol inhaler 1 puff Inhalation BID Qty: 36 3RF meclizine 25 mg tablet 25 mg PO DAILY PRN (Reason: vertigo) Qty: 20 12RF hydrochlorothiazide 25 mg tablet 25 mg PO DAILY Qty: 90 3RF (DME) blood sugar diagnostic Strip See Rx Instructions .ROUTE .MEDSUPPLY Qty: 100 3RF Rx Instructions: dispense One Touch Ultra test strips to test blood sugars daily to maintain AIC at 7 or less, E11.9 (DME) lancets [OneTouch Delica Lancets] 33 gauge misc 1 ea Miscellaneous DAILY Qty: 50 6RF Rx Instructions: to identify BS for DM E11.9 to keep A1c at or below 7 potassium chloride 20 mEq tablet extended release See Rx Instructions PO DAILY Qty: 36 0RF Rx Instructions: 2 tabs TID for one day, then one tab daily ondansetron 4 mg tablet,disintegrating 4 mg PO TID PRN (Reason: nausea and vomiting) Qty: 10 0RF Discharge Instructions Instructions: Upper Endoscopy (DC) Additional Instructions: 1. If tolerated, consume a soft, low fiber diet for 1-2 days or follow any special diet recommended by your physician. 2. Do not drive, drink alcohol, operate machinery, make critical decisions, or do activities that require coordination or balance for 24 hours. 3. You may experience a sore throat for 24 to 48 hours. You may use throat lozenges or gargle with warm salt water to relieve the discomfort. 4. Because air was put into your stomach during the procedure, you may experience some belching. 5. Go directly to the emergency room if you notice any of the following: ? Develop chills (warm to touch), or if you have a thermometer and your temperature is above 101 ? Difficulty breathing or difficultly swallowing ? Persistent vomiting or vomiting with blood/nasal regurgitation ? Severe abdominal pain, other than gas cramps ? Severe chest pain ? Black, tarry stools 6. Call your physician if the site where your intravenous was started becomes red, swollen, painful, and warm to touch. 7. Your physician has reviewed your preprocedure medications. Please continue to take those medications as previously ordered. You will be given specific information/education regarding any changes to your medications before leaving. Stand Alone Forms: Haroldo Davies (DSU) Activity:: Activity as Tolerated Diet:: per instructions Discharge Orders Discharge Orders: Discharge Order (Routine); Ordered 10/14/21 Ordered By: Reid Mason Discharge Data Discharge Date/Time-TO BE ENTERED AT DEPARTURE: 10/14/21 12:15 Discharge Comment: follow up with PCP DS: Diagnosis Discharge Diagnosis (1) Gastric polyp: Status: Acute Asessment and Plan: Biopsied
[2021-10-14 11:38] VITALS: BP 159/57; PULSE 54; RESP 16; TEMP 36.4; O2SAT 99
--- NOTE | 2021-10-14 12:33 | W.ANESPOSTOP ---
Postoperative Evaluation Date, Time and Location Date Performed: 10/14/21 Time Performed: 11:30 Patient Location: Day Surgery Unit Vital Signs Most Recent Imported Vital Signs: Most Recent Vital Signs Temp Pulse Resp BP Pulse Ox 36.4 C L 54 L 16 159/57 H 99 10/14/21 11:38 10/14/21 11:38 10/14/21 11:38 10/14/21 11:38 10/14/21 11:38 Pain Score Most Recent Pain Score: Most Recent Pain Score Pain Level 0 10/14/21 11:38 Assessment Mental Status: Awake (Alert & Oriented to Patient Baseline) Airway and Respiratory Function: Patent airway with normal (patient baseline) respiratory exam Cardiovascular Function: Hemodynamically Stable Hydration Status: Adequately Hydrated Nausea & Vomiting: No Nausea or Vomiting Pain: Pt. Denies Any Pain Peripheral Nerve Block: Patient did not receive a nerve block
== END 2021-10-14 12:15 | disposition home or self-care (01) ==
PROVIDERS: PCP Nurse Practitioner; Visit Provider Surgery
PROC: 0DJ68ZZ Inspection of Stomach, Via Natural or Artificial Opening Endoscopic (ICD-10-PCS; CPT 43235; principal; 2021-10-14 10:30)
DX: R11.2 Nausea with vomiting, unspecified (principal); K31.7 Polyp of stomach and duodenum; K20.90 Esophagitis, unspecified without bleeding; E11.9 Type 2 diabetes mellitus without complications; K21.9 Gastro-esophageal reflux disease without esophagitis; E78.5 Hyperlipidemia, unspecified; K22.89 Other specified disease of esophagus; K31.89 Other diseases of stomach and duodenum
CPT/HCPCS: 43239; 88305

== ENCOUNTER 2021-10-21 03:08 | Outpatient (CLI) | payer MEDICARE, OTHER, SELFPAY ==
[2021-10-21 10:01] LABS: BUN 13 mg/dL (7-18); CREATININE 1.1 mg/dL (0.55-1.02); Calcium 8.9 mg/dL (8.5-10.1); Chloride 103 mmol/L (98-107); Estimated GFR 47.67 (mL/min/1.73m2); Glucose 168 mg/dL (74-106); Potassium 3.7 mmol/L (3.5-5.1); Sodium 137 mmol/L (136-145)
== END 2021-10-21 03:09 | disposition home or self-care (01) ==
LOC: LBO 03:08
PROVIDERS: PCP Nurse Practitioner; Visit Provider Nurse Practitioner
DX: E87.6 Hypokalemia (principal)
CPT/HCPCS: 36415; 80048

== ENCOUNTER 2021-11-05 01:19 | Outpatient (CLI) | payer MEDICARE, OTHER, SELFPAY ==
[2021-11-05 09:51] LABS: Anion Gap 9.2 mmol/L (3-11); BUN 19 mg/dL (7-18); CO2 26.8 mmol/L (21.0-32.0); CREATININE 1.1 mg/dL (0.55-1.02); Chloride 107 mmol/L (98-107); Estimated GFR 47.67 (mL/min/1.73m2); Glucose 132 mg/dL (74-106); Potassium 3.6 mmol/L (3.5-5.1); Sodium 143 mmol/L (136-145)
== END 2021-11-05 01:20 | disposition home or self-care (01) ==
LOC: LBO 01:19
PROVIDERS: PCP Nurse Practitioner; Visit Provider Nurse Practitioner
DX: E87.6 Hypokalemia (principal)
CPT/HCPCS: 36415; 80048

== ENCOUNTER → 2021-12-02 01:32 | Outpatient (CLI) | payer MEDICARE, OTHER, SELFPAY ==
--- NOTE | 2021-12-02 07:00 | DI.US_ITS ---
Exam(s) US ABDOMEN EXAM: US ABDOMEN CLINICAL HISTORY: discomfort intermittently, ion w/drinking H2O,lt sided abd pain,r10.9 TECHNIQUE: Ultrasound abdomen performed using standard protocol. COMPARISON: US ABDOMEN ULTRASOUND (P) from 10/09/2012 CT ABD PELVIS WITH CONTRAST from 09/15/2014 FINDINGS: ABDOMINAL AORTA AND IVC: Visualized portions normal caliber. PANCREAS: Normal where visualized. LIVER: Normal. Hepatopedal flow in the Portal Vein. GALLBLADDER:Status post cholecystectomy. BILIARY SYSTEM: Common bile duct measures < 7 mm. No intrahepatic biliary ductal dilation. KIDNEYS: Kidneys are symmetric in size. No evidence of renal calculi. No evidence of hydronephrosis. There is a 1.9 x 2.3 x 1.3 cm cyst. This was present on the CT scan of the abdomen and pelvis from . No follow-up is recommended. SPLEEN: Not enlarged. ASCITES: None seen. IMPRESSION: Unremarkable abdominal ultrasound. DATA REPOSITORY:
== END ==
PROVIDERS: PCP Nurse Practitioner; Visit Provider Nurse Practitioner
DX: R10.9 Unspecified abdominal pain (principal)
CPT/HCPCS: 76700

== ENCOUNTER 2022-10-17 02:44 | Outpatient (CLI) | payer MEDICARE, OTHER, SELFPAY ==
[2022-10-17 09:15] LABS: ALT 22 U/L (14-59); AST 18 U/L (15-37); Albumin 3.7 g/dL (3.4-5.0); Alkaline Phosphatase 72 U/L (46-116); Anion Gap 7.9 mmol/L (3-11); BUN 13 mg/dL (7-18); Bilirubin, Total 0.7 mg/dL (0.2-1.0); CO2 27.1 mmol/L (21.0-32.0); Calcium 9.3 mg/dL (8.5-10.1); Calculated LDL 58 mg/dL (<100); Chloride 106 mmol/L (98-107); Cholesterol 142 mg/dL (<200); Estimated GFR 56.25 (mL/min/1.73m2); Glucose 132 mg/dL (74-106); HDL Cholesterol 61 mg/dL (40-60); Potassium 3.8 mmol/L (3.5-5.1); Sodium 141 mmol/L (136-145); Triglyceride 116 mg/dL (<150)
[2022-10-17 10:48] LABS: Hemoglobin A1C 6.3 % (<5.7)
== END 2022-10-17 02:45 | disposition home or self-care (01) ==
LOC: LBO 02:44
PROVIDERS: PCP Nurse Practitioner; Referring Provider Nurse Practitioner; Visit Provider Nurse Practitioner
DX: I10 Essential (primary) hypertension (principal); E78.5 Hyperlipidemia, unspecified; E11.9 Type 2 diabetes mellitus without complications
CPT/HCPCS: 36415; 80053; 80061; 83036

== ENCOUNTER → 2022-12-26 02:05 | Outpatient (CLI) | payer MEDICARE, OTHER, SELFPAY ==
--- NOTE | 2022-12-26 07:45 | DI.RAD_ITS ---
Exam(s) XR FOOT RT COMPLETE EXAM: XR FOOT RT COMPLETE CLINICAL HISTORY: rt foot/heel pain,[id number]. TECHNIQUE: 2D digital imaging was performed. Three views. COMPARISON: No exams were available for comparison FINDINGS: BONES: No acute fracture is present. No bony destructive lesion is seen. Small heel spurs. Plantar arch is maintained. JOINTS: No dislocation present. Mild degenerative changes 1st MTP joint. Degenerative changes inter phalangeal joints of the toes. Degenerative changes tarsal metatarsal joints, greater this 2nd and 3 rd tarsal metatarsal joints. Mild degenerative changes in the intertarsal articulations. SOFT TISSUE: Normal. IMPRESSION: Degenerative changes greatest of the tarsal metatarsal joints. DATA REPOSITORY: RADIATION DOSE DELIVERED:
== END ==
PROVIDERS: PCP Nurse Practitioner; Visit Provider Podiatrist
DX: M19.072 Primary osteoarthritis, left ankle and foot
CPT/HCPCS: 73630

== ENCOUNTER 2023-01-21 02:44 | Emergency (ER) | payer MEDICARE, OTHER, SELFPAY ==
[2023-01-21] VITALS (23 sets, daily range): BP systolic 150–195; BP diastolic 34–52; PULSE 59–65; RESP 10–19; TEMP 36.4; O2SAT 72–100
--- NOTE | 2023-01-21 02:40 | ED.GENADUL_ITS ---
Discharge Plan Disposition Patient Disposition: Home Discharge Details Chief Complaint: Nausea/Vomit/Diar Clinical Impression: Weakness generalized, Diarrhea, Dehydration, mild Primary Care Provider: Mar Viera ED Provider: Monisha Mcfadden Home Meds and New Rx's Prescriptions: No Action famotidine 20 mg tablet 20 mg PO DAILY Qty: 90 3RF amlodipine 5 mg tablet 5 mg PO DAILY Qty: 90 3RF atorvastatin 10 mg tablet 10 mg PO DAILY Qty: 90 3RF ascorbic acid (vitamin C) 500 MG tablet 500 mg PO DAILY vitamin B complex 1 EACH tablet 1 ea PO DAILY [id number]-[id number]-lbgn-ysd-coio-bor 1 EACH tablet 1 ea PO DAILY Probiotic and Acidophilus 1 EACH capsule 1 ea PO DAILY cholecalciferol (vitamin D3) 1,000 UNIT tablet 1,000 unit PO DAILY aspirin [Adult Low Dose Aspirin] 81 mg tablet,delayed release (DR/EC) 81 mg PO Q48H fluticasone propionate 50 mcg/actuation spray,suspension 50 mcg NS DAILY Qty: 1 6RF Rx Instructions: 1 spray/nostril daily fluticasone propionate [Flovent HFA] 110 mcg/actuation HFA aerosol inhaler See Rx Instructions .ROUTE .COMPLEX Qty: 36 2RF Dose Instruction: USE 1 INHALATION TWICE A DAY Rx Instructions: USE 1 INHALATION TWICE A DAY meclizine 25 mg tablet 25 mg PO DAILY PRN (Reason: vertigo) Qty: 60 3RF albuterol sulfate 90 mcg/actuation HFA aerosol inhaler 1 - 2 puff inhalation Q4H PRN (Reason: shortness of breath or wheezing) Qty: 1 3RF Rx Instructions: Dispense brand of albuterol inhaler covered by patient's insurance losartan 100 mg tablet 100 mg PO DAILY Qty: 90 3RF pantoprazole 40 mg tablet,delayed release (DR/EC) 40 mg PO DAILY Qty: 90 3RF (DME) OneTouch Ultra Test Strip See Rx Instructions .ROUTE .COMPLEX Qty: 100 3RF Dose Instruction: TEST BLOOD SUGAR ONCE DAILY TO MAINTAIN A/C AT 7 OR LESS Rx Instructions: TEST BLOOD SUGAR ONCE DAILY TO MAINTAIN A/C AT 7 OR LESS (DME) lancets [OneTouch Delica Plus Lancet] 33 gauge misc See Rx Instructions .ROUTE .COMPLEX Qty: 100 6RF Dose Instruction: TEST DAILY TO IDENTIFY BLOOD SUGAR FOR DM AND TO KEEP A1C AT OR BELOW 7 Rx Instructions: TEST DAILY TO IDENTIFY BLOOD SUGAR FOR DM AND TO KEEP A1C AT OR BELOW 7 Discharge Instructions Instructions: Dehydration (ED), Acute Diarrhea (ED), Weakness (ED) Additional Instructions: 1. Call your primary care provider on Monday the for a follow-up appointment and recheck and to review the results of the stool studies which are send outs and will not be resulted tonight. 2. You should try to avoid antidiarrheals but if you are going more than 10 times a day you can take an leqb-svk-fzzaffs antidiarrheal such as Pepto-Bismol. 3. You should avoid cooking for anyone but yourself until your symptoms have resolved and your stool studies have been resulted as negative. 4. You should rehydrate with electrolyte solution such as Gatorade or Pedialyte. 5. You should take your regular antihypertensive medications unless you are vomiting and cannot tolerate them. 6. Return to the emergency department for any new or worrisome symptoms such as increasing abdominal pain, intractable vomiting, or any concerns. Discharge Data Discharge Physician: Monisha Mcfadden Medical Decision Making This is an 82-year-old female who presents with nausea vomiting diarrhea 5 days ago which resolved. The diarrhea alone returned yesterday and she tells me she has had more than 20 episodes of nonbloody diarrhea. She is denying any abdominal pain but states that her abdomen feels funny and she has generalized weakness. She has not had any foreign travel, sick contacts, recent antibiotics or any unusual foods. My plan is to obtain blood work and a CT of the abdomen and pelvis with IV contrast to rule out diverticulitis or other pathology such as ischemic bowel although on rectal exam she is heme-negative which is reassuring. We will give her IV fluids and reassess her. Clinically she does appear slightly dehydrated. We will make sure she is able to tolerate p.o. fluids and is able to ambulate before she is discharged. I will send stool studies and check her comprehensive metabolic panel to check her liver functions renal function and electrolytes. We will check a CBC for leukocytosis and left shift. I will check a lipase since she has a history of pancreatitis in the past. She tells me she does not drink and cannot recall the last time she had alcohol low she does have pancreatitis according to her past medical history. I will also give her her p.o. antihypertensives since she has not taken them in several days. Differential Diagnosis Differential Diagnosis: Gastroenteritis, Salmonella, Shigella, Campylobacter Medical Records Medical records reviewed: Yes I reviewed the patient's medical records. Imaging Data Radiologic Study: Imaging: CT Scan (CT abdomen and pelvis with contrast) Radiologist's impression: 1. Fluid-filled small and large bowel, consistent with stated history of diarrhea. 2. Nonacute findings as outlined above. Lab Data Lab results reviewed: Yes I reviewed the patient's lab results. Lab results narrative: Normal white count, normal H&H, no left shift, slightly elevated creatinine with a GFR of 50. Mild hyperglycemia, normal LFTs, normal lipase, slight urine ketones. Stool studies are pending. ECG Data Attestation: I personally reviewed and interpreted this ECG (s) as follows: Prior ECG tracings: available for review HPI General Date/Time Provider Initiated Documentation: 01/21/23 03:02 . Limitations to Documentation: no limitations . Information obtained by: patient, EMS, RN notes reviewed and old records reviewed . HPI Narrative: Time seen was on arrival in bed 1. The patient is a 82-year-old female who had nausea vomiting and diarrhea 5 to 6 days ago which improved after 1 to 2 days. She did not feel well after the vomiting and diarrhea resolved, but the diarrhea began again several hours prior to arrival and she had associated generalized weakness and called EMS who brought her in for evaluation. She has not had any vomiting but has not taken her antihypertensives today. She denies any foreign travel, sick contacts, recent antibiotics or unusual foods. She states her stomach feels funny but denies any abdominal pain. She denies any blood in the stool or dysuria. She thinks she is had more than 20 episodes of diarrhea since the recurred. She also endorses generalized weakness. She denies any fevers or chills. She does not drink significant amounts of alcohol. She does have a history of nqo-jjsocve-ikaumgvlo diabetes gastroesophageal reflux hypertension high cholesterol and pancreatitis. She denies any other aggravating or alleviating factors. She has had similar episodes but not as severe as today's. She denies any falls or syncope. She denies any unusual foods such as wild mushrooms. She is status post appendectomy and cholecystectomy. Related Data Home Medications Medication Instructions Recorded Confirmed ascorbic acid (vitamin C) 500 mg 500 mg PO DAILY 06/18/12 01/21/23 tablet [id number]-G6-kmd-Wf-syzvo-rknf-boron 1 ea PO DAILY 06/18/12 01/21/23 600 mg-200 unit-40 mg-7.5 mg tablet vitamin B complex 1 ea PO DAILY 06/18/12 01/21/23 Lactobacillus comb 1 ea PO DAILY 10/24/14 01/21/23 no.7-HWA-pecwdhrvfy 300 million cell-250 mg capsule (Probiotic and Acidophilus) cholecalciferol (vitamin D3) 25 1,000 unit PO DAILY 01/25/17 01/21/23 mcg (1,000 unit) tablet aspirin 81 mg tablet,delayed 81 mg PO Q48H 07/09/18 01/21/23 release (Adult Low Dose Aspirin) fluticasone propionate 50 50 mcg NS DAILY #1 unit 03/30/20 01/21/23 mcg/actuation nasal spray,suspension famotidine 20 mg tablet 20 mg PO DAILY #90 tabs 05/04/22 01/21/23 fluticasone propionate 110 See Rx Instructions .Route 05/23/22 01/21/23 mcg/actuation HFA aerosol inhaler .COMPLEX #36 grams (Flovent HFA) meclizine 25 mg tablet 25 mg PO DAILY PRN vertigo #60 tabs 09/06/22 01/21/23 albuterol sulfate 90 mcg/actuation 1 - 2 puff inhalation Q4H PRN 09/15/22 01/21/23 aerosol inhaler shortness of breath or wheezing #1 unit losartan 100 mg tablet 100 mg PO DAILY #90 tab-caps 09/26/22 01/21/23 pantoprazole 40 mg tablet,delayed 40 mg PO DAILY #90 tabs 09/26/22 01/21/23 release amlodipine 5 mg tablet 5 mg PO DAILY #90 tabs 11/02/22 01/21/23 atorvastatin 10 mg tablet 10 mg PO DAILY #90 tabs 11/02/22 01/21/23 blood sugar diagnostic (SimfinitTouch #100 strips 12/05/22 12/26/22 Ultra Test strips) lancets 33 gauge (SimfinitTouch Luisa #100 ea 12/05/22 12/26/22 Plus Lancet) Previous Rx's Medication Instructions Recorded fluticasone propionate 50 50 mcg NS DAILY #1 unit 03/30/20 mcg/actuation nasal spray,suspension famotidine 20 mg tablet 20 mg PO DAILY #90 tabs 05/04/22 fluticasone propionate 110 See Rx Instructions .Route 05/23/22 mcg/actuation HFA aerosol inhaler .COMPLEX #36 grams (Flovent HFA) meclizine 25 mg tablet 25 mg PO DAILY PRN vertigo #60 tabs 09/06/22 albuterol sulfate 90 mcg/actuation 1 - 2 puff inhalation Q4H PRN 09/15/22 aerosol inhaler shortness of breath or wheezing #1 unit losartan 100 mg tablet 100 mg PO DAILY #90 tab-caps 09/26/22 pantoprazole 40 mg tablet,delayed 40 mg PO DAILY #90 tabs 09/26/22 release amlodipine 5 mg tablet 5 mg PO DAILY #90 tabs 11/02/22 atorvastatin 10 mg tablet 10 mg PO DAILY #90 tabs 11/02/22 blood sugar diagnostic (Extreme Realityuch #100 strips 12/05/22 Ultra Test strips) lancets 33 gauge (SimfinitTouch Delica #100 ea 12/05/22 Plus Lancet) Allergies Allergy/AdvReac Type Severity Reaction Status Date / Time mushroom Allergy Severe Anaphylaxsi Verified 01/21/23 02:52 s codeine Allergy Unknown as child, Verified 01/21/23 02:52 unknown Sulfa (Sulfonamide Allergy Unknown as child, Verified 01/21/23 02:52 Antibiotics) unknown lisinopril AdvReac Mild cough Verified 01/21/23 02:52 simvastatin AdvReac Mild 01/22/2017 Verified 01/21/23 02:52 joint pain General LACEY: 3 Review of Systems Narrative: see hpi PFSH All Active Problems (Updated 01/21/23 @ 06:49 by Monisha Mcfadden MD) Dehydration, mild (Acute) Diarrhea (Acute) Weakness generalized (Acute) Degenerative joint disease of both ankles and feet (Acute) Acquired hammertoes of both feet (Acute) Bilateral bunions (Acute) Achilles tendon contracture, right (Acute) Plantar fasciitis, right (Acute) Gastric polyp (Acute) ALBARRAN (dyspnea on exertion) (Acute) Abdominal bloating (Acute) 08/30/18 [facility] Eosinophilic gastritis (Chronic) Diabetes mellitus (Chronic) Gastroesophageal reflux disease (Acute 07/19/11) Medical History Actinic keratosis (~11/2021) 12/17/21 [facility] Asthma Intermittent asthma. 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 Esophageal reflux (07/19/11) Essential hypertension (07/06/12) FRS 25% Gallstone pancreatitis Gallstone pancreatitis (10/26/12) lap cholecystectomy 09/2012 Dr Cox GERD (gastroesophageal reflux disease) Grief Hyperlipidemia June 2012-Total cholesterol 232; triglycerides 147; LDL 148 and HDL 52--todays labs pending. Hyperlipidemia (07/06/12) PCEq 15%; baseline LDL 149 Impaired fasting glucose (07/19/11) Insomnia Internal hemorrhoids Low back pain Obesity Stage I obesity with a BMI of 31 .0 Osteoarthritis Osteoarthrosis (10/22/13) in Knee per Dr. Neville at [facility] Osteopenia (01/09/12) DEXA 12/2011 NL except forearm T -1.3 Pancreatitis (10/09/12) irst episode of pancreatitis of uncertain etiology. PTSD (post-traumatic stress disorder) Skin lesions Vertigo (05/08/15) Surgical History History of appendectomy EGD - MAC (08/01/17) Cholecystectomy (10/11/12) H/O surgical procedure a. appendectomy as a child b. lap brock 2012 after having gallstone pancreatitis Family History Brother Heart disease pacemaker Neoplasm Kidney Social History Smoking/Tobacco Use Status: Former Tobacco Use Quit Date: 03/20/73 Smoking risk assessment performed?: Yes Alcohol Intake: current Alcohol Intake frequency: holidays/special occasions only Drug use: Never Substance use type: does not use Household members: none Number of Children: 0 Current gender identity: female What type of physical activity do you participate in: walking and other Det ails: Alexis Chi 1x/week Duration: 30-45 minutes/day Frequency: 3-4 times per week Do you feel safe at home: Yes Do you feel safe in your relationship?: Yes Additional Social history: lives alone Exam Narrative Exam Narrative: The patient is a well-developed well-nourished female who is alert and oriented. She is hypertensive with an initial heart rate of 65. She is not tachypneic or febrile. Her room air O2 sat was normal at 99% on room air. Const General: cooperative, healthy appearing, comfortable, no acute distress, well developed, well groomed and well hydrated Nutritional Appearance: average body habitus and well nourished Orientation: alert, awake and oriented x3 HENMT Head: normal to inspection, normocephalic and atraumatic Ears: hearing grossly normal bilaterally and external ears normal General nose exam: external nose normal, nares normal and no nasal discharge Face and sinus: normal facial exam, sinuses nontender and face symmetric Mouth: lip normal, tongue normal, oropharynx normal, mucous membranes dry, moist mucous membranes abnormal (Slightly dry), no muffled voice and other (Normal phonation. The patient is handling secretions.) Throat: posterior oropharynx normal and uvula midline Eyes General: appearance normal, both eyes and all related structures Eyelids: eyelids normal Conjunctivae: conjunctivae normal Sclera: sclerae normal Cornea: corneas normal Pupils: PERRL EOM: EOM intact bilaterally and No nystagmus Neck Neck: normal visual inspection, full ROM, no lymphadenopathy, no meningeal signs, trachea midline and supple Lymphatic: no lymphadenopathy noted Chest Chest: normal inspection of the chest Resp Effort & Inspection: normal respiratory effort, able to speak in complete sentences, no audible wheezes, no nasal flaring, no respiratory distress, no retractions, no stridor, not tachypneic, no tracheal deviation, no use of accessory muscles, No prolonged expiratory phase and other (Normal inspiratory to expiratory ratio.) Auscultation: clear to auscultation bilaterally, no rales, no rhonchi, no wheezes and no rubs Tactile Fremitus: tactile fremitus absent Cardio Jugular venous pressure: no JVD Palpation: normal PMI Rate: regular rate Rhythm: regular rhythm Heart Sounds: S1 normal, S2 normal, no gallops, murmur (The patient had a 1/6 to 2/6 systolic ejection murmur @ L sternal boarder) systolic and no rubs Bruits: no abdominal aortic bruits GI Inspection: normal to inspection and non-distended Palpation: soft, no hepatosplenomegaly and no guarding Percussion: normal to percussion Auscultation: normal bowel sounds Rectal Exam - female: visual inspection normal and heme negative stool Other: Yellow stool General: No CVA tenderness Back/Spine/Pelvis Back: no CVA tenderness and No back tenderness Cervical Spine: normal cervical lordosis, cervical ROM normal, No cervical muscular tenderness, No pain with cervical ROM, No cervical spinal tenderness and No step off deformity Thoracic/Lumbar Spine: thoracic and lumbar spine normal to inspection, No thoracic spinal tenderness and No lumbar spinal tenderness Skin General skin exam: no rashes or lesions noted, turgor normal, no petechiae, no purpura and other (Skin is normal for ethnicity.) Lesions: no lesions Rashes: no rashes Trauma: no lacerations or abrasions Neuro General: patient alert, patient awake, patient oriented x3, moves all extremities, no meningeal signs, no focal motor deficits and CN's II-XI intact bilaterally Cranial Nerves: CN's II-XI intact bilaterally, PERRL, accommodation normal, EOM intact bilaterally, no nystagmus, facial strength normal, tongue midline, hearing normal and no nystagmus Cognition: normal cognition Speech: speech normal Gait: normal gait Motor: muscle tone normal throughout and strength 5/5 throughout Sensory Exam: no sensory deficits noted Extrem General: full ROM, capillary refill normal, no clubbing, cyanosis or edema and no calf tenderness Other: The patient had well-healed surgical scars from vein stripping on her right lower extremity. There were still some varicose veins present. Psych Appearance: grossly normal Affect: normal affect Attitude: cooperative Thought Process: normal Thought Content: normal Insight: insight good Judgment: judgment good Other: The patient appears to have capacity make medical decisions. Course Reevaluation(s) Time: 05:34 Reevaluation: The patient feels improved. Her pain is 5 out of 10 in severity. She declined any further pain medications we are still awaiting the results of her LS spine. I have reviewed them and do not see any acute fracture. Time: 06:42 Reevaluation #2: I have updated the patient on the findings of the CT scan. She tells me that she still feels slightly weak but will try taking p.o. diandra lary. I have advised her to follow-up with her primary care provider for the results of the stool sample which are send outs. I have advised her to return here for any new or worrisome symptoms. The patient voiced understanding agreement with the discharge plan. All her questions and concerns were addressed prior to discharge. I have also updated the patient to follow-up with her primary about her murmur Lab/Test Results Lab/Test Results: Normal white count, normal H&H, mild renal insufficiency. Mild hyperglycemia, normal LFTs normal lipase small amount of ketones in the urine stool studies are pending Critical Care Time Critical Care Time Critical Care Time: Yes Total Critical Care Time: 38 Attestation: This includes time at the bedside, review of labs and radiographs, review of old records.
--- NOTE | 2023-01-21 02:45 | RT.EKG_ITS ---
APPROVED REPORT Exam: Resting ECG Reason for Exam: weakness Patient Location: E HR:61 bpm ECG Measurements Heart Rate 61 AXIS KS 182 P 50 QRSd 86 QRS 54 QT 395 T 39 QTc 400 Conclusion Sinus rhythm...normal P axis, V-rate 60- 99 NSR, NL axis, NL intervals, no STEMI, No changes from previous.
--- NOTE | 2023-01-21 03:00 | DI.CT_ITS ---
Exam(s) CT ABDOMEN PELVIS W EXAM: CT ABDOMEN PELVIS W CLINICAL HISTORY: diarrhea abdominal pain TECHNIQUE: Imaging Protocol: Axial computed tomography images with coronal and sagittal reformatted images were created and reviewed CONTRAST MATERIAL: Intravenous: Omnipaque 350 Contrast volume:100 mL Oral: No COMPARISON: CT ABD PELVIS WITH CONTRAST from 09/15/2014 FINDINGS: The examination is limited due to patient motion artifact. ABDOMEN: Lung Bases: Coronary artery calcification. Liver: Normal density. No measurable mass. Portal, Superior Mesenteric, and Splenic Veins: Unremarkable. Gallbladder and Biliary Tract: Status post cholecystectomy. No significant biliary ductal dilatation . Pancreas: Normal density, no abnormal calcifications or inflammatory process. Spleen: Normal. Adrenals: No masses seen. Kidneys: Normal size, contour and axis. No radiodense stones or obstructive uropathy. There are simpl e left renal cysts. No follow-up is recommended. Abdominal Aorta: Abdominal portion non-dilated. Atherosclerosis. Bowel: There is diverticulosis of the colon without evidence of a diverticulitis. There is no eviden ce of bowel obstruction, bowel wall thickening or pneumatosis. No evidence of appendicitis. There a re fluid-filled loops of small bowel and colon. Peritoneal Cavity: No ascites, collection or mesenteric inflammatory response. No free air. Lymph Nodes: Mildly prominent lymph nodes are seen in the mesentery. There is mild haziness of the m esentery. Bones: Within normal limits for the patient's age. Soft Tissues: Unremarkable. PELVIS: Bladder: Symmetric distention, no gross wall thickening. Reproductive Organs: There is a calcified uterine fibroid. Lymph Nodes: Within normal limits. Bones: Within normal limits for the patient's age. IMPRESSION: 1. Fluid-filled loops of small bowel and colon which may represent diarrheal illness. 2. Mildly prominent measures enteric lymph nodes and a haziness in the mesentery which may reflect me senteric panniculitis. RADIATION DOSE DELIVERED: Total DLP DATA REPOSITORY: All CT scans at this facility are submitted to the National Radiology Data Registry (NRDR) Dose Index Registry (DIR) with the [employer] (ACR). RADIATION OPTIMIZATION: All CT scans at this facility use at least one of these dose optimization te chniques: automated exposure control; mA and/or kV adjustment per patient size (includes targeted exa ms where dose is matched to clinical indication); or iterative reconstruction.
[2023-01-21 03:15] LABS: Abs Immature Grans 0.02 10^3/uL (0.0-0.06); Absolute Basophil Count 0.04 10^3/uL (0.0-0.2); Absolute Eosinophil Count 0.21 10^3/uL (0.0-0.7); Absolute Lymphocyte Count 2.78 10^3/uL (1.2-3.4); Absolute Monocyte Count 1.18 10^3/uL (0.1-0.8); Basophils % 0.4; Eosinophils % 2.3; HGB 13.2 g/dL (11.2-15.7); Immature Grans % 0.2; Lymphocytes % 30.1; MCH 30.5 pg (27.0-33.0); MCHC 33.8 % (32.0-36.0); MCV 90 fL (80-95); MPV 11.1 fL (8.0-11.0); Monocytes % 12.8; Neutrophils % 54.2; Platelet Count 325 10^3/uL (130-400); RBC 4.33 10^6/uL (3.93-5.22); RDW 12.8 % (11.7-14.6); RDW-SD 42.3 fL; WBC 9.23 10^3/uL (4.4-10.8)
[2023-01-21 03:17] LABS: Lactate 0.7 mmol/L (0.6-1.4)
[2023-01-21] MEDS: Lactated Ringers 1,000 ML 1000 ML IV (03:20)
[2023-01-21] MEDS: Losartan 50 MG TAB 100 MG PO (03:25)
[2023-01-21 03:27] LABS: Lipase 55 U/L (16-77)
[2023-01-21 03:31] LABS: ALT 20 U/L (14-59); AST 15 U/L (15-37); Albumin 3.6 g/dL (3.4-5.0); Alkaline Phosphatase 73 U/L (46-116); Anion Gap 13.4 mmol/L (3-11); BUN 16 mg/dL (7-18); Bilirubin, Total 0.5 mg/dL (0.2-1.0); CO2 23.6 mmol/L (21.0-32.0); CREATININE 1.1 mg/dL (0.55-1.02); Calcium 9.2 mg/dL (8.5-10.1); Chloride 101 mmol/L (98-107); Estimated GFR 50.17 (mL/min/1.73m2); Glucose 136 mg/dL (74-106); Potassium 3.5 mmol/L (3.5-5.1); Sodium 138 mmol/L (136-145); Total Protein 7.2 g/dL (6.4-8.2)
[2023-01-21] MEDS: amLODIPine 5 MG TAB PO (03:33)
[2023-01-21 03:58] LABS: Bilirubin Negative (Negative); Blood Negative (Negative); Clarity Clear (Clear); Glucose Negative (Negative); Ketones 15 mg/dL (Negative); Leukocyte Esterase Negative (Negative); Nitrite Negative (Negative); Urobilinogen 0.2 mg/dL (Up to 0.2)
--- NOTE | 2023-01-21 05:19 | DI.VRAD_ITS ---
PROCEDURE INFORMATION: Exam: CT Abdomen And Pelvis With Contrast Exam date and time: 01/21/2023 4:10 AM Age: 82 years old Clinical indication: Other: Diarrhea; Abdominal pain; Generalized TECHNIQUE: Imaging protocol: Computed tomography of the abdomen and pelvis with contrast. Multiplanar reconstructions are not submitted. COMPARISON: No relevant prior studies are available for comparison. FINDINGS: Limitations: Mild motion artifact. Liver: No focal hepatic lesion identified. Gallbladder and bile ducts: Cholecystectomy with biliary ductal dilatation. Pancreas: No CT evidence for acute pancreatitis. Spleen: No splenomegaly. Adrenal glands: Adrenal thickening. Kidneys and ureters: Left renal cysts. Stomach and bowel: No intestinal obstruction is evident. Fluid in nondilated small bowel, nonspecific. Fluid-filled colon. Colonic diverticulosis. Areas of apparent mural thickening in the colon commensurate with underdistention. Appendix: No evidence of appendicitis. Intraperitoneal space: Mild haziness in the mesenteric fat in the mid abdomen. Cannot exclude mesenteric panniculitis. Vasculature: Arterial calcifications. Lymph nodes: Multiple prominent mesenteric lymph nodes. Urinary bladder: No acute findings. Reproductive: 2.4 cm right ovarian cyst. Uterine calcification, likely within fibroids. Bones/joints: Dural ectasia in the sacrum. Soft tissues: No pertinent acute abnormality seen. IMPRESSION: 1. Fluid-filled small and large bowel, consistent with stated history of diarrhea. 2. Nonacute findings as outlined above. Dictated and Authenticated by: Ely Meyers MD. Ordering:MINE Bearden MD
[2023-01-21] MEDS: Omnipaque 350 MG/ML 100 ML BTL IJ (06:58)
[2023-01-21] MEDS: Normal Saline Flush 10 ML SYR IVP (07:00)
[2023-01-21] MEDS: Normal Saline - Diluent 50 ML VIAL IJ (07:00)
[2023-01-23 11:31] LABS: Campylobacter PCR Negative (Negative); Salmonella PCR Negative (Negative); Shiga Toxin PCR Negative (Negative); Shigella/Enteroinvasive Ecoli Negative (Negative)
== END 2023-01-21 07:15 | disposition home or self-care (01) ==
PROVIDERS: Emergency Provider Emergency Medicine Emergency Medical Services; PCP Nurse Practitioner
DX: R11.2 Nausea with vomiting, unspecified (principal); R19.7 Diarrhea, unspecified; E86.0 Dehydration; E11.9 Type 2 diabetes mellitus without complications; I10 Essential (primary) hypertension; Z79.82 Long term (current) use of aspirin; Z87.891 Personal history of nicotine dependence; Z79.84 Long term (current) use of oral hypoglycemic drugs
CPT/HCPCS: 36415; 80053; 83690; 87505; 93005; 96360; 99285; 74177; 81003; 83605; 85025; 93010; 99284; J3490

== ENCOUNTER → 2023-01-30 13:15 | Outpatient (BNVA) | payer MEDICARE, OTHER, SELFPAY | PROVIDERS: PCP Nurse Practitioner; Referring Provider Nurse Practitioner; Visit Provider Podiatrist | DX: M72.2 Plantar fascial fibromatosis (principal); M67.01 Short Achilles tendon (acquired), right ankle; M21.611 Bunion of right foot; M21.612 Bunion of left foot; M20.41 Other hammer toe(s) (acquired), right foot; M20.42 Other hammer toe(s) (acquired), left foot; M19.071 Primary osteoarthritis, right ankle and foot; M19.072 Primary osteoarthritis, left ankle and foot | CPT/HCPCS: 99213 ==

== ENCOUNTER 2023-02-03 10:39 | Emergency (ER) | payer MEDICARE, OTHER, SELFPAY ==
[2023-02-03 10:42] VITALS: BP 201/58; PULSE 75; RESP 20; TEMP 37.4; O2SAT 100
[2023-02-03 10:59] VITALS: TEMP 37.4
--- NOTE | 2023-02-03 10:59 | ED.GENADUL_ITS ---
Discharge Plan Disposition Patient Disposition: Home Condition: Stable Discharge Details Clinical Impression: Acute UTI Primary Care Provider: Mar Viera ED Provider: Aidan Leong Home Meds and New Rx's Prescriptions: New cefpodoxime 100 mg tablet 100 mg PO BID 7 Days Qty: 14 0RF Rx Instructions: must administer with a meal/food No Action famotidine 20 mg tablet 20 mg PO DAILY Qty: 90 3RF amlodipine 5 mg tablet 5 mg PO DAILY Qty: 90 3RF atorvastatin 10 mg tablet 10 mg PO DAILY Qty: 90 3RF ascorbic acid (vitamin C) 500 MG tablet 500 mg PO DAILY vitamin B complex 1 EACH tablet 1 ea PO DAILY [id number]-vpb-arcm-bor 1 EACH tablet 1 ea PO DAILY Probiotic and Acidophilus 1 EACH capsule 1 ea PO DAILY cholecalciferol (vitamin D3) 1,000 UNIT tablet 1,000 unit PO DAILY aspirin [Adult Low Dose Aspirin] 81 mg tablet,delayed release (DR/EC) 81 mg PO Q48H fluticasone propionate 50 mcg/actuation spray,suspension 50 mcg NS DAILY Qty: 1 6RF Rx Instructions: 1 spray/nostril daily fluticasone propionate [Flovent HFA] 110 mcg/actuation HFA aerosol inhaler See Rx Instructions .ROUTE .COMPLEX Qty: 36 2RF Dose Instruction: USE 1 INHALATION TWICE A DAY Rx Instructions: USE 1 INHALATION TWICE A DAY meclizine 25 mg tablet 25 mg PO DAILY PRN (Reason: vertigo) Qty: 60 3RF albuterol sulfate 90 mcg/actuation HFA aerosol inhaler 1 - 2 puff inhalation Q4H PRN (Reason: shortness of breath or wheezing) Qty: 1 3RF Rx Instructions: Dispense brand of albuterol inhaler covered by patient's insurance losartan 100 mg tablet 100 mg PO DAILY Qty: 90 3RF pantoprazole 40 mg tablet,delayed release (DR/EC) 40 mg PO DAILY Qty: 90 3RF (DME) OneTouch Ultra Test Strip See Rx Instructions .ROUTE .COMPLEX Qty: 100 3RF Dose Instruction: TEST BLOOD SUGAR ONCE DAILY TO MAINTAIN A/C AT 7 OR LESS Rx Instructions: TEST BLOOD SUGAR ONCE DAILY TO MAINTAIN A/C AT 7 OR LESS (DME) lancets [OneTouch Delica Plus Lancet] 33 gauge misc See Rx Instructions .ROUTE .COMPLEX Qty: 100 6RF Dose Instruction: TEST DAILY TO IDENTIFY BLOOD SUGAR FOR DM AND TO KEEP A1C AT OR BELOW 7 Rx Instructions: TEST DAILY TO IDENTIFY BLOOD SUGAR FOR DM AND TO KEEP A1C AT OR BELOW 7 Discharge Instructions Instructions: Urinary Tract Infection in Women (ED) Additional Instructions: Please take medications as prescribed. Please return to the emergency department for any worsening symptoms. Otherwise follow-up with your primary care physician Medical Decision Making 82-year-old female presents with hematuria and abnormal urinary sensation this morning denies abdominal pain flank pain fevers nausea vomiting or other sy stemic signs of illness. Denies history of UTIs or kidney stones. High clinical suspicion for UTI. Patient currently drinking water and attempting to give a urine sample. Resting comfortably no acute distress afebrile nontoxic. Consider UTI versus kidney stone lower suspicion for uterine or ovarian malignancy lower suspicion for intra-abdominal process such as bowel obstruction colitis or enteritis. Lower suspicion for pyelonephritis. Screening UA close reassessment 12: 24 evidence of UTI. Patient given first dose of cefpodoxime here in department. Will be given prescription for home. Home care instructions and return precautions given [facility] General Date/Time Provider Initiated Documentation: 02/03/23 10:41 . HPI Narrative: 82-year-old female presents with visible hematuria this morning, and abnormal sensation when she urinates. Denies history of UTIs or kidney stones in the past. Denies fevers nausea vomiting or other systemic signs of illness. Denies abdominal pain, denies flank pain Related Data Home Medications Medication Instructions Recorded Confirmed ascorbic acid (vitamin C) 500 mg 500 mg PO DAILY 06/18/12 02/03/23 tablet [id number]-wdjqv-jdhj-boron 1 ea PO DAILY 06/18/12 02/03/23 600 mg-200 unit-40 mg-7.5 mg tablet vitamin B complex 1 ea PO DAILY 06/18/12 02/03/23 Lactobacillus comb 1 ea PO DAILY 10/24/14 02/03/23 no.7-YET-[id number] 300 million cell-250 mg capsule (Probiotic and Acidophilus) cholecalciferol (vitamin D3) 25 1,000 unit PO DAILY 01/25/17 02/03/23 mcg (1,000 unit) tablet aspirin 81 mg tablet,delayed 81 mg PO Q48H 07/09/18 02/03/23 release (Adult Low Dose Aspirin) fluticasone propionate 50 50 mcg NS DAILY #1 unit 03/30/20 02/03/23 mcg/actuation nasal spray,suspension famotidine 20 mg tablet 20 mg PO DAILY #90 tabs 05/04/22 02/03/23 fluticasone propionate 110 See Rx Instructions .Route 05/23/22 02/03/23 mcg/actuation HFA aerosol inhaler .COMPLEX #36 grams (Flovent HFA) meclizine 25 mg tablet 25 mg PO DAILY PRN vertigo #60 tabs 09/06/22 02/03/23 albuterol sulfate 90 mcg/actuation 1 - 2 puff inhalation Q4H PRN 09/15/22 02/03/23 aerosol inhaler shortness of breath or wheezing #1 unit losartan 100 mg tablet 100 mg PO DAILY #90 tab-caps 09/26/22 02/03/23 pantoprazole 40 mg tablet,delayed 40 mg PO DAILY #90 tabs 09/26/22 02/03/23 release amlodipine 5 mg tablet 5 mg PO DAILY #90 tabs 11/02/22 02/03/23 atorvastatin 10 mg tablet 10 mg PO DAILY #90 tabs 11/02/22 02/03/23 blood sugar diagnostic (HandsTouch #100 strips 12/05/22 02/03/23 Ultra Test strips) lancets 33 gauge (HandsTouch Delica #100 ea 12/05/22 02/03/23 Plus Lancet) cefpodoxime 100 mg tablet 100 mg PO BID 7 days #14 tabs 02/03/23 Previous Rx's Medication Instructions Recorded fluticasone propionate 50 50 mcg NS DAILY #1 unit 03/30/20 mcg/actuation nasal spray,suspension famotidine 20 mg tablet 20 mg PO DAILY #90 tabs 05/04/22 fluticasone propionate 110 See Rx Instructions .Route 05/23/22 mcg/actuation HFA aerosol inhaler .COMPLEX #36 grams (Flovent HFA) meclizine 25 mg tablet 25 mg PO DAILY PRN vertigo #60 tabs 09/06/22 albuterol sulfate 90 mcg/actuation 1 - 2 puff inhalation Q4H PRN 09/15/22 aerosol inhaler shortness of breath or wheezing #1 unit losartan 100 mg tablet 100 mg PO DAILY #90 tab-caps 09/26/22 pantoprazole 40 mg tablet,delayed 40 mg PO DAILY #90 tabs 09/26/22 release amlodipine 5 mg tablet 5 mg PO DAILY #90 tabs 11/02/22 atorvastatin 10 mg tablet 10 mg PO DAILY #90 tabs 11/02/22 blood sugar diagnostic (HandsTouch #100 strips 12/05/22 Ultra Test strips) lancets 33 gauge (OneTouch Delica #100 ea 12/05/22 Plus Lancet) cefpodoxime 100 mg tablet 100 mg PO BID 7 days #14 tabs 02/03/23 Allergies Allergy/AdvReac Type Severity Reaction Status Date / Time mushroom Allergy Severe Anaphylaxsi Verified 02/03/23 10:47 s codeine Allergy Unknown as child, Verified 02/03/23 10:47 unknown Sulfa (Sulfonamide Allergy Unknown as child, Verified 02/03/23 10:47 Antibiotics) unknown lisinopril AdvReac Mild cough Verified 02/03/23 10:47 simvastatin AdvReac Mild 01/22/2017 Verified 02/03/23 10:47 joint pain General Stated Complaint: Urinary LACEY: 3 Review of Systems Narrative: Review of Systems Constitutional: negative Eyes: negative ENT: negative Cardiovascular: negative Respiratory: negative Gastrointestinal: negative : Dysuria Musculoskeletal: negative Skin: negative Neurologic: negative Psych: negative PFSH All Active Problems (Updated 02/03/23 @ 12:25 by Aidan Leong MD) Acute UTI (Acute) Dehydration, mild (Acute) Diarrhea (Acute) Weakness generalized (Acute) Degenerative joint disease of both ankles and feet (Acute) Acquired hammertoes of both feet (Acute) Bilateral bunions (Acute) Achilles tendon contracture, right (Acute) Plantar fasciitis, right (Acute) Gastric polyp (Acute) [place]AN (dyspnea on exertion) (Acute) Abdominal bloating (Acute) 08/30/18 [facility] [place] [facility] Eosinophilic gastritis (Chronic) Diabetes mellitus (Chronic) Gastroesophageal reflux disease (Acute 07/19/11) Medical History Actinic keratosis (~11/2021) 12/17/21 Derm BCC (basal cell carcinoma of skin) 04/02/20 New lesion lateral neck 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 Neville at [facility] Impaired fasting glucose (07/19/11) Hyperlipidemia (07/06/12) PCEq 15%; baseline LDL 149 Gallstone pancreatitis (10/26/12) lap cholecystectomy 09/2012 Dr Cox Essential hypertension (07/06/12) FRS 25% Esophageal reflux (07/19/11) Diabetes type 2, controlled (06/10/15) Benign paroxysmal positional vertigo of right ear (06/22/15) GERD (gastroesophageal reflux disease) Gallstone pancreatitis Chronic rhinitis Osteoarthritis Diverticulitis (09/16/14) Asthma Intermittent asthma. Dizziness Intermittent dizziness relieved with Meclizine. Obesity Stage I obesity with a BMI of 31 .0 Hyperlipidemia June 2012-Total cholesterol 232; triglycerides 147; LDL 148 and HDL 52 --todays labs pending. Pancreatitis (10/09/12) irst episode of pancreatitis of uncertain etiology. Surgical History History of appendectomy EGD - MAC (08/01/17) Cholecystectomy (10/11/12) H/O surgical procedure a. appendectomy as a child b. lap brock 2012 after having gallstone pancreatitis Family History Brother Heart disease pacemaker Neoplasm Kidney Social History Smoking/Tobacco Use Status: Former Tobacco Use Quit Date: 03/20/73 Smoking risk assessment performed?: Yes Alcohol Intake: current Alcohol Intake frequency: holidays/special occasions only Drug use: Never Substance use type: does not use Household members: none Number of Children: 0 Current gender identity: female What type of physical activity do you participate in: walking and other Details: Alexis Chi 1x/week Duration: 30-45 minutes/day Frequency: 3-4 times per week Do you feel safe at home: Yes Do you feel safe in your relationship?: Yes Additional Social history: lives alone Exam Narrative Exam Narrative: Physical Examination General: alert, awake, cooperative, resting comfortably, no acute distress HEENT: normocephalic, atraumatic; PERRL, EOM intact, conjunctiva normal; no nasal discharge; moist mucous membranes, oral and pharyngeal mucosa normal, tolerating secretions Neck: supple, trachea midline; full ROM Chest: normal to inspection Respiratory: normal respiratory effort, speaking in full sentences Skin: no lesions, rashes or trauma appreciated Neuro: AAOx3, normal speech, moving all extremities Psych: Appropriate mood and affect Course Vital Signs Vital signs: Vital Signs Temperature 37.4 C 02/03/23 10:42 Pulse 75 02/03/23 10:42 Respiratory Rate 20 02/03/23 10:42 Blood Pressure 201/58 H 02/03/23 10:42 Pulse Oximetry 100 02/03/23 10:42 Temperature 37.4 C 02/03/23 10:42 Temperature Source Skin 02/03/23 10:42 Pulse 75 02/03/23 10:42 Respiratory Rate 20 02/03/23 10:42 Respiratory Effort Normal, Non-Labored 02/03/23 10:49 Blood Pressure 201/58 H 02/03/23 10:42 Blood Pressure Position Sitting 02/03/23 10:42 Pulse Oximetry 100 02/03/23 10:42 Oxygen Delivery Method Room Air 02/03/23 10:42 Oxygen Flow Rate 0 02/03/23 10:42 Pain Level 0 02/03/23 10:42
[2023-02-03 11:45] LABS: Bilirubin Negative (Negative); Blood Large (Negative); Clarity Cloudy (Clear); Glucose Negative (Negative); Ketones Negative (Negative); Leukocyte Esterase Small (Negative); Nitrite Negative (Negative); Specific Gravity 1.025 (1.005-1.025); Urobilinogen 0.2 mg/dL (Up to 0.2); pH 5.5 (5-8)
[2023-02-03 11:51] LABS: Bacteria Moderate HPF (Negative); Epithelial Cells Few HPF (Negative); RBC 20-50 HPF (0-2)
[2023-02-03 11:52] LABS: C & S Indicated? Yes; Casts Negative LPF (Negative); Mucus Trace (Negative)
[2023-02-03] MEDS: Cefpodoxime 200 MG TAB PO (12:05)
[2023-02-03] MEDS: Phenazopyridine 100 MG TAB PO (12:06)
[2023-02-03 12:43] VITALS: BP 196/66; PULSE 66; RESP 18; O2SAT 96
== END 2023-02-03 12:38 | disposition home or self-care (01) ==
PROVIDERS: Emergency Provider Emergency Medicine; PCP Nurse Practitioner
DX: N39.0 Urinary tract infection, site not specified (principal); E86.0 Dehydration; I10 Essential (primary) hypertension; E78.5 Hyperlipidemia, unspecified; E11.9 Type 2 diabetes mellitus without complications; Z79.82 Long term (current) use of aspirin; Z87.891 Personal history of nicotine dependence
CPT/HCPCS: 87077; 99283; 81003; 81015; 87086; 87186

== ENCOUNTER 2023-11-23 03:36 | Outpatient (CLI) | payer MEDICARE, OTHER, SELFPAY ==
[2023-11-23 09:06] LABS: ALT 26 U/L (14-59); AST 16 U/L (15-37); Albumin 3.7 g/dL (3.4-5.0); Alkaline Phosphatase 84 U/L (46-116); Anion Gap 9.9 mmol/L (3-11); BUN 19 mg/dL (7-18); Bilirubin, Total 0.64 mg/dL (0.2-1.0); CO2 27.1 mmol/L (21.0-32.0); CREATININE 1.2 mg/dL (0.55-1.02); Calculated LDL 67 mg/dL (<100); Chloride 105 mmol/L (98-107); Cholesterol 153 mg/dL (<200); Estimated GFR 44.91 (mL/min/1.73m2); Glucose 131 mg/dL (74-106); HDL Cholesterol 61 mg/dL (40-60); Sodium 142 mmol/L (136-145); Triglyceride 126 mg/dL (<150)
== END 2023-11-23 03:37 | disposition home or self-care (01) ==
LOC: LBO 03:36
PROVIDERS: PCP Nurse Practitioner; Referring Provider Nurse Practitioner; Visit Provider Nurse Practitioner
DX: E78.5 Hyperlipidemia, unspecified (principal); E11.9 Type 2 diabetes mellitus without complications
CPT/HCPCS: 36415; 80053; 80061

== ENCOUNTER 2023-11-24 00:28 | Outpatient (CLI) | payer MEDICARE, OTHER, SELFPAY ==
--- NOTE | 2023-11-24 07:15 | DI.CT_ITS ---
Exam(s) CT ABDOMEN PELVIS W EXAM: CT ABDOMEN PELVIS W CLINICAL HISTORY: rlq abd pain, pain with palpation,r10.31 TECHNIQUE: Imaging Protocol: Axial computed tomography images with coronal and sagittal reformatted images were created and reviewed. CONTRAST MATERIAL: Intravenous: Omnipaque 350 Contrast volume:100 mL Oral: Yes COMPARISON: CT ABD PELVIS WITH CONTRAST from 09/15/[address] ABDOMEN PELVIS W from 01/21/2023 FINDINGS: ABDOMEN: Lung Bases: No acute pulmonary process. Liver: Normal density. No measurable mass. Portal, Superior Mesenteric, and Splenic Veins: Unremarkable. Gallbladder and Biliary Tract: Status post cholecystectomy. Common duct size is stable at 1 cm. Thi s likely reflects post cholecystectomy state. Pancreas: Normal density, no abnormal calcifications or inflammatory process. Spleen: Normal. Adrenals: No masses seen. Kidneys: Normal size, contour and axis. No radiodense stones or obstructive uropathy. Stable left cor tical and parapelvic cysts. No follow-up is recommended. Abdominal Aorta: Abdominal portion non-dilated. Atherosclerotic calcification is present. Bowel: There is diverticulosis of the colon without evidence of acute diverticulitis. There is a mod erate amount of stool seen throughout the colon. There is a small diverticulum the seen in the 2nd p ortion of the duodenum. Stomach is incompletely distended but grossly unremarkable. The appendix is not visualized. Peritoneal Cavity: No ascites, collection or mesenteric inflammatory response. No free air. Lymph Nodes: Within normal limits. Bones: Within normal limits for the patient's age. Soft Tissues: Unremarkable. PELVIS: Bladder: Symmetric distention, no gross wall thickening. Reproductive Organs: There is a calcified uterine fibroid. No suspicious ovarian lesions are seen. Lymph Nodes: Within normal limits. Bones: Within normal limits for the patient's age. IMPRESSION: 1. No acute abdominal or pelvic process. 2. Status post cholecystectomy. 3. No evidence of obstructive uropathy. 4. Colonic diverticulosis without evidence of acute diverticulitis. 5. Moderate amount of stool throughout the colon. This may reflect constipation. 6. No findings to suggest acute appendicitis. RADIATION DOSE DELIVERED: 365.74mGy.cm Total DLP DATA REPOSITORY: All CT scans at this facility are submitted to the National Radiology Data Registry (NRDR) Dose Index Registry (DIR) with the [employer] (A[employer]). RADIATION OPTIMIZATION: All CT scans at this facility use at least one of these dose optimization te chniques: automated exposure control; mA and/or kV adjustment per patient size (includes targeted exa ms where dose is matched to clinical indication); or iterative reconstruction.
[2023-11-24] MEDS: Barium Sulfate 2% W/V-Berry Smoothie 450 ML BTL PO ×2 (07:50→07:51)
[2023-11-24] MEDS: Omnipaque 350 MG/ML 500 ML BTL-Imaging package 100 ML IJ (09:57)
[2023-11-24] MEDS: Normal Saline - Diluent 50 ML VIAL IJ (09:57)
== END 2023-11-24 00:48 ==
LOC: DI 00:28
PROVIDERS: PCP Nurse Practitioner; Visit Provider Student in an Organized Health Care Education/Training Program
DX: R10.31 Right lower quadrant pain
CPT/HCPCS: 36415; 80048; 74177

== ENCOUNTER 2024-11-26 10:21 | Emergency (ER) | payer MEDICARE, OTHER, SELFPAY ==
[2024-11-26 10:27] VITALS: BP 180/92; PULSE 75; RESP 20; TEMP 36.8; O2SAT 96
--- NOTE | 2024-11-26 11:00 | DI.RAD_ITS ---
Exam(s) XR FOOT RT COMPLETE EXAM: XR FOOT RT COMPLETE CLINICAL HISTORY: atraumatic pain/swelling. TECHNIQUE: 2D digital imaging was performed. COMPARISON: CR XR FOOT RT COMPLETE from 12/26/2022 FINDINGS: 3 views There is no evidence of fracture or diastasis of the Lisfranc joint. There are again noted degenerative changes in the tarsometatarsal joints, most prominent in the 2nd and 3rd tarsometatarsal joints which is similar to previous. There are moderate degenerative changes in the great toe metatarsophalangeal joint. No evidence of stress fractures nor avascular necrosis of the metatarsal heads. Moderate size inferior calcaneal spur. There is a prominent bony excrescence off the distal dorsal aspect of the talus. Either broad base talar beak or osteo chondroma appear of IMPRESSION: Degenerative changes in the Lisfranc joints, similar to 12/26/2022. No fractures. Other findings as above. DATA REPOSITORY: RADIATION DOSE DELIVERED:
--- NOTE | 2024-11-26 11:00 | DI.US_ITS ---
Exam(s) US LOWER EXTREMITY VENOUS RT EXAM: US LOWER EXTREMITY VENOUS RT CLINICAL HISTORY: atraumatic pain/swelling TECHNIQUE: Grayscale, color, and doppler imaging of the deep venous system of the right lower extremity was performed. COMPARISON: US US ABDOMEN from 12/02/2021 FINDINGS: There is no evidence of intraluminal thrombus and there is normal compression and augmentation demonstrated within the common femoral vein, femoral vein, and popliteal vein. In the ipsilateral calf the interrogated veins also exhibit normal compression/ augmentation properties. The ipsilateral saphenofemoral junction is patent. IMPRESSION: 1. No evidence of DVT in the right lower extremity. DATA REPOSITORY:
--- NOTE | 2024-11-26 11:06 | ED.GENADUL_ITS ---
Discharge Plan Disposition Patient Disposition: Home Discharge Details Clinical Impression: Foot swelling Primary Care Provider: Mar Viera ED Provider: Miguel Loredo Home Meds and New Rx's Prescriptions: Continued amlodipine 5 mg tablet See Rx Instructions .ROUTE .COMPLEX Qty: 90 3RF Dose Instruction: TAKE 1 TABLET DAILY Rx Instructions: TAKE 1 TABLET DAILY atorvastatin 10 mg tablet See Rx Instructions .ROUTE .COMPLEX Qty: 90 3RF Dose Instruction: TAKE 1 TABLET DAILY Rx Instructions: TAKE 1 TABLET DAILY ascorbic acid (vitamin C) 500 MG tablet 500 mg PO DAILY vitamin B complex 1 EACH tablet 1 ea PO DAILY [id number]-bor 1 EACH tablet 1 ea PO DAILY Probiotic and Acidophilus 1 EACH capsule 1 ea PO DAILY cholecalciferol (vitamin D3) 1,000 UNIT tablet 1,000 unit PO DAILY aspirin [Adult Low Dose Aspirin] 81 mg tablet,delayed release (DR/EC) 81 mg PO Q48H fluticasone propionate 50 mcg/actuation spray,suspension 50 mcg NS DAILY Qty: 1 6RF Rx Instructions: 1 spray/nostril daily meclizine 25 mg tablet 25 mg PO DAILY PRN (Reason: vertigo) Qty: 60 3RF famotidine 40 mg tablet 20 mg PO DAILY Qty: 45 3RF albuterol sulfate 90 mcg/actuation HFA aerosol inhaler 1 - 2 puff inhalation Q4H PRN (Reason: shortness of breath or wheezing) Qty: 1 3RF Rx Instructions: Dispense brand of albuterol inhaler covered by patient's insurance fluticasone furoate [Arnuity Ellipta] 50 mcg/actuation blister with device 1 inh inhalation DAILY Qty: 90 12RF pantoprazole 40 mg tablet,delayed release (DR/EC) 40 mg PO DAILY Qty: 10 3RF (DME) OneTouch Ultra Test Strip See Rx Instructions .ROUTE .COMPLEX Qty: 100 3RF Dose Instruction: TEST BLOOD SUGAR ONCE DAILY TO MAINTAIN A/C AT 7 OR LESS Rx Instructions: TEST BLOOD SUGAR ONCE DAILY TO MAINTAIN A/C AT 7 OR LESS (DME) lancets [OneTouch Delica Plus Lancet] 33 gauge misc See Rx Instructions .ROUTE .COMPLEX Qty: 100 6RF Dose Instruction: TEST DAILY TO IDENTIFY BLOOD SUGAR FOR DM AND TO KEEP A1C AT OR BELOW 7 Rx Instructions: TEST DAILY TO IDENTIFY BLOOD SUGAR FOR DM AND TO KEEP A1C AT OR BELOW 7 losartan 100 mg tablet 100 mg PO DAILY Qty: 90 3RF Discharge Instructions Instructions: Foot Sprain ED Additional Instructions: Please follow-up with your primary care provider regarding your visit to the emergency department today. Be sure to discuss results of all test performed here today to include radiology, and laboratory testing as well as results for any pending cultures. Should your symptoms worsen, or if you develop new concerning symptoms, please return immediately emergency department for further evaluation. HPI General Date/Time Provider Initiated Documentation: 11/26/24 10:58 . HPI Narrative: MDM/Narrative: Initial Assessment: 84-year-old female with chronic kidney disease, hypertension, diabetes, presenting with left foot pain and swelling. Differential Diagnosis: - Blood clot: History of previous clot in same leg. Ultrasound to rule out. - Infection: No signs of infection on exam. Unlikely. - Plantar fasciitis: No history or symptoms consistent with plantar fasciitis. Unlikely. ED Course: - Ordered ultrasound to rule out blood clot. - Ordered X-ray. Disposition: - Discharge: Home. Follow-up with primary care if symptoms persist or worsen. This document was created with assistance from [employer]. The patient consented to its use. HPI: The patient is an 84-year-old female with a medical history significant for chronic kidney disease, hypertension, and diabetes mellitus, presenting with pain and edema in the left foot. The onset of discomfort in the left foot was noted on 11/25/2024, with the pain extending from the ankle to the leg. The patient describes the pain as unusual but not severe. There is no history of trauma or injury. The pain is localized to the ankle and heel, with no involvement of the calf. Ankle movement remains intact. This is the first occurrence of such symptoms. The patient denies fever or chills. There is no history of plantar fasciitis or morning foot pain. The left foot exhibits more pronounced edema compared to the right foot. The patient has a history of deep vein thrombosis in the affected leg and is not currently on anticoagulation therapy. ROS: Negative besides as mentioned above Exam: Vital signs: Reviewed. General Appearance: Alert and oriented. No acute distress. HEENT: NCAT, EOMI, not icteric. External ears normal. No rhinorrhea. Moist mucous membranes. Neck: Supple, full range of motion, no observable masses, No meningeal sign. Respiratory: No Respiratory distress. No tachypnea. Cardiovascular: DP pulses 2+ bilaterally. Gastrointestinal: Soft, nondistended, No rebound tenderness. Back: No midline tenderness to palpation or palpable step-offs of the C/T/L spine. Musculoskeletal: Mild swelling in right ankle, no palpable cords, no calf tenderness, no increased erythema, calor, induration or tenderness in foot, ankle or distal lower extremity. Right foot more swollen than left. Skin: Warm and dry, no rash. Neurological: Normal Gait, Grossly intact. Psychiatric: Appropriate for situation. Radiology: Exam(s) XR ANKLE RT COMPLETE EXAM: XR ANKLE RT COMPLETE CLINICAL HISTORY: atraumatic pain/swelling. TECHNIQUE: 2D digital imaging was performed. COMPARISON: No exams were available for comparison FINDINGS: 3 views No evidence fracture or widening the ankle mortise. There is age-related osteopenia. No osteochondral defects. No obvious degenerative changes in the tibiotalar and subtalar joints. There is a bony excrescence off the distal dorsal talus noted. This may be an osteo chondroma. There is no posing osteophyte on the navicular side of this articulation. There is a moderate size inferior calcaneal spur. There is also an enthesophyte on the posterior calcaneus Achilles insertion site. No calcification noted in the plantar fascia. IMPRESSION: No fractures. Other findings as above. Exam(s) XR FOOT RT COMPLETE EXAM: XR FOOT RT COMPLETE CLINICAL HISTORY: atraumatic pain/swelling. TECHNIQUE: 2D digital imaging was performed. COMPARISON: CR XR FOOT RT COMPLETE from 12/26/2022 FINDINGS: 3 views There is no evidence of fracture or diastasis of the Lisfranc joint. There are again noted degenerative changes in the tarsometatarsal joints, most prominent in the 2nd and 3rd tarsometatarsal joints which is similar to previous. There are moderate degenerative changes in the great toe metatarsophalangeal joint. No evidence of stress fractures nor avascular necrosis of the metatarsal heads. Moderate size inferior calcaneal spur. There is a prominent bony excrescence off the distal dorsal aspect of the talus. Either broad base talar beak or osteo chondroma appear of IMPRESSION: Degenerative changes in the Lisfranc joints, similar to 12/26/2022. No fractures. Other findings as above. DATA REPOSITORY: RADIATION DOSE DELIVERED: Related Data Home Medications ?Medication ?Instructions ?Recorded ?Confirmed ascorbic acid (vitamin C) 500 mg 500 mg PO DAILY 06/1811/26/24 tablet [id number]-lcaq-boron 1 ea PO DAILY 06/1811/26/24 600 mg-200 unit-40 mg-7.5 mg tablet vitamin B complex 1 ea PO DAILY 06/18/1211/26 Lactobacillus comb 1 ea PO DAILY 10/24/1411/26 no.3-[id number] 300 million cell-250 mg capsule (Probiotic and Acidophilus) cholecalciferol (vitamin D3) 25 1,000 unit PO DAILY 11/26/24 mcg (1,000 unit) tablet aspirin 81 mg tablet,delayed 81 mg PO Q48H 07/09/18 release (Adult Low Dose Aspirin) fluticasone propionate 50 50 mcg NS DAILY #1 unit 03/2011/26/24 mcg/actuation nasal spray,suspension meclizine 25 mg tablet 25 mg PO DAILY PRN vertigo # 60 tabs 09/06/22 11/26/24 famotidine 40 mg tablet 20 mg (1/2 x 40 mg) PO DAILY #45 03/05/24 11/26/24 tabs albuterol sulfate 90 mcg/actuation 1 - 2 puff inhalati on Q4H PRN 06/24/24 11/26/24 aerosol inhaler shortness of breath or wheez ing #1 unit fluticasone furoate 50 1 inh inhalation DAILY #90 e a 08/19/24 11/26/24 mcg/actuation blister powder for inhalation (Arnuity Ellipta) pantoprazole 40 mg tablet,delayed 40 mg PO DAILY #10 t abs 08/23/24 11/26/24 release blood sugar diagnostic ([employer] #100 strips 09/26/24 11/26/24 Ultra Test strips) lancets 33 gauge ([employer] Delica #100 ea 09/26/2412/12 Plus Lancet) losartan 100 mg tablet 100 mg PO DAILY #90 tab-caps 10/31/24 11/26/24 amlodipine 5 mg tablet See Rx Instructions .Route 0 11/15/24 11/26/24 .COMPLEX #90 tabs atorvastatin 10 mg tablet See Rx Instructions .Route 0 11/15/24 11/26/24 .COMPLEX #90 tabs Previous Rx's ?Medication ?Instructions ?Recorded fluticasone propionate 50 50 mcg NS DAILY #1 unit 03/20 04/09 mcg/actuation nasal spray,suspension meclizine 25 mg tablet 25 mg PO DAILY PRN vertigo # 60 tabs 09/06/22 famotidine 40 mg tablet 20 mg (1/2 x 40 mg) PO DAILY #45 03/05/24 tabs albuterol sulfate 90 mcg/actuation 1 - 2 puff inhalati on Q4H PRN 06/24/24 aerosol inhaler shortness of breath or wheez ing #1 unit fluticasone furoate 50 1 inh inhalation DAILY #90 e a 08/19/24 mcg/actuation blister powder for inhalation (Arnuity Ellipta) pantoprazole 40 mg tablet,delayed 40 mg PO DAILY #10 t abs 08/23/24 release blood sugar diagnostic ([employer] #100 strips 09/26/24 Ultra Test strips) lancets 33 gauge (OneTouch Delica #100 ea 09/26/24 Plus Lancet) losartan 100 mg tablet 100 mg PO DAILY #90 tab-caps 10/31/24 amlodipine 5 mg tablet See Rx Instructions .Route 0 11/15/24 .COMPLEX #90 tabs atorvastatin 10 mg tablet See Rx Instructions .Route 0 11/15/24 .COMPLEX #90 tabs Allergies Allergy/AdvReac Type Severity Reaction Status Date / Time mushroom Allergy Severe Anaphylaxsi Verified 11/26/24 10:26 s codeine Allergy Unknown as child, Verified 11/26/24 10:26 unknown Sulfa (Sulfonamide Allergy Unknown as child, Verified 11/26/24 10:26 Antibiotics) unknown lisinopril AdvReac Mild cough Verified 11/26/24 10:26 simvastatin AdvReac Mild 01/22/2017 Verified 11/26/24 10:26 joint pain General Stated Complaint: Vascular LACEY: 3 Course Vital Signs Vital signs: Vital Signs Temperature 36.8 C 11/26/24 10:27 Pulse 75 11/26/24 10:27 Respiratory Rate 20 11/26/24 10:27 Blood Pressure 180/92 H 11/26/24 10:27 Pulse Oximetry 96 11/26/24 10:27 Temperature 36.8 C 11/26/24 10:27 Temperature Source Temporal Artery Scan 11/26/24 10:27 Pulse 75 11/26/24 10:27 Respiratory Rate 20 11/26/24 10:27 Blood Pressure 180/92 H 11/26/24 10:27 Blood Pressure Position Sitting 11/26/24 10:27 Pulse Oximetry 96 11/26/24 10:27 Oxygen Delivery Method Room Air 11/26/24 10:27 Oxygen Flow Rate 0 11/26/24 10:27 Pain Level 9 11/26/24 10:27 PFSH All Active Problems (Updated 11/26/24 @ 14:30 by Miguel Loredo MD) Foot swelling (Acute) Cognitive decline (Acute) Chronic kidney disease (CKD) stage G3b/A1, moderately decreased glomerular filtration rate (GFR) between 30-44 mL/min/1.73 square meter and albuminuria creatinine ratio less than 30 mg/g (Acute) Hypertension (Chronic) Asthma (Chronic) Fatigue (Acute) RLQ abdominal pain (Acute) re-ordered CT WITH per [place], [place] Degenerative joint disease of both ankles and feet (Acute) Acquired hammertoes of both feet (Acute) Bilateral bunions (Acute) Achilles tendon contracture, right (Acute) Plantar fasciitis, right (Acute) Gastric polyp (Acute) ALBARRAN (dyspnea on exertion) (Acute) Abdominal bloating (Acute) 08/30/18 [facility] [place] [facility] Eosinophilic gastritis (Chronic) Diabetes mellitus (Chronic) Gastroesophageal reflux disease (Acute 07/19/11) Medical History (Updated 11/26/24 @ 14:30 by Miguel Loredo MD) Hx of basal cell carcinoma (~03/2020) 12/26/[address] Up with Dr Borrero Bilateral cataracts (~10/2023) Actinic keratosis (~11/2021) 12/17/21 Derm BCC (basal cell carcinoma of skin) 04/02/20 New lesion lateral neck SCCA vs. BCCA Derm: [facility] Internal hemorrhoids Skin lesions Low back pain Grief PTSD (post-traumatic stress disorder) Insomnia Vertigo (05/08/15) Osteopenia (01/09/12) DEXA 12/2011 NL except forearm T -1.3 Osteoarthrosis (10/22/13) in Knee per Dr. Neville at [facility] Impaired fasting glucose (07/19/11) Hyperlipidemia (07/06/12) PCEq 15%; baseline LDL 149 Gallstone pancreatitis (10/26/12) lap cholecystectomy 09/2012 Dr Cox Essential hypertension (07/06/12) FRS 25% Esophageal reflux (07/19/11) Diabetes type 2, controlled (06/10/15) Benign paroxysmal positional vertigo of right ear (06/22/15) GERD (gastroesophageal reflux disease) Gallstone pancreatitis Chronic rhinitis Osteoarthritis Diverticulitis (09/16/14) Asthma Intermittent asthma. Dizziness Intermittent dizziness relieved with Meclizine. Obesity Stage I obesity with a BMI of 31 .0 Hyperlipidemia June 2012-Total cholesterol 232; triglycerides 147; LDL 148 and HDL 52--todays labs pending. Pancreatitis (10/09/12) irst episode of pancreatitis of uncertain etiology. Surgical History History of appendectomy EGD - MAC (08/01/17) Cholecystectomy (10/11/12) H/O surgical procedure a. appendectomy as a child b. lap brock 2012 after having gallstone pancreatitis Family History Brother Heart disease pacemaker Neoplasm Kidney Social History Smoking/Tobacco Use Status: Former Tobacco Use Quit Date: 03/20/73 Smoking risk assessment performed?: Yes Alcohol Intake: current Alcohol Intake frequency: holidays/special occasions only Drug use: Never Substance use type: does not use Household members: none Number of Children: 0 Current gender identity: female What type of physical activity do you participate in: walking and other Details: Alexis Chi 1x/week Duration: 30-45 minutes/day Frequency: 3-4 times per week Do you feel safe at home: Yes Do you feel safe in your relationship?: Yes Additional Social history: lives alone
[2024-11-26 11:28] VITALS: RESP 16
== END 2024-11-26 15:34 | disposition home or self-care (01) ==
PROVIDERS: Emergency Provider General Practice; PCP Nurse Practitioner
DX: R22.42 Localized swelling, mass and lump, left lower limb (principal)
CPT/HCPCS: 99284; 99283; 73610; 73630; 93971

== ENCOUNTER 2024-12-02 01:52 | Outpatient (CLI) | payer MEDICARE, OTHER, SELFPAY ==
[2024-12-02 11:52] LABS: Abs Immature Grans 0.03 10^3/uL (0.0-0.06); HCT 37.8 % (36.0-46.0); HGB 12.4 g/dL (11.2-15.7); Immature Grans % 0.3 %; MCH 30.0 pg (27.0-33.0); MCHC 32.8 % (32.0-36.0); MCV 92 fL (80-95); MPV 11.2 fL (8.0-11.0); Platelet Count 325 10^3/uL (130-400); RBC 4.13 10^6/uL (3.93-5.22); RDW 13.0 % (11.7-14.6); RDW-SD 43.4 fL; WBC 9.51 10^3/uL (4.4-10.8)
[2024-12-02 12:03] LABS: Glucose Negative (Negative)
[2024-12-02 12:21] LABS: RBC 0-2 HPF (0-2); WBC 0-2 HPF (0-5)
[2024-12-02 12:22] LABS: C & S Indicated? No
[2024-12-02 12:31] LABS: Hemoglobin A1C 6.8 % (<5.7)
[2024-12-02 12:42] LABS: ALT 28 U/L (14-59); AST 18 U/L (15-37); Albumin 3.6 g/dL (3.4-5.0); Alkaline Phosphatase 85 U/L (46-116); Anion Gap 9.0 mmol/L (3-11); BUN 20 mg/dL (7-18); Bilirubin, Total 0.5 mg/dL (0.2-1.0); CO2 29.0 mmol/L (21.0-32.0); Calcium 9.4 mg/dL (8.5-10.1); Calculated LDL 71 mg/dL (<100); Chloride 103 mmol/L (98-107); Cholesterol 156 mg/dL (<200); Estimated GFR 49.55 (mL/min/1.73m2); Glucose 154 mg/dL (74-106); HDL Cholesterol 51 mg/dL (>or=50); Potassium 4.3 mmol/L (3.5-5.1); Sodium 141 mmol/L (136-145); TSH 1.83 uIU/mL (0.36-3.74); Total Protein 7.3 g/dL (6.4-8.2); Triglyceride 174 mg/dL (<150)
== END 2024-12-02 01:53 | disposition home or self-care (01) ==
LOC: LBO 01:52
PROVIDERS: PCP Nurse Practitioner; Visit Provider Family Medicine
DX: E78.5 Hyperlipidemia, unspecified (principal); Z13.9 Encounter for screening, unspecified; E11.9 Type 2 diabetes mellitus without complications; R53.83 Other fatigue; D64.9 Anemia, unspecified
CPT/HCPCS: 36415; 80053; 80061; 81003; 81015; 83036; 84443; 85025